=== PATIENT | male | born 1935 | race Caucasian/White ===

== ENCOUNTER 2017-08-28 01:20 | Emergency (ER) | payer MEDICARE, BC ==
[2016-11-27 11:46] VITALS: BMI 30.1
--- NOTE | 2017-08-28 01:23 | ER Report ---
History and Physical Time Seen By MD: 01:20 HPI/ROS CHIEF COMPLAINT: Altered mental status, left arm pain and weakness HISTORY OF PRESENT ILLNESS: 81-year-old male with a history of a pacemaker, cardiac disease, type II diabetes on insulin, chronic end-stage renal disease, not on dialysis was brought in by EMS after he fell asleep in his recliner. He was not wearing his O2. He was mildly hypoxic complaining of left arm pain when his attempted to arouse him. He had no prodromal symptoms. She's not been feeling ill today. He was in his usual state of health. EMS applied O2 brought into the ER. He is in his usual state of health. He voices no complaints. On arrival. She notes no diaphoresis or nausea. He denies shortness of breath. REVIEW OF SYSTEMS: Respiratory: No cough, no dyspnea. Cardiovascular: No chest pain, no palpitations. Gastrointestinal: No vomiting, no abdominal pain. Musculoskeletal: No back pain. Allergies: Coded Allergies: Sulfa (Sulfonamide Antibiotics) (Unverified Allergy, Mild, RASH, 11/27/16) Home Meds Active Scripts Aspirin (ASPIRIN) 81 Mg Tab.chew, 81 MG PO QDAY, #30 TAB.CHEW 10 Refills Prov:JENN PARKINSON MD FACP 08/30/15 Reported Medications Insulin Lispro (HUMALOG) 100 Unit/1 Ml Vial, 100 UNIT SQ, VIAL 11/27/16 Tramadol Hcl (TRAMADOL HCL) 50 Mg Tablet, 1 TAB PO Q4H Y for PAIN, TAB 08/13/16 Metoprolol Succinate (TOPROL XL) 100 Mg Tab.er.24h, 1 TAB PO QDAY, TAB 08/13/16 Hydralazine Hcl (HYDRALAZINE HCL) 50 Mg Tablet, 50 MG PO BID, TAB 08/13/16 [drisdol] No Conflict Check, 95147 PO Q30D ergocalciferol, vitamin D2 08/13/16 Benazepril Hcl (LOTENSIN) 40 Mg Tablet, 40 MG PO BID, TAB 08/13/16 Acetaminophen (TYLENOL) 325 Mg Tablet, 325 MG PO PRN, TAB 08/11/16 Famotidine (FAMOTIDINE) 20 Mg Tablet, 20 MG PO QDAY, TAB 06/08/16 Oxygen (OXYGEN) 2 L Inha, 1.5 L INH PRN, L 12/06/14 Insulin Glargine (Lantus) 100 U/Ml Soln, 27 UNITS SUBQ HS 08/08/12 Triamcinolone Acet (KENALOG 0.1% CREAM (OR EQUIV)) 15 Gm Cr, 1 SAMARA TOP BID Y for ITCHING 08/08/12 Doxazosin Mesylate (Cardura) 8 Mg Tablet, 8 MG PO HS 08/08/12 Simvastatin (Zocor) 40 Mg Tablet, 40 MG PO HS 08/08/12 Past Medical/Surgical History Past medical history: Cardiac pacemaker, type II diabetes, insulin required chronic kidney disease stage IV, with GFR 22 meals per minute, history of coronary artery disease, hypertension. Past surgical history pacemaker placement Reviewed Nurses Notes: Yes Old Medical Records Reviewed: Yes Hx Smoking: Yes Smoking Status: Former Smoker Exposure to Second Hand Smoke?: No Hx Substance Use Disorder: No Hx Alcohol Use: Yes Constitutional Vital Sign - Last 24 Hours 08/28/17 08/28/17 08/28/17 08/28/17 01:20 01:27 01:27 01:30 Temp 97.8 Pulse 71 77 Resp 16 B/P (MAP) 160/94 135/90 (105) Pulse Ox 90 96 O2 Delivery Room Air O2 Flow Rate 3.0 08/28/17 08/28/17 08/28/17 08/28/17 01:35 01:50 02:00 02:05 Pulse 79 70 72 Resp 20 20 21 B/P (MAP) 130/87 (101) Pulse Ox 96 97 97 08/28/17 02:20 Pulse 71 Resp 21 Pulse Ox 95 Physical Exam Vital signs stable, afebrile, pulse ox normal on supplemental O2 General Appearance: The patient is alert, has no immediate need for airway protection and no current signs of toxicity. No acute distress, alert and oriented 3 HEENT: Pupils equal and round no injection. TMs normal, oropharynx without redness or exudate, mucous members are moist Respiratory: Chest is non tender, lungs are clear to auscultation. No wheezing or rails. No chest wall tenderness Cardiac: regular rate and rhythm Gastrointestinal: Abdomen is soft and non tender, no masses, bowel sounds normal. Musculoskeletal: Neck: Neck is supple and non tender. No lymphadenopathy, no JVD Extremities have full range of motion and are non tender. Skin: No rashes or lesions. DIFFERENTIAL DIAGNOSIS: After history and physical exam differential diagnosis was considered for chest pain including but not limited to myocardial ischemia, pericarditis pulmonary embolus, chest wall pain, pleural inflammation and pulmonary infectious causes. Medical Decision Making Data Points Result Diagram: 08/28/17 0115 08/28/17 0115 Laboratory Hematology Test 08/28/17 01:15 Red Blood Count 5.35 M/uL (4.00-5.60) Mean Corpuscular Volume 86.4 fL (80.0-96.0) Mean Corpuscular Hemoglobin 29.1 pg (26.0-33.0) Mean Corpuscular Hemoglobin Concent 33.7 g/dL (32.0-36.0) Red Cell Distribution Width 13.4 % (11.5-14.5) Mean Platelet Volume 8.8 fL (7.2-11.1) Neutrophils (%) (Auto) 60.0 % (39.4-72.5) Lymphocytes (%) (Auto) 26.3 % (17.6-49.6) Monocytes (%) (Auto) 10.8 % (4.1-12.4) Eosinophils (%) (Auto) 2.2 % (0.4-6.7) Basophils (%) (Auto) 0.7 % (0.3-1.4) Nucleated RBC Relative Count (auto) 0.0 /100WBC Neutrophils # (Auto) 4.9 K/uL (2.0-7.4) Lymphocytes # (Auto) 2.1 K/uL (1.3-3.6) Monocytes # (Auto) 0.9 K/uL (0.3-1.0) Eosinophils # (Auto) 0.2 K/uL (0.0-0.5) Basophils # (Auto) 0.1 K/uL (0.0-0.1) Nucleated RBC Absolute Count (auto) 0.00 K/uL D-Dimer Quantitative (PE/DVT) 0.92 ug/ml (0-0.50) Sodium Level 135 mmol/L (137-145) Potassium Level 4.7 mmol/L (3.5-5.0) Chloride Level 98 mmol/L (98-107) Carbon Dioxide Level 23 mmol/L (22-30) Blood Urea Nitrogen 61 mg/dl (9-21) Creatinine 2.60 mg/dl (0.66-1.25) Glomerular Filtration Rate Calc 23.7 Random Glucose 217 mg/dl (75-110) Lactate 2.0 mmol/L (0.7-2.1) Calcium Level 10.7 mg/dl (8.4-10.2) Total Bilirubin 0.4 mg/dl (0.2-1.3) Aspartate Amino Transf (AST/SGOT) 17 U/L (0-35) Alanine Aminotransferase (ALT/SGPT) 25 U/L (0-56) Alkaline Phosphatase 77 U/L (0-126) Troponin I 0.058 ng/ml B-Type Natriuretic Peptide 161 pg/ml (0-100) Total Protein 6.9 gm/dl (6.3-8.2) Albumin 3.9 g/dl (3.5-5.0) Chemistry Test 08/28/17 01:15 White Blood Count 8.1 k/uL (4.5-11.0) Red Blood Count 5.35 M/uL (4.00-5.60) Hemoglobin 15.6 g/dL (14.0-18.0) Hematocrit 46.3 % (42.0-52.0) Mean Corpuscular Volume 86.4 fL (80.0-96.0) Mean Corpuscular Hemoglobin 29.1 pg (26.0-33.0) Mean Corpuscular Hemoglobin Concent 33.7 g/dL (32.0-36.0) Red Cell Distribution Width 13.4 % (11.5-14.5) Platelet Count 187 K/uL (150-450) Mean Platelet Volume 8.8 fL (7.2-11.1) Neutrophils (%) (Auto) 60.0 % (39.4-72.5) Lymphocytes (%) (Auto) 26.3 % (17.6-49.6) Monocytes (%) (Auto) 10.8 % (4.1-12.4) Eosinophils (%) (Auto) 2.2 % (0.4-6.7) Basophils (%) (Auto) 0.7 % (0.3-1.4) Nucleated RBC Relative Count (auto) 0.0 /100WBC Neutrophils # (Auto) 4.9 K/uL (2.0-7.4) Lymphocytes # (Auto) 2.1 K/uL (1.3-3.6) Monocytes # (Auto) 0.9 K/uL (0.3-1.0) Eosinophils # (Auto) 0.2 K/uL (0.0-0.5) Basophils # (Auto) 0.1 K/uL (0.0-0.1) Nucleated RBC Absolute Count (auto) 0.00 K/uL D-Dimer Quantitative (PE/DVT) 0.92 ug/ml (0-0.50) Glomerular Filtration Rate Calc 23.7 Lactate 2.0 mmol/L (0.7-2.1) Calcium Level 10.7 mg/dl (8.4-10.2) Total Bilirubin 0.4 mg/dl (0.2-1.3) Aspartate Amino Transf (AST/SGOT) 17 U/L (0-35) Alanine Aminotransferase (ALT/SGPT) 25 U/L (0-56) Alkaline Phosphatase 77 U/L (0-126) Troponin I 0.058 ng/ml B-Type Natriuretic Peptide 161 pg/ml (0-100) Total Protein 6.9 gm/dl (6.3-8.2) Albumin 3.9 g/dl (3.5-5.0) Coagulation Test 08/28/17 01:15 D-Dimer Quantitative (PE/DVT) 0.92 ug/ml EKG/Imaging EKG Interpretation 12 lead EK Rhythm: Sinus rhythm with premature atrial complexes, left bundle block pattern Todd: normal QRS: normal ST segments: normal, comparison to previous EKG dated 11/27/16 Imaging X-ray: Single view portable chest x-ray was obtained. I viewed the images myself on the PACS system. My interpretation of the images is: No infiltrate, no effusion, intact pacemaker, normal mediastinum., Comparison to previous chest x-ray dated 11/27/16, no significant change. The radiologist interpretation had no clinically significant variation from this interpretation. ED Course/Re-evaluation Clinical Indication for ER IV: IV Access ED Course Patient was admitted to an examination room. H&P was done. The differential diagnoses was considered. On clinical examination. Patient on arrival the ER is doing fine. EMS found him without his oxygen on. He was hypoxic. Complaining of some left arm pain. His at some difficulty arousing him. In the ER is exam is unremarkable. Diagnostic studies are performed. His EKG is unchanged. His troponin comes back mildly elevated at 0.058. His d-dimer was slightly elevated but I do not suspect he had a PE. Unfortunately, cannot have a CT pulmonary angiogram. I do not think it warrants it. Ventilation perfusion scan. Review of his records reveals that he had a troponin running in the 0.070 range through serial checks back in November. He has chronic renal failure. His young cranial nerve baseline. Chest x-ray is unremarkable. Patient advised to follow-up with Dr. Wright his primary doctor this week. Decision to Disposition Date: Aug 28, 2017 Decision to Disposition Time: 02:18 Depart Departure Latest Vital Signs Vital Signs Date Time Temp Pulse Resp B/P (MAP) Pulse Ox O2 Delivery O2 Flow Rate FiO2 08/28/17 02:20 71 21 95 08/28/17 02:00 130/87 (101) 08/28/17 01:27 3.0 08/28/17 01:27 97.8 Room Air Impression: Primary Impression: Hypoxia Additional Impressions: Left arm pain Chronic renal failure Pacemaker Type II diabetes mellitus Condition: Improved Disposition: HOME OR SELF-CARE Referrals: ERROL WRIGHT DO (PCP) Patient Instructions: Arm Pain (ED) Problem Qualifiers Additional Impressions: Chronic renal failure Chronic kidney disease stage: unspecified stage Qualified Codes: N18.9 - Chronic kidney disease, unspecified KOJO CRAWFORD DO Aug 28, 2017 01:23
[2017-08-28] MEDS ORDERED: NS(*) 0.9% 500 ML BAG 500 ML IV ONE (01:29)
[2017-08-28] MEDS ORDERED: ASPIRIN 81 MG CHEW PO ONE (01:30)
[2017-08-28 01:38] LABS: PLATELET COUNT, AUTOMATED 187 K/uL (150-450)
--- NOTE | 2017-08-28 01:58 | EKG ---
[facility] PATIENT NAME: KATHYA BRYAN : [id number] MR: [id number] V: [id number] EXAM DATE: ORDERING PHYSICIAN: KOJO CRAWFORD TECHNOLOGIST: David Murphy Reason : Blood Pressure : / mmHG Vent. Rate : 076 BPM Atrial Rate : 076 BPM P-R Int : 192 ms QRS Dur : 168 ms QT Int : 434 ms P-R-T Axes : 032 -07 138 degrees QTc Int : 488 ms Sinus rhythm with premature atrial complexes Left bundle branch block Abnormal ECG No previous ECGs available Confirmed by PHYLICIA JONES ([id number]) on 08/28/2017 6:38:02 AM Referred By: Confirmed By:PHYLICIA JONES
[2017-08-28 02:00] VITALS: BP 130/87
--- NOTE | 2017-08-28 02:09 | RADIOLOGY IMAGING REPORT ---
FACILITY: [facility] - [place] PATIENT NAME: Pawel Azul : 1935 MR: [id number] V: [id number] EXAM DATE: ORDERING PHYSICIAN: KOJO CRAWFORD TECHNOLOGIST: Location: [facility] [place] Patient: Pawel Azul : 1935 Visit/Account:[id number] Date of Sevice: 08/28/2017 CHEST SINGLE AP 08/28/2017 01:29 hours. HISTORY: Chest pain. COMPARISON: 11/27/2016 and studies dating to 08/08/2012. TECHNIQUE: Portable AP view of the chest. FINDINGS: Tubes/lines/hardware: Pacemaker generator overlies the left axilla, and leads terminate in the right atrium and right ventricle. Pulmonary: The left costophrenic angle is excluded. There is mild left basilar atelectasis or scarrin g, unchanged. The right lung is clear. There is no pneumothorax or pleural effusion. Cardiomediastinal: The cardiac silhouette is at the upper limits of normal, unchanged. The mediastina l silhouette is within normal limits. There is severe aortic calcification. Bones/soft tissues: No acute osseous abnormality. There is mild degenerative change of the spine. The visible abdomen is normal. IMPRESSION: 1. Stable chest without acute process. Report Dictated By: Lissette Swartz at 08/28/2017 2:03 AM Report E-Signed By: Lissette Swartz at 08/28/2017 2:05 AM WSN:[id number]
== END 2017-08-28 02:28 | disposition home or self-care (01) ==
LOC: ER 01:25
DX: E11.9 Type 2 diabetes mellitus without complications (principal); N18.9 Chronic kidney disease, unspecified; Z95.0 Presence of cardiac pacemaker; R09.02 Hypoxemia; M79.602 Pain in left arm; I44.7 Left bundle-branch block, unspecified
CPT/HCPCS: 71045; 83605; 83880; 84484; 85025; 85379; 93005; 96360; 99284; A9270; J7040; 82040; 82247; 82310; 82374; 82435; 82565; 82947; 84075; 84132; 84155; 84295; 84450; 84460; 84520

== ENCOUNTER → 2017-08-28 | Outpatient (CLI) | payer MEDICARE, BC ==
[2016-11-27 11:46] VITALS: BMI 30.1
[~2017-08-28] MED LIST: ACET-1966 PO; AMLO-98 PO; AMLO-99 PO; ASPI81TA94 PO; BENA40TA2 PO; BENA40TA52 PO; BETD15T TOP; CEPH-312; CHOL10005 PO; CLOB59LO4 TP; DOXA8TAB62 PO; ENOX100D5 SQ; FAMO-67 PO; FUR20 PO; HUMALOG SUBQ; HYDR25CA83 PO; HYDR25TA66 PO; HYDR50TA35 PO; INSU100C14 SQ; INSU100V24 SQ; LANI SUBQ; LEV500 PO; LOR5/325; Levofloxacin PO; METO-235 PO; METO-259; METO50TA19 PO; Metronidazole PO; NOR10 PO; NOVOLOG SUBQ; ONDA4TAB PO; OSE75 PO; OXYC-865 PO; OXYGENHOME INH; POLY119P24 PO; PRED20TA6 PO; Prednisone PO; SIMV-44 PO; SUVO20TA PO; TRA50 PO; TRAM-420 PO; TRAZ50 PO; TRIC15T TOP; WARF-1 PO; [UNRECOGNIZED DRUG - CODE] TOP; [UNRECOGNIZED DRUG - OTHER]; drisdol PO
== END ==
LOC: AMB 00:57
PROVIDERS: ATTEND Nurse Practitioner
DX: R53.1 Weakness (principal); M79.602 Pain in left arm; M79.662 Pain in left lower leg; I44.7 Left bundle-branch block, unspecified; I49.3 Ventricular premature depolarization; E11.9 Type 2 diabetes mellitus without complications; Z95.0 Presence of cardiac pacemaker
CPT/HCPCS: A0425; A0427

== ENCOUNTER → 2017-09-07 | Outpatient (CLI) | payer MEDICARE, BC ==
[2016-11-27 11:46] VITALS: BMI 30.1
--- NOTE | 2017-09-07 15:20 | RADIOLOGY IMAGING REPORT ---
[place] [facility] [place] NAME: Pawel Azul : 1935 MR: [id number] V: [id number] EXAM DATE: ORDERING PHYSICIAN: ERROL WRIGHT TECHNOLOGIST: Location: [facility] [place] Patient: Pawel Azul : 1935 Visit/Account:[id number] Date of Sevice: 09/07/[address] scan without contrast HISTORY: Altered mental status COMPARISONS: None TECHNIQUE: Non-contrast head CT was performed with sagittal and coronal reformations. One of the following dose optimization techniques was utilized in the performance of this exam: autom ated exposure control; adjustment of the mA and/or kV according to patient size; or use of iterative reconstruction technique. Specific details can be referenced in the facility's radiology CT exam ope rational policy. FINDINGS: There is no intracranial hemorrhage, hydrocephalus or midline shift. The basal cisterns, baxter-white differentiation, and convexity sulci are maintained. Cataract postsurgical change noted. Chronic lacu gerald infarct versus chronic cystic cavity in the left basal ganglia extends into the left frontal whit e matter. Chronic lacunar infarct in the left frontal deep white matter. Similar chronic lacunar infa rct in the right frontal deep white matter. Mild patchy white matter hypoattenuation. The mastoid air cells are clear. The paranasal sinuses are clear. The osseous structures are normal . IMPRESSION: 1. No acute intracranial abnormality. 2. Chronic lacunar infarct versus chronic cystic cavity from prior ischemia or hemorrhage in the left basal ganglia extends into the left frontal deep white matter. 3. Mild chronic small vessel ischemic change. 4. Chronic lacunar infarcts in the bilateral frontal deep white matter. Report Dictated By: Jacky Donnelly MD at 09/07/2017 3:11 PM Report E-Signed By: Jacky Donnelly MD at 09/07/2017 3:16 PM WSN:[email or web address]
== END ==
LOC: CT 07:52
PROVIDERS: ATTEND Family Medicine
DX: R90.82 White matter disease, unspecified (principal); I67.82 Cerebral ischemia
CPT/HCPCS: 70450

== ENCOUNTER 2017-10-04 08:56 | Emergency (ER) | payer MEDICARE, BC ==
[2016-11-27 11:46] VITALS: Wt 86.4 kg
--- NOTE | 2017-10-04 09:00 | ER Report ---
History and Physical Time Seen By MD: 08:59 HPI/ROS CHIEF COMPLAINT: Right knee injury HISTORY OF PRESENT ILLNESS: Patient is an 81-year-old male who states that he injured his right knee on Tuesday. He states he was at [facility] getting off of a motorized cart and slipped causing his right knee to twist. He is able to ambulate but he is complaining of pain mostly to the lateral aspect of the right knee. He denies any other injuries or complaints. He has a prior left knee replacement.] REVIEW OF SYSTEMS: Respiratory: No cough, no dyspnea. Cardiovascular: No chest pain, no palpitations. Gastrointestinal: No vomiting, no abdominal pain. Musculoskeletal: No back pain. Right knee pain Allergies: Coded Allergies: Sulfa (Sulfonamide Antibiotics) (Unverified Allergy, Mild, RASH, 11/27/16) Home Meds Active Scripts Aspirin (ASPIRIN) 81 Mg Tab.chew, 81 MG PO QDAY, #30 TAB.CHEW 10 Refills Prov:JENN PARKINSON MD FACP 08/30/15 Reported Medications Insulin Glargine,Hum.rec.anlog (Basaglar Kwikpen U-100) 100 Unit/Ml (3 Ml) Insuln.pen 10/04/17 Insulin Lispro 100 Un/Ml Vial (HUMALOG 100 U/ML VIAL) 100 Unit/1 Ml Vial, 100 UNIT SQ, VIAL 11/27/16 Tramadol Hcl (TRAMADOL HCL) 50 Mg Tablet, 1 TAB PO Q4H Y for PAIN, TAB 08/13/16 Metoprolol Succinate (TOPROL XL) 100 Mg Tab.er.24h, 1 TAB PO QDAY, TAB 08/13/16 Hydralazine Hcl (HYDRALAZINE HCL) 50 Mg Tablet, 50 MG PO BID, TAB 08/13/16 [drisdol] No Conflict Check, 21291 PO Q30D ergocalciferol, vitamin D2 08/13/16 Acetaminophen (TYLENOL) 325 Mg Tablet, 325 MG PO PRN, TAB 08/11/16 Famotidine (FAMOTIDINE) 20 Mg Tablet, 20 MG PO QDAY, TAB 06/08/16 Oxygen (OXYGEN) 2 L Inha, 1.5 L INH PRN, L 12/06/14 Triamcinolone Acet (KENALOG 0.1% CREAM (OR EQUIV)) 15 Gm Cr, 1 SAMARA TOP BID Y for ITCHING 08/08/12 Doxazosin Mesylate (Cardura) 8 Mg Tablet, 8 MG PO HS 08/08/12 Discontinued Reported Medications Benazepril Hcl (LOTENSIN) 40 Mg Tablet, 40 MG PO BID, TAB 08/13/16 Insulin Glargine (Lantus) 100 U/Ml Soln, 27 UNITS SUBQ HS 08/08/12 Simvastatin (Zocor) 40 Mg Tablet, 40 MG PO HS 08/08/12 Past Medical/Surgical History Left knee replacement Hx Smoking: Yes Smoking Status: Former Smoker Exposure to Second Hand Smoke?: No Hx Substance Use Disorder: No Hx Alcohol Use: Yes Constitutional Vital Sign - Last 24 Hours 10/04/17 10/04/17 09:07 09:25 Temp 98.0 Pulse 92 Resp 16 B/P (MAP) 158/96 Pulse Ox 92 O2 Delivery Room Air O2 Flow Rate 2.0 Physical Exam General appearance: [Alert no distress.] Right knee: There is no significant swelling. There is no effusion. There is no obvious deformity of the knee. There is moderate tenderness to the the lateral collateral ligament The joint is stable with no comparable ligamentous laxity to the knee. There is no tenderness proximal or distal to the knee. Neurologic exam: The patient has normal sensation distal to the injury. Vascular exam: Normal pulses and capillary refill in the foot [ ] DIFFERENTIAL DIAGNOSIS: After history and physical exam differential diagnosis was considered for knee injury including sprain, fracture, meniscus injury and soft tissue injury. Medical Decision Making EKG/Imaging Imaging FACILITY: [facility] - [place] PATIENT NAME: Pawel Azul : 1935 MR: [id number] V: [id number] EXAM DATE: ORDERING PHYSICIAN: DARYL HAMILTON TECHNOLOGIST: Location: [facility] Patient: Pawel Azul : 1935 Visit/Account:[id number] Date of Sevice: 10/04/2017 Exam type: KNEE 3 VIEW RIGHT History: Fall with pain Comparison: August 14, 2014. Findings: When compared to the prior study again noted are mild to moderate degenerative changes involving the medial compartment of the right knee and moderate joint changes involving the patellofemoral compartment. There is no evidence of acute fracture or dislocation. Chondrocalcinosis is noted in the medial compartment. Extensive vascular calcifications are seen throughout the visualized soft tissues IMPRESSION: 1. Degenerative changes of the right knee as described and chondrocalcinosis in the medial compartment although no evidence of acute fracture or dislocation Severe vascular calcifications throughout the visualized soft tissues Report Dictated By: Astrid Kitchen MD at 10/04/2017 9:45 AM Report E-Signed By: Astrid Kitchen MD at 10/04/2017 9:49 AM WSN:[email or web address] ED Course/Re-evaluation ED Course 10/04/2017 9:16:00 am patient was offered pain medication at this time but refused. We will obtain x-ray of the right knee. Decision to Disposition Date: Oct 04, 2017 Decision to Disposition Time: 09:59 Depart Departure Latest Vital Signs Vital Signs Date Time Temp Pulse Resp B/P (MAP) Pulse Ox O2 Delivery O2 Flow Rate FiO2 10/04/17 09:25 2.0 10/04/17 09:07 98.0 92 16 158/96 92 Room Air Impression: Primary Impression: Right knee sprain Condition: Improved Disposition: HOME OR SELF-CARE Referrals: ERROL WRIGHT DO (PCP) [facility] schedule follow up appointment for reevaluation of your knee sprain Patient Instructions: Knee Sprain (ED), Knee Sprain Exercises (GEN) Problem Qualifiers Primary Impression: Right knee sprain Encounter type: initial encounter Involved ligament of knee: lateral collateral ligament Qualified Codes: S83.421A - Sprain of lateral collateral ligament of right knee, initial encounter DARYL HAMILTON MD Oct 04, 2017 09:00
[2017-10-04] MEDS ORDERED: INSU100I10 (09:18)
--- NOTE | 2017-10-04 09:53 | RADIOLOGY IMAGING REPORT ---
FACILITY: [facility] - [place] PATIENT NAME: Pawel Azul : 1935 MR: [id number] V: [id number] EXAM DATE: ORDERING PHYSICIAN: DARYL HAMILTON TECHNOLOGIST: Location: [facility] Patient: Pawel Azul : 1935 Visit/Account:[id number] Date of Sevice: 10/04/2017 Exam type: KNEE 3 VIEW RIGHT History: Fall with pain Comparison: August 14, 2014. Findings: When compared to the prior study again noted are mild to moderate degenerative changes involving the medial compartment of the right knee and moderate joint changes involving the patellofemoral compartm ent. There is no evidence of acute fracture or dislocation. Chondrocalcinosis is noted in the media l compartment. Extensive vascular calcifications are seen throughout the visualized soft tissues IMPRESSION: 1. Degenerative changes of the right knee as described and chondrocalcinosis in the medial compartme nt although no evidence of acute fracture or dislocation Severe vascular calcifications throughout the visualized soft tissues Report Dictated By: Astrid Kitchen MD at 10/04/2017 9:45 AM Report E-Signed By: Astrid Kitchen MD at 10/04/2017 9:49 AM WSN:[email or web address]
[2017-10-04 10:02] VITALS: BP 156/99
== END 2017-10-04 10:30 | disposition home or self-care (01) ==
LOC: ER 09:07
DX: S83.421A Sprain of lateral collateral ligament of right knee, initial encounter (principal); W18.40XA Slipping, tripping and stumbling without falling, unspecified, initial encounter
CPT/HCPCS: 99282

== ENCOUNTER 2017-10-30 17:25 | Inpatient (IN) | payer MEDICARE, BC ==
[~2017-10-30] VITALS: Ht 182.9 cm; Wt 90.0 kg
[~2017-10-30 17:25] MED LIST changes: +INSU100I10
--- NOTE | 2017-10-30 17:46 | ER Report ---
History and Physical Time Seen By MD: 17:38 Hx. of Stated Complaint: Pt working in yard. Developed chest pain/ trouble breathing. 3 X nitro. (LUCI VANN DO) HPI/ROS CHIEF COMPLAINT: chest fluttering/funny HISTORY OF PRESENT ILLNESS: Pt states the was outside blowing the leaves off there patio and started to feel "funny". Came in and took his blood sugar and it was 59. PT states then started to feel a fluttering type pain in his chest. Pt has nitro at home but never used it. Used it today at 1644, 1651 and 1656. Pt states that it did not due much for his chest but did give him a headache. Pt states he feels a little sob. no nausea. no abd pain. Pt states he has hx of heart ds and a pacer. REVIEW OF SYSTEMS: Constitutional: No fever, no chills. Eyes: No discharge. ENT: No sore throat. Cardiovascular: + chest pain, + palpitations. Respiratory: No cough, + shortness of breath. Gastrointestinal: No abdominal pain, no vomiting. Genitourinary: No hematuria. Musculoskeletal: No back pain. Skin: No rashes. Neurological: No headache. (LUCI VANN DO) Allergies: Coded Allergies: Sulfa (Sulfonamide Antibiotics) (Unverified Allergy, Mild, RASH, 11/27/16) Home Meds Active Scripts Aspirin (ASPIRIN) 81 Mg Tab.chew, 81 MG PO QDAY, #30 TAB.CHEW 10 Refills Prov:JENN PARKINSON MD FACP 08/30/15 Reported Medications Insulin Aspart 100 Un/Ml Pen (NOVOLOG FLEXPEN) 100 Unit/1 Ml Insuln.pen, 100 UNIT SQ, ML 10/30/17 Insulin Glargine,Hum.rec.anlog (Basaglar Kwikpen U-100) 100 Unit/Ml (3 Ml) Insuln.pen, 35 QHS 10/30/17 Tramadol Hcl (TRAMADOL HCL) 50 Mg Tablet, 1 TAB PO Q4H Y for PAIN, TAB 08/13/16 Metoprolol Succinate (TOPROL XL) 100 Mg Tab.er.24h, 1 TAB PO QDAY, TAB 08/13/16 Hydralazine Hcl (HYDRALAZINE HCL) 50 Mg Tablet, 50 MG PO BID, TAB 08/13/16 [drisdol] No Conflict Check, 65873 PO Q30D ergocalciferol, vitamin D2 08/13/16 Acetaminophen (TYLENOL) 325 Mg Tablet, 325 MG PO PRN, TAB 08/11/16 Famotidine (FAMOTIDINE) 20 Mg Tablet, 20 MG PO QDAY, TAB 06/08/16 Oxygen (OXYGEN) 2 L Inha, 1.5 L INH PRN, L 12/06/14 Triamcinolone Acet (KENALOG 0.1% CREAM (OR EQUIV)) 15 Gm Cr, 1 SAMARA TOP BID Y for ITCHING 08/08/12 Doxazosin Mesylate (Cardura) 8 Mg Tablet, 8 MG PO HS 08/08/12 Discontinued Reported Medications Insulin Glargine,Hum.rec.anlog (Basaglar Kwikpen U-100) 100 Unit/Ml (3 Ml) Insuln.pen, 35 10/30/17 Insulin Glargine,Hum.rec.anlog (Basaglar Kwikpen U-100) 100 Unit/Ml (3 Ml) Insuln.pen 10/04/17 Insulin Lispro 100 Un/Ml Vial (HUMALOG 100 U/ML VIAL) 100 Unit/1 Ml Vial, 100 UNIT SQ, VIAL 11/27/16 Past Medical/Surgical History Pmhx: cad, htn, chronic kidney ds, chronic bump in troponin, pacer, 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, lbbb, dm Pshx: pacer, knee, tonsilectomy (LUCI VANN V ) Reviewed Nurses Notes: Yes Old Medical Records Reviewed: Yes (LUCI VANN DO) Hx Smoking: Yes Smoking Status: Former Smoker Exposure to Second Hand Smoke?: No Hx Substance Use Disorder: No Hx Alcohol Use: Yes (LUCI VANN DO) Constitutional Vital Sign - Last 24 Hours 10/30/17 10/30/17 10/30/17 10/30/17 17:32 17:32 17:32 17:40 Temp 98.4 Pulse 67 Resp 16 B/P (MAP) 160/80 160/80 (106) Pulse Ox 79 96 O2 Flow Rate 2.0 10/30/17 10/30/17 10/30/17 10/30/17 17:55 18:10 18:16 18:20 Pulse 66 68 Resp 39 16 B/P (MAP) 163/89 (113) 152/91 (111) Pulse Ox 97 98 10/30/17 10/30/17 10/30/17 10/30/17 18:25 18:40 18:55 19:00 Pulse 60 60 67 Resp 20 23 16 B/P (MAP) 136/79 (98) 157/86 (109) Pulse Ox 97 97 100 10/30/17 10/30/17 10/30/17 10/30/17 19:10 19:15 19:20 19:30 Pulse 60 60 60 Resp 17 21 17 B/P (MAP) 151/84 (106) Pulse Ox 91 92 95 (NAJM,COLBY Cervantes MD) Physical Exam General Appearance: The patient is alert, has no immediate need for airway protection and no signs of toxicity. Eyes: Pupils equal and round no pallor or injection, EOMI ENT: no pharyngeal erythema or exudates, Mucous membranes are moist Respiratory: There are no retractions, lungs are clear to auscultation. Cardiovascular: Regular rate and rhythm. pulses are equal and symmetrical Gastrointestinal: Abdomen is soft and non tender, no masses, bowel sounds normal, no guarding, no rigidity or rebound Neurological: Cranial nerves II-XII grossly intact, no sensory or motor loss Skin: Warm and dry, no rashes. Musculoskeletal: Neck is supple non tender, no vertebral tenderness Extremities are nontender, non swollen and have full range of motion. DIFFERENTIAL DIAGNOSIS: After history and physical exam differential diagnosis was considered for arrhythmia, acs, electrolyte abnl, pneumonia (LAURORA,LUCI V DO) Medical Decision Making Data Points Result Diagram: 10/30/17 1742 10/30/17 1742 Laboratory Hematology Test 10/30/17 17:42 Red Blood Count 5.09 M/uL (4.00-5.60) Mean Corpuscular Volume 87.5 fL (80.0-96.0) Mean Corpuscular Hemoglobin 29.3 pg (26.0-33.0) Mean Corpuscular Hemoglobin Concent 33.5 g/dL (32.0-36.0) Red Cell Distribution Width 14.4 % (11.5-14.5) Mean Platelet Volume 8.4 fL (7.2-11.1) Neutrophils (%) (Auto) 70.7 % (39.4-72.5) Lymphocytes (%) (Auto) 20.0 % (17.6-49.6) Monocytes (%) (Auto) 7.0 % (4.1-12.4) Eosinophils (%) (Auto) 1.8 % (0.4-6.7) Basophils (%) (Auto) 0.5 % (0.3-1.4) Nucleated RBC Relative Count (auto) 0.0 /100WBC Neutrophils # (Auto) 4.9 K/uL (2.0-7.4) Lymphocytes # (Auto) 1.4 K/uL (1.3-3.6) Monocytes # (Auto) 0.5 K/uL (0.3-1.0) Eosinophils # (Auto) 0.1 K/uL (0.0-0.5) Basophils # (Auto) 0.0 K/uL (0.0-0.1) Nucleated RBC Absolute Count (auto) 0.00 K/uL Prothrombin Time 13.1 seconds (12.0-14.4) Prothromb Time International Ratio 0.99 Activated Partial Thromboplast Time 29 seconds (23-35) Sodium Level 139 mmol/L (137-145) Potassium Level 4.3 mmol/L (3.5-5.0) Chloride Level 104 mmol/L (98-107) Carbon Dioxide Level 23 mmol/L (22-30) Blood Urea Nitrogen 43 mg/dl (9-21) Creatinine 2.30 mg/dl (0.66-1.25) Glomerular Filtration Rate Calc 27.4 Random Glucose 268 mg/dl (75-110) Calcium Level 10.0 mg/dl (8.4-10.2) Magnesium Level 2.1 mg/dl (1.7-2.2) Total Bilirubin 0.4 mg/dl (0.2-1.3) Aspartate Amino Transf (AST/SGOT) 25 U/L (0-35) Alanine Aminotransferase (ALT/SGPT) 16 U/L (0-56) Alkaline Phosphatase 66 U/L (0-126) Troponin I 0.039 ng/ml Total Protein 6.6 gm/dl (6.3-8.2) Albumin 3.7 g/dl (3.5-5.0) Chemistry Test 5/6/18 17:42 White Blood Count 7.0 k/uL (4.5-11.0) Red Blood Count 5.09 M/uL (4.00-5.60) Hemoglobin 14.9 g/dL (14.0-18.0) Hematocrit 44.5 % (42.0-52.0) Mean Corpuscular Volume 87.5 fL (80.0-96.0) Mean Corpuscular Hemoglobin 29.3 pg (26.0-33.0) Mean Corpuscular Hemoglobin Concent 33.5 g/dL (32.0-36.0) Red Cell Distribution Width 14.4 % (11.5-14.5) Platelet Count 164 K/uL (150-450) Mean Platelet Volume 8.4 fL (7.2-11.1) Neutrophils (%) (Auto) 70.7 % (39.4-72.5) Lymphocytes (%) (Auto) 20.0 % (17.6-49.6) Monocytes (%) (Auto) 7.0 % (4.1-12.4) Eosinophils (%) (Auto) 1.8 % (0.4-6.7) Basophils (%) (Auto) 0.5 % (0.3-1.4) Nucleated RBC Relative Count (auto) 0.0 /100WBC Neutrophils # (Auto) 4.9 K/uL (2.0-7.4) Lymphocytes # (Auto) 1.4 K/uL (1.3-3.6) Monocytes # (Auto) 0.5 K/uL (0.3-1.0) Eosinophils # (Auto) 0.1 K/uL (0.0-0.5) Basophils # (Auto) 0.0 K/uL (0.0-0.1) Nucleated RBC Absolute Count (auto) 0.00 K/uL Prothrombin Time 13.1 seconds (12.0-14.4) Prothromb Time International Ratio 0.99 Activated Partial Thromboplast Time 29 seconds (23-35) Glomerular Filtration Rate Calc 27.4 Calcium Level 10.0 mg/dl (8.4-10.2) Magnesium Level 2.1 mg/dl (1.7-2.2) Total Bilirubin 0.4 mg/dl (0.2-1.3) Aspartate Amino Transf (AST/SGOT) 25 U/L (0-35) Alanine Aminotransferase (ALT/SGPT) 16 U/L (0-56) Alkaline Phosphatase 66 U/L (0-126) Troponin I 0.039 ng/ml Total Protein 6.6 gm/dl (6.3-8.2) Albumin 3.7 g/dl (3.5-5.0) Coagulation Test 10/30/17 17:42 Prothrombin Time 13.1 seconds Prothromb Time International Ratio 0.99 Activated Partial Thromboplast Time 29 seconds (COLBY NOEL MD) EKG/Imaging EKG Interpretation aflutter @ 67 with lad reviewed old ekgs and pt has no listing of irregular heart beat. Pt does have baseline LBBB (LUCI VANN DO) EKG Interpretation 10/30/2017 7:05:03 pm 12 lead EKG: Rhythm: Atrial flutter 4-1, ventricular rate 60 Ewell: Left axis deviation QRS: Left bundle branch block ST segments: Nonspecific ST changes A flutter has replaced sinus rhythm seen on EKG in August 2017 Imaging X-ray: Chest was obtained. I viewed the images myself on the PACS system. My interpretation of the images is: Borderline cardiomegaly, no acute process. The radiologist interpretation had no clinically significant variation from this interpretation. (COLBY NOEL MD) ED Course/Re-evaluation Clinical Indication for ER IV: IV Access ED Course Will checl labs, ekg, chest xray. 10/30/2017 5:59:14 pm Signed out to Dr. Noel pending all labs and xray. Decision to Disposition Date: October 30, 2017 (LUCI VANN DO) ED Course Received signout from Dr. Brock at 1800. Chest x-ray and labs are unremarkable. Troponin is below patient's baseline level. Patient continued to have a flutter 4-1 on repeat EKG. I discussed the case with [facility] cardiology who believes patient's pacer VVI mode is pacing the ventricles at a rate of 60 even though pacer spikes aren't clearly visible on EKG. He recommends starting warfarin 5 mg daily and a heparin drip until discharge. He states the patient has a [employer] scientific L331 pacer and recommends interrogation device if possible. Spoke with the hospitalist who will accept patient in observation for rule out, with disposition recommendations from cardiology to continue warfarin 5 mg and have patient follow-up with his special equipment technician Dr. Ewing this week. Decision to Disposition Date: October 30, 2017 Decision to Disposition Time: 20:01 (COLBY NOEL MD) Depart Departure Latest Vital Signs Vital Signs Date Time Temp Pulse Resp B/P (MAP) Pulse Ox O2 Delivery O2 Flow Rate FiO2 10/30/17 19:30 60 17 95 10/30/17 19:20 151/84 (106) 10/30/17 17:32 98.4 10/30/17 17:32 2.0 (COLBY NOEL MD) Impression: Primary Impression: Chest pain Additional Impression: New onset atrial flutter Condition: Improved Disposition: Admitted from ER Referrals: ERROL WRIGHT DO (PCP) Problem Qualifiers Primary Impression: Chest pain Chest pain type: precordial pain Qualified Codes: R07.2 - Precordial pain LUCI VANN DO October 30, 2017 17:45 COLBY NOEL MD October 30, 2017 19:51
[2017-10-30] MEDS ORDERED: ASPIRIN 81 MG CHEW PO ONE (17:50)
[2017-10-30] MEDS ORDERED: INSU100I35 SQ (18:09)
[2017-10-30] MEDS ORDERED: INSU100I10 ×2 (18:09)
--- NOTE | 2017-10-30 18:09 | EKG ---
FACILITY: [facility] PATIENT NAME: KATHYA BRYAN : [id number] MR: [id number] V: [id number] EXAM DATE: ORDERING PHYSICIAN: LUCI VANN TECHNOLOGIST: SIDNEY Test Reason : SOB/CP Blood Pressure : / mmHG Vent. Rate : 067 BPM Atrial Rate : 326 BPM P-R Int : 000 ms QRS Dur : 120 ms QT Int : 514 ms P-R-T Axes : 071 -62 080 degrees QTc Int : 543 ms Atrial flutter with 5:1 AV conduction Left axis deviation Nonspecific intraventricular conduction delay Abnormal ECG When compared with ECG of 28-AUG-2017 01:17, Atrial flutter has replaced Sinus rhythm Nonspecific intraventricular conduction delay has replaced Left bundle branch block Confirmed by PHYLICIA JONES ([id number]) on 10/31/2017 7:10:18 AM Referred By: GAETANO Confirmed By:PHYLICIA JONES
[2017-10-30 18:10] LABS: INR 0.99
[2017-10-30 18:11] LABS: PLATELET COUNT, AUTOMATED 164 K/uL (150-450)
--- NOTE | 2017-10-30 18:27 | RADIOLOGY IMAGING REPORT ---
FACILITY: [facility] PATIENT NAME: Pawel Azul : 1935 MR: [id number] V: [id number] EXAM DATE: ORDERING PHYSICIAN: LUCI VANN TECHNOLOGIST: Location: [facility] [place] Patient: Pawel Azul : 1935 Visit/Account:[id number] Date of Sevice: 10/30/2017 Examination: CHEST PA AND LAT Comparison: 08/28/2017 and earlier. History: Chest pain. Findings: Cardiac silhouette is borderline enlarged but unchanged. Aortic atherosclerosis. Pacemaker as before. No new or enlarging consolidation, nodule, or evidence of peribronchial inflammation. No pneumothorax , edema, or effusion. Osseous structures are intact. IMPRESSION: Unchanged chest with no evidence of acute cardiopulmonary disease. Report Dictated By: Mahamed Morin MD at 10/30/2017 6:22 PM Report E-Signed By: Mahamed Morin MD at 10/30/2017 6:23 PM WSN:[id number]
--- NOTE | 2017-10-30 19:35 | EKG ---
FACILITY: [facility] PATIENT NAME: KATHYA BRYAN : [id number] MR: [id number] V: [id number] EXAM DATE: ORDERING PHYSICIAN: COLBY NOEL TECHNOLOGIST: MANPREET Test Reason : ARRYTHMIA Blood Pressure : / mmHG Vent. Rate : 060 BPM Atrial Rate : 264 BPM P-R Int : 000 ms QRS Dur : 146 ms QT Int : 466 ms P-R-T Axes : 000 -05 124 degrees QTc Int : 466 ms Atrial flutter Left bundle branch block Abnormal ECG When compared with ECG of 30-OCT-2017 17:33, Left bundle branch block has replaced Nonspecific intraventricular conduction delay Confirmed by PHYLICIA JONES ([id number]) on 10/31/2017 7:08:52 AM Referred By: Confirmed By:PHYLICIA JONES
[2017-10-30] MEDS ORDERED: WARFARIN SOD 5 MG TAB PO ONE (19:55)
[2017-10-30 20:24] VITALS: BP 190/103
[2017-10-30] MEDS ORDERED: NS(*) 0.9% 1000 ML BAG 1,000 ML IV PRN (21:31)
[2017-10-30] MEDS ORDERED: INFLUENZA VIRUS VAC 0.5 ML SYR IM ONLY ONE (21:35)
--- NOTE | 2017-10-30 22:28 | History & Physical ---
History of Present Illness Chief Complaint Weakness, chest pain. History of Present Illness The patient is an 81 year old male with PMH of CAD and type II DM who presents with fatigue/weakness and chest pain for 24-48 hours. The patient denies nausea , vomiting or diaphoresis associated with the chest pain. He has a pacemaker in place. He denies any other associated symptoms. He has otherwise been doing fairly well. He sees cardiology in [facility] but has not followed up with them since last summer. His PCP is Dr. Molina. His last follow up was 4-5 months ago. History Problems: (1) Wenckebach second degree AV block Status: Acute (2) Type II diabetes mellitus Status: Acute (3) Benign hypertension Status: Chronic (4) Chronic kidney disease (CKD) stage G4/A1, severely decreased glomerular filtration rate (GFR) between 15-29 mL/min/1.73 square meter and albuminuria creatinine ratio less than 30 mg/g Status: Chronic (5) CAD (coronary artery disease) Status: Chronic (6) BPH (benign prostatic hyperplasia) Status: Chronic (7) Hyperlipidemia Status: Chronic (8) Gout Status: Chronic (9) DVT (deep venous thrombosis) Status: Resolved (10) History of lumbar laminectomy Status: Chronic (11) Dermatitis Status: Chronic (12) Renal mass Status: Chronic (13) Hearing loss Status: Chronic (14) Constipation Status: Acute Home Meds Active Scripts Aspirin (ASPIRIN) 81 Mg Tab.chew, 81 MG PO QDAY, #30 TAB.CHEW 10 Refills Prov:JENN PARKINSON MD [facility] 08/30/15 Reported Medications Insulin Aspart 100 Un/Ml Pen (NOVOLOG FLEXPEN) 100 Unit/1 Ml Insuln.pen, 100 UNIT SQ, ML 10/30/17 Insulin Glargine,Hum.rec.anlog (Basaglar Kwikpen U-100) 100 Unit/Ml (3 Ml) Insuln.pen, 35 QHS 10/30/17 Tramadol Hcl (TRAMADOL HCL) 50 Mg Tablet, 1 TAB PO Q4H Y for PAIN, TAB 08/13/16 Metoprolol Succinate (TOPROL XL) 100 Mg Tab.er.24h, 1 TAB PO QDAY, TAB 08/13/16 Hydralazine Hcl (HYDRALAZINE HCL) 50 Mg Tablet, 50 MG PO BID, TAB 08/13/16 Acetaminophen (TYLENOL) 325 Mg Tablet, 325 MG PO PRN, TAB 08/11/16 Famotidine (FAMOTIDINE) 20 Mg Tablet, 20 MG PO QDAY, TAB 06/08/16 Oxygen (OXYGEN) 2 L Inha, 2 L INH HS Y for SEE COMMENT, L 12/06/14 Triamcinolone Acet (KENALOG 0.1% CREAM (OR EQUIV)) 15 Gm Cr, 1 SAMARA TOP BID Y for ITCHING 08/08/12 Doxazosin Mesylate (Cardura) 8 Mg Tablet, 8 MG PO HS 08/08/12 Discontinued Reported Medications Insulin Glargine,Hum.rec.anlog (Basaglar Kwikpen U-100) 100 Unit/Ml (3 Ml) Insuln.pen, 35 10/30/17 Insulin Glargine,Hum.rec.anlog (Basaglar Kwikpen U-100) 100 Unit/Ml (3 Ml) Insuln.pen 10/04/17 Insulin Lispro 100 Un/Ml Vial (HUMALOG 100 U/ML VIAL) 100 Unit/1 Ml Vial, 100 UNIT SQ, VIAL 11/27/16 [drisdol] No Conflict Check, 96356 PO Q30D ergocalciferol, vitamin D2 08/13/16 Allergies: Coded Allergies: Sulfa (Sulfonamide Antibiotics) (Unverified Allergy, Mild, RASH, 11/27/16) Patient History: FH: cancer MOTHER BROTHER OR SISTER FH: diabetes mellitus CHILD FH: emphysema BROTHER OR SISTER Other Social/Family Hx The patient lives at home with his . Hx Smoking: Yes (QUIT 40 YEARS AGO) Smoking Status: Former Smoker Exposure to Second Hand Smoke?: Yes Caffeine Intake: Coffee, Soda Caffeine/Cups Per Day: 5 Hx Alcohol Use: Yes Alcohol Used: Liquor Hx Substance Use Disorder: No Social Drug Use: Never History of IV Drug Use: No Review of Systems All Systems Reviewed/Normal: Yes, Except as Noted Constitutional: No Fever Neurological: Weakness Eyes: No Vision Change ENT: Hearing Loss Cardiovascular: Chest Pain Gastrointestinal: No Nausea, No Vomiting Other Patient has had ulcerated lesion tip of nose for some time. Won't heal. Has history of basal cell CA on his arm in past. Exam Vital Signs Vital Signs Date Time Temp Pulse Resp B/P (MAP) Pulse Ox O2 Delivery O2 Flow Rate FiO2 5/6/18 20:24 98.1 65 16 190/103 (132) 93 Room Air 10/30/17 17:32 2.0 General Appearance: Alert, Awake, No Acute Distress, Afebrile Neuro: No Gross deficits Eyes: PERRLA Cardiovascular: Regular Rate and Rhythm Respiratory: Clear to Auscultation GI: Abd Soft and Non-Tender Extremities: Warm, Perfused, Other (No significant edema.) Integumentary: Generalized Fragile Skin, Other (Ulcerated lesion tip of nose with heaped up borders.) Psych: Appropriate Mood & Affect Medical Decision Making Data Points Result Diagram: 10/30/17 1742 10/30/17 174 Item Value Date Time Calcium Level 10.0 mg/dl 10/30/17 1742 Total Bilirubin 0.4 mg/dl 10/30/17 1742 Aspartate Amino Transf (AST/SGOT) 25 U/L 10/30/17 1742 Alanine Aminotransferase (ALT/SGPT) 16 U/L 10/30/17 1742 Alkaline Phosphatase 66 U/L 10/30/17 1742 Total Protein 6.6 gm/dl 10/30/17 1742 Albumin 3.7 g/dl 10/30/17 1742 Troponin I 0.039 ng/ml 10/30/17 1742 Magnesium Level 2.1 mg/dl 10/30/17 1742 Prothromb Time International Ratio 0.99 10/30/17 1742 EKG / Imaging EKG Interpretation [place] [facility] [place] PATIENT NAME: PAWEL AZUL : [id number] MR: [id number] V: [id number] EXAM DATE: ORDERING PHYSICIAN: LUCI VANN TECHNOLOGIST: SIDNEY Test Reason : SOB/CP Blood Pressure : / mmHG Vent. Rate : 067 BPM Atrial Rate : 326 BPM P-R Int : 000 ms QRS Dur : 120 ms QT Int : 514 ms P-R-T Axes : 071 -62 080 degrees QTc Int : 543 ms Atrial flutter with 5:1 AV conduction Left axis deviation Nonspecific intraventricular conduction delay Abnormal ECG When compared with ECG of 28-AUG-2017 01:17, Atrial flutter has replaced Sinus rhythm Nonspecific intraventricular conduction delay has replaced Left bundle branch block Referred By: GAETANO Confirmed By: [id number] T: / Imaging [place]ACILITY: [facility] [place] PATIENT NAME: Pawel Azul : 1935 MR: [id number] V: [id number] EXAM DATE: ORDERING PHYSICIAN: LUCI VANN TECHNOLOGIST: Location: [facility] Patient: Pawel Azul : 1935 Visit/Account:[id number] Date of Sevice: 10/30/2017 Examination: CHEST PA AND LAT Comparison: 08/28/2017 and earlier. History: Chest pain. Findings: Cardiac silhouette is borderline enlarged but unchanged. Aortic atherosclerosis. Pacemaker as before. No new or enlarging consolidation, nodule, or evidence of peribronchial inflammation. No pneumothorax, edema, or effusion. Osseous structures are intact. IMPRESSION: Unchanged chest with no evidence of acute cardiopulmonary disease. Report Dictated By: Mahamed Morin MD at 10/30/2017 6:22 PM Report E-Signed By: Mahamed Morin MD at 10/30/2017 6:23 PM WSN:[id number] Pre-Admit Course ED Medications ASA 325mg, Coumadin 5mg Medical Record Review: Yes Assessment and Plan Problems: (1) Chest pain Status: Acute Assessment & Plan: Initial troponin in equivocal range. He does have renal failure. Will repeat at 2345. EKG does not show acute ischemic changes. Will place on telemetry and monitor closely. (2) New onset atrial flutter Status: Acute Assessment & Plan: With 5:[address] Mitchell spoke with [facility] cardiology and the grocery store bagger log pond worker recommended admitting the patient for rule out PR and initiating anticoagulation. Will admit, place on telemetry and get serial troponins. (3) Generalized weakness Status: Acute Assessment & Plan: Likely due to loss of atrial kick due to atrial flutter. (4) CAD (coronary artery disease) Status: Chronic Assessment & Plan: The patient appears to be on aspirin 81mg and metoprolol at home per the med rec. His med list was taken home by his before it could be reviewed on the medical floor. Will need to contact his PCP, Dr. Molina, or [facility] in the am to confirm. (5) Type II diabetes mellitus Status: Acute Assessment & Plan: The patient was started on Basaglar and per the med rec takes 36u at HS. Will place on diabetic diet and give glargine insulin 25u tonight with additional SSI prn. (6) Chronic kidney disease (CKD) stage G4/A1, severely decreased glomerular filtration rate (GFR) between 15-29 mL/min/1.73 square meter and albuminuria creatinine ratio less than 30 mg/g Status: Chronic Assessment & Plan: His current creatinine is 2.3 which appears to be his baseline. (7) Benign hypertension Status: Chronic Assessment & Plan: His blood pressure is currently elevated. Per the med reconciliation he takes hydralazine 50mg bid in addition to metoprolol 100mg daily. (8) Pacemaker Status: Acute Assessment & Plan: His heart rate is 60bpm but can not see pacer spikes on EKG. He will need to have his pacemaker interrogated to see if it is functioning properly. Time Spent on Plan of Care: < 30 min Exam Sepsis Risk: No Definite Risk Problem Qualifiers (1) Chest pain: Chest pain type: precordial pain Qualified Codes: R07.2 - Precordial pain PHYLICIA LOWRY MD October 30, 2017 22:27
[2017-10-30] MEDS: hydrALAZINE HCL 25 MG TAB PO SCH (22:33)
[2017-10-30] MEDS: INSULIN GLARGINE 100 U/ML 3 ML PEN SUBQ SCH (22:34)
[2017-10-30] MEDS: INSULIN HUM LISPRO 100 UN/ML 3 ML VIAL SUBQ PRN (22:34)
[2017-10-30 22:35] VITALS: BP 159/93
[2017-10-30 23:16] VITALS: BP 149/76
[2017-10-31 03:25] VITALS: BP 119/62
[2017-10-31] MEDS: ACETAMINOPHEN 325 MG TAB PO PRN ×2 (03:56→22:09)
[2017-10-31 05:49] LABS: INR 1.01; PLATELET COUNT, AUTOMATED 155 K/uL (150-450)
--- NOTE | 2017-10-31 10:12 | Hospitalist Progress Note ---
Subjective Progress Notes Subjective He reports feeling improved. No CP/tightness. No dyspnea at rest. Physical Exam Vital Signs Date Time Temp Pulse Resp B/P (MAP) Pulse Ox O2 Delivery O2 Flow Rate FiO2 10/31/17 03:59 60 10/31/17 03:25 98.7 18 119/62 (81) 91 Nasal Cannula 1.0 Intake and Output 11/01/17 06:59 Intake Total 240 ml Balance 240 ml Intake Oral 240 ml General Appearance: Alert, Awake Cardiovascular: Other (Fairly regular slightly bradycardic with soft systolic murmur) Respiratory: Other (essentially clear) Chest: No Tenderness, Other (pacer left upper chest) GI: Soft and Non-Tender Extremities: Warm, Perfused Psych: Alert & Oriented X3 Result Diagram: 10/31/1752510/31/17525 Assessment and Plan Problems: (1) Chest pain Status: Acute Assessment & Plan: Troponin is essentially unchanged in equivocal range. He does have chronic renal failure. His rhythm has been ventricular paced at 60bpm with background a-flutter/fib. Will continue on telemetry and monitor closely. (2) New onset atrial flutter Status: Acute Assessment & Plan: Dr. Mitchell spoke with [facility] cardiology and the summer law clerk data reduction technician recommended admitting the patient for rule out OK and initiating anticoagulation. He has been essentially pacemaker dependent with rate at 60bpm. Question if his dyspnea/chest symptoms/activity intolerance is due to needing an increase in heart rate with activities. Will see if cardiology can evaluate/modify his pacer when they are here tomorrow. (3) Generalized weakness Status: Acute Assessment & Plan: May be due to loss of atrial kick due to atrial fib/flutter or possibly rate is set at 60bpm without variability. Will try mobilizing him to see how he does. Will see if cardiology can see/modify pacer if needed. (4) CAD (coronary artery disease) Status: Chronic Assessment & Plan: The patient appears to be on aspirin 81mg and metoprolol at home per the med rec. His med list was taken home by his before it could be reviewed on the medical floor. Will check on his medications. (5) Type II diabetes mellitus Status: Acute Assessment & Plan: The patient was started on Basaglar and per the med rec takes 36u at HS. Will place on diabetic diet and give glargine insulin 25u tonight with additional SSI prn. (6) Chronic kidney disease (CKD) stage G4/A1, severely decreased glomerular filtration rate (GFR) between 15-29 mL/min/1.73 square meter and albuminuria creatinine ratio less than 30 mg/g Status: Chronic Assessment & Plan: His current creatinine is 2.2 today (2.3 at admit which appears to be his baseline). (7) Benign hypertension Status: Chronic Assessment & Plan: His blood pressure is better controlled this AM. Per the med reconciliation he takes hydralazine 50mg BID in addition to metoprolol 100mg daily. (8) Pacemaker Status: Acute Assessment & Plan: His heart rate is 60bpm. Will see how he does with low level of activities. He may need to have his pacemaker interrogated. Will discuss with cardiology. Exam Sepsis Risk: No Definite Risk Problem Qualifiers (1) Chest pain: Chest pain type: precordial pain Qualified Codes: R07.2 - Precordial pain TORRI LOWRY MD October 31, 2017 10:12
[2017-10-31 10:44] VITALS: BP 157/77
[2017-10-31] MEDS: hydrALAZINE HCL 25 MG TAB PO SCH ×2 (10:47→21:06)
[2017-10-31] MEDS: FAMOTIDINE 20 MG TAB PO SCH (10:47)
[2017-10-31] MEDS: ASPIRIN 81 MG CHEW PO SCH (10:47)
[2017-10-31 11:01] VITALS: Ht 182.9 cm; Wt 90.0 kg
[2017-10-31] MEDS ORDERED: WARFARIN SOD 5 MG TAB PO SCH (13:00)
[2017-10-31 14:20] VITALS: BP 169/77
[2017-10-31] MEDS ORDERED: ENOXAPARIN 100 MG/ML SYR SC SCH (15:00)
[2017-10-31] MEDS: INSULIN HUM LISPRO 100 UN/ML 3 ML VIAL SUBQ PRN ×2 (17:24→21:04)
[2017-10-31] MEDS: PSYLLIUM 28% 1 PACKET PO SCH (18:18)
[2017-10-31 18:59] VITALS: BP 189/90
[2017-10-31 20:57] VITALS: BP 142/89
[2017-10-31] MEDS: METOPROLOL TART 50 MG TAB PO SCH (21:03)
[2017-10-31] MEDS: INSULIN GLARGINE 100 U/ML 3 ML PEN SUBQ SCH (21:04)
[2017-10-31 22:10] VITALS: BP 158/91
[2017-11-01 03:55] VITALS: BP 146/83
[2017-11-01 05:57] LABS: PLATELET COUNT, AUTOMATED 143 K/uL (150-450)
[2017-11-01 06:05] LABS: INR 1.18
[2017-11-01 07:40] VITALS: BP 165/82
[2017-11-01] MEDS ORDERED: FURO-45 PO (08:18)
[2017-11-01] MEDS ORDERED: HYDR50TA35 PO (08:18)
[2017-11-01] MEDS ORDERED: CLOB15CR22 TP (08:18)
[2017-11-01] MEDS ORDERED: INSU100I35 SQ (08:18)
[2017-11-01] MEDS ORDERED: NIT4 SL (08:18)
[2017-11-01] MEDS ORDERED: SIMV-54 PO (08:18)
[2017-11-01] MEDS ORDERED: CAL25 FT (08:18)
[2017-11-01] MEDS ORDERED: INSU100I30 SQ (08:18)
[2017-11-01] MEDS ORDERED: BENA40TA52 PO (08:18)
[2017-11-01] MEDS: ASPIRIN 81 MG CHEW PO SCH (09:42)
[2017-11-01] MEDS: FAMOTIDINE 20 MG TAB PO SCH (09:42)
[2017-11-01] MEDS: hydrALAZINE HCL 25 MG TAB PO SCH (09:43)
[2017-11-01] MEDS: PSYLLIUM 28% 1 PACKET PO SCH ×2 (09:43→09:46)
[2017-11-01] MEDS: METOPROLOL TART 50 MG TAB PO SCH (09:43)
--- NOTE | 2017-11-01 09:55 | Hospitalist Progress Note ---
Subjective Progress Notes Subjective This patient was admitted for chest pain. He had no acute issues overnight. Patient Complains of: Cardiovascular: No: Chest Pain Respiratory: No: Shortness of Breath Physical Exam Vital Signs Date Time Temp Pulse Resp B/P (MAP) Pulse Ox O2 Delivery O2 Flow Rate FiO2 11/01/17 07:55 60 11/01/17 07:55 90 Room Air 11/01/17 07:40 98.4 18 165/82 (109) 10/31/17 22:10 1.0 Intake and Output 11/02/17 06:59 Intake Total 1204 ml Balance 1204 ml Intake Oral 360 ml IV Total 844 ml # Bowel Movements 1 Cardiovascular: Regular Rate and Rhythm Respiratory: Clear to Auscultation Extremities: No Edema Integumentary: No Cyanosis Result Diagram: 11/01/17 0535 11/01/17 0535 Assessment and Plan Problems: (1) Chest pain Status: Acute Assessment & Plan: His troponin and EKG have not shown any significant change. (2) New onset atrial flutter Status: Acute Assessment & Plan: Dr. Mitchell spoke with [facility] cardiology and the public health nutritionist director executive communications recommended admitting the patient for rule out NM and initiating anticoagulation. He has been essentially pacemaker dependent with rate at 60bpm. He has been started on Lovenox and warfarin. (3) Generalized weakness Status: Acute Assessment & Plan: Physical therapy has been consulted. (4) CAD (coronary artery disease) Status: Chronic Assessment & Plan: He is on chronic treatment with aspirin and warfarin. (5) Type II diabetes mellitus Status: Acute Assessment & Plan: The patient was started on Basaglar and per the med rec takes 36u at HS. Will place on diabetic diet and give glargine insulin 25u tonight with additional SSI prn. (6) Chronic kidney disease (CKD) stage G4/A1, severely decreased glomerular filtration rate (GFR) between 15-29 mL/min/1.73 square meter and albuminuria creatinine ratio less than 30 mg/g Status: Chronic Assessment & Plan: His current creatinine is 2.2 today (2.3 at admit which appears to be his baseline). (7) Benign hypertension Status: Chronic Assessment & Plan: His blood pressure is better controlled this AM. Per the med reconciliation he takes hydralazine 50mg BID in addition to metoprolol 100mg daily. (8) Pacemaker Status: Acute Assessment & Plan: His heart rate is 60bpm. Will see how he does with low level of activities. He may need to have his pacemaker interrogated. Will discuss with cardiology. Exam Sepsis Risk: No Definite Risk Problem Qualifiers (1) Chest pain: Chest pain type: precordial pain Qualified Codes: R07.2 - Precordial pain TAURUS ODOM DO November 01, 2017 09:55
[2017-11-01] MEDS ORDERED: WARF-1 PO (10:49)
[2017-11-01] MEDS ORDERED: METO25TA93 PO (10:49)
[2017-11-01] MEDS ORDERED: ENOX40DI9 SQ (10:49)
[2017-11-01] MEDS ORDERED: HYDR25TA66 PO (10:49)
--- NOTE | 2017-11-01 10:54 | Hospitalist Depart ---
Discharge Summary Reason for Hosp/Final Diag: (1) Chest pain Status: Acute Hospital Course & Plan: His troponin and EKG have not shown any significant change. (2) New onset atrial flutter Status: Acute Hospital Course & Plan: We did discuss this with his state game warden Dr. Ewing. It was recommended that he be started on anticoagulation. He has been started on warfarin, but will require a few days of coverage with Lovenox until his INR is therapeutic. He will follow up at Dr. Chappell's office for INR testing on 11/03/2017. His pacemaker was interrogated remotely and reported to be functioning appropriately. (3) CAD (coronary artery disease) Status: Chronic Hospital Course & Plan: He is on chronic treatment with aspirin. (4) Type II diabetes mellitus Status: Acute Hospital Course & Plan: He will resume his home insulin schedule. (5) Chronic kidney disease (CKD) stage G4/A1, severely decreased glomerular filtration rate (GFR) between 15-29 mL/min/1.73 square meter and albuminuria creatinine ratio less than 30 mg/g Status: Chronic (6) Benign hypertension Status: Chronic Hospital Course & Plan: He is on chronic treatment with hydralazine and metoprolol. (7) Pacemaker Status: Acute Departure Latest Vital Signs Vital Signs 10/31/17 11/01/17 11/01/17 22:10 07:40 07:55 Temp 98.4 Pulse 60 Resp 18 B/P (MAP) 165/82 (109) Pulse Ox 90 O2 Delivery Room Air O2 Flow Rate 1.0 Weight (Pounds): 198 Weight (Ounces): 8.0 Result Diagram: 11/01/17 0535 11/01/17 0535 Condition: Improved Discharge: Home, Self Care Discharge Instructions Home Meds Active Scripts Enoxaparin Sodium (ENOXAPARIN SODIUM) 40 Mg/0.4 Ml Disp.syrin, 40 MG SQ DAILY, # 2 SYR Prov:TAURUS ODOM DO 11/01/17 Hydralazine Hcl (HYDRALAZINE HCL) 25 Mg Tablet, 25 MG PO BID, #60 TAB Prov:TAURUS ODOM DO 11/01/17 Warfarin Sodium (COUMADIN) 5 Mg Tablet, 5 MG PO QDAY@13, #30 TAB Prov:TAURUS ODOM DO 5/8/18 Metoprolol Tartrate (METOPROLOL TARTRATE) 25 Mg Tablet, 1 TAB PO BID, #60 TAB Prov:TAURUS ODOM DO 11/01/17 Aspirin (ASPIRIN) 81 Mg Tab.chew, 81 MG PO QDAY, #30 TAB.CHEW 10 Refills Prov:JENN PARKINSON MD FACP 08/30/15 Reported Medications Insulin Aspart 100 Un/Ml Pen (NOVOLOG FLEXPEN) 100 Unit/1 Ml Insuln.pen, 4 UNIT SQ TID, ML 11/01/17 Nitroglycerin (NITROSTAT) 0.4 Mg Subl, 0.4 MG SL Q5MIN 11/01/17 Hydralazine Hcl (HYDRALAZINE HCL) 50 Mg Tablet, 50 MG PO TID, TAB 11/01/17 Clobetasol Propionate/Emoll (CLOBETASOL EMOLLIENT 0.05% CRM) 15 Gm Cream..g., 0 TP BID 11/01/17 Calcitriol (CALCITRIOL) 0.25 Mcg Cap, 0.25 MCG FT 5 times a week, CAP 11/01/17 Benazepril Hcl (BENAZEPRIL HCL) 40 Mg Tablet, 40 MG PO BID, TAB 11/01/17 Insulin Glargine,Hum.rec.anlog (Basaglar Kwikpen U-100) 100 Unit/Ml (3 Ml) Insuln.pen, 35 QHS 10/30/17 Metoprolol Succinate (TOPROL XL) 100 Mg Tab.er.24h, 1 TAB PO QDAY, TAB 08/13/16 Hydralazine Hcl (HYDRALAZINE HCL) 50 Mg Tablet, 50 MG PO BID, TAB 08/13/16 Acetaminophen (TYLENOL) 325 Mg Tablet, 325 MG PO PRN, TAB 08/11/16 Famotidine (FAMOTIDINE) 20 Mg Tablet, 20 MG PO QDAY, TAB 06/08/16 Oxygen (OXYGEN) 2 L Inha, 2 L INH HS Y for SEE COMMENT, L 12/06/14 Discontinued Reported Medications Simvastatin (SIMVASTATIN) 40 Mg Tablet, 40 MG PO HS, TAB 11/01/17 Insulin Glargine 100 Un/Ml Pen (LANTUS SOLOSTAR PEN) 100 Unit/1 Ml Insuln.pen, 27 UNIT SQ DAILY, ML 11/01/17 Furosemide (FUROSEMIDE) 20 Mg Tablet, 1 TAB PO DAILY, TAB 11/01/17 Insulin Aspart 100 Un/Ml Pen (NOVOLOG FLEXPEN) 100 Unit/1 Ml Insuln.pen, 100 UNIT SQ, ML 10/30/17 Tramadol Hcl (TRAMADOL HCL) 50 Mg Tablet, 1 TAB PO Q4H Y for PAIN, TAB 08/13/16 Triamcinolone Acet (KENALOG 0.1% CREAM (OR EQUIV)) 15 Gm Cr, 1 SAMARA TOP BID Y for ITCHING 08/08/12 Doxazosin Mesylate (Cardura) 8 Mg Tablet, 8 MG PO HS 08/08/12 Insulin Glargine,Hum.rec.anlog (Basaglar Kwikpen U-100) 100 Unit/Ml (3 Ml) Insuln.pen, 35 10/30/17 Insulin Glargine,Hum.rec.anlog (Basaglar Kwikpen U-100) 100 Unit/Ml (3 Ml) Insuln.pen 10/04/17 Insulin Lispro 100 Un/Ml Vial (HUMALOG 100 U/ML VIAL) 100 Unit/1 Ml Vial, 100 UNIT SQ, VIAL 11/27/16 [drisdol] No Conflict Check, 93408 PO Q30D ergocalciferol, vitamin D2 08/13/16 Activity: As Tolerated Copies to: ERROL WRIGHT DO Venous Thromboembolism Antithrombotics Is Pt On Any Antithrombotics?: Yes Problem Qualifiers (1) Chest pain: Chest pain type: precordial pain Qualified Codes: R07.2 - Precordial pain TAURUS ODOM DO November 01, 2017 10:54
--- NOTE | 2017-11-01 17:51 | RADIOLOGY IMAGING REPORT ---
FACILITY: [facility] PATIENT NAME: KATHYA BRYAN : [id number] MR: [id number] V: [id number] EXAM DATE: ORDERING PHYSICIAN: TORRI LOWRY TECHNOLOGIST: Jenny Stewart EXAMINATION:TWO-DIMENSIONAL ECHOCARDIOGRAPH REASON:CHEST PAIN 2D Measurements (normal values in centimeters) LV endLV endRV endVent.LV PostAorticLeftPercent DiastolicSystolicDiastolicSeptumWallRootAtriumShortening (3.5-5.7)(0.9-2.6)(0.6-1.1)(0.6-1.1)(2.0-3.7)(1.9-4.0)(25-35%) [id number]% STROKE VOLUME: 50.7ml ESTIMATED EJECTION FRACTION:40% PARASTERNAL LONG AXIS: Overall left ventricular appears to be mildly enlarged. Right ventricle is also enlarged. Patient is in atrial flutter. No thrombi are noted in this view but the left atrial appendage was not seen. Color examination of the aortic valve revealed some aortic insufficiency. There is also some mitral insufficiency present. View is somewhat technically difficult. The harmon were not seen well. PARASTERNAL SHORT AXIS: Aortic valve is probably trileaflet in configuration although all the leaflets were not seen well. There is pulmonic insufficiency as well as aortic & tricuspid insufficiency noted. Left ventricular systolic function appears to be decreased. There is especially hypokinesis along the septal wall. Right ventricle is enlarged. APICAL FOUR AND TWO CHAMBER: Decreased left ventricular systolic function. There appears to be some akinesis along the septal wall. No thrombi are noted in any of the chambers but again the left atrial appendage is not seen. Mild mitral annular calcification with a mild amount of mitral insufficiency noted. Aortic valve area was measured within normal ranges at 3.2cm2.Ttricuspid regurgitation Vmax measured 3.16m/sec. Estimated right atrial pressure was 3mm Hg giving a total right ventricular systolic pressure of 43mm Hg indicating mild to borderline moderate pulmonary hypertension & increased right ventricular systolic pressures. Left atrial & right atrial volumes measure within normal ranges at 22ml/m2 respectively. Borderline concentric left ventricular thickening more along the posterior wall. No evidence for any outflow tract obstruction. SUBCOSTAL VIEW: Not seen well, but no pericardial effusion was noted. Definity contrast was used with hypokinesis if not a small area of akinesis along the interventricular septum. Pacemaker wire was present in the right sided heart chambers. OVERALL IMPRESSION: 1. Decreased left ventricular ejection fraction of approximately 40% with some generalized hypokinesis but also possibly an area of akinesis along a portion of the interventricular septum. Definity contrast was used but the view was still very technically difficult. 2. Patient is in atrial flutter. No thrombi are noted but the left atrial appendage is not seen. 3. Mild left ventricular enlargement & mild asymmetric left ventricular thickening more along the posterior wall but no evidence for any outflow tract obstruction. 4. Moderate right ventricular enlargement. 5. A probable trileaflet aortic valve with a mild amount of aortic insufficiency with no aortic stenosis but some sclerosis. 6. Mild amount of mitral insufficiency & mild amount of pulmonic insufficiency & a mild amount of tricuspid insufficiency. The estimated right ventricular systolic pressures measured approximately 43mm Hg indicating mild to borderline moderate pulmonary hypertension & increased right ventricular systolic pressures. 7. Pacemaker is present in the right sided heart chambers. Dictated by: Sandra Ca M.D. on 10/31/2017 at 19:51 Transcribed by: BILL on 11/01/2017 at 13:52 Approved by: Sandra Ca M.D. on 11/01/2017 at 17:49 [facility]
== END 2017-11-01 11:40 | disposition home or self-care (01) | DRG 309 ==
LOC: ER 17:35 → MED 19:57
PROVIDERS: ADMIT Internal Medicine; ATTEND Internal Medicine
DX: I48.92 Unspecified atrial flutter (principal); N18.4 Chronic kidney disease, stage 4 (severe); I25.10 Atherosclerotic heart disease of native coronary artery without angina pectoris; E11.22 Type 2 diabetes mellitus with diabetic chronic kidney disease; I12.9 Hypertensive chronic kidney disease with stage 1 through stage 4 chronic kidney disease, or unspecified chronic kidney disease; I44.7 Left bundle-branch block, unspecified; I44.1 Atrioventricular block, second degree; M1A.9XX0 Chronic gout, unspecified, without tophus (tophi); E78.5 Hyperlipidemia, unspecified; K59.00 Constipation, unspecified; R53.1 Weakness; Z95.0 Presence of cardiac pacemaker; Z88.2 Allergy status to sulfonamides; Z87.891 Personal history of nicotine dependence; Z86.718 Personal history of other venous thrombosis and embolism; Z85.828 Personal history of other malignant neoplasm of skin; Z79.4 Long term (current) use of insulin
CPT/HCPCS: 36415; 36416; 71046; 82040; 82247; 82310; 82374; 82435; 82565; 82947; 82948; 83735; 84075; 84132; 84155; 84295; 84450; 84460; 84484; 84520; 85025; 85610; 85730; 93005; 99284; C8929; J1650; J1815; J7030; Q9957

== ENCOUNTER 2017-10-31 16:00 | Outpatient (RCR) | payer MEDICARE, BC ==
[2017-10-31 11:01] VITALS: BMI 26.9
[~2017-10-31 16:00] MED LIST changes: +INSU100I35 SQ
[2017-11-01] MEDS ORDERED: NIT4 SL (08:18)
[2017-11-01] MEDS ORDERED: INSU100I30 SQ (08:18)
[2017-11-01] MEDS ORDERED: SIMV-54 PO (08:18)
[2017-11-01] MEDS ORDERED: HYDR50TA35 PO (08:18)
[2017-11-01] MEDS ORDERED: FURO-45 PO (08:18)
[2017-11-01] MEDS ORDERED: CLOB15CR22 TP (08:18)
[2017-11-01] MEDS ORDERED: INSU100I35 SQ (08:18)
[2017-11-01] MEDS ORDERED: BENA40TA52 PO (08:18)
[2017-11-01] MEDS ORDERED: CAL25 FT (08:18)
[2017-11-01] MEDS ORDERED: METO25TA93 PO (10:49)
[2017-11-01] MEDS ORDERED: HYDR25TA66 PO (10:49)
[2017-11-01] MEDS ORDERED: WARF-1 PO (10:49)
[2017-11-01] MEDS ORDERED: ENOX40DI9 SQ (10:49)
--- NOTE | 2017-11-02 15:29 | Transitional Care Management ---
Assessment Visit Type: Telephone Visit Spoke with: Anthony and Veronica. Refused home visit despite questions about care Cardiac: WNL Cardiac Comment: 11/02 denies cp, sob, dizzyness. Has no way to check BP at home. Veronica states she can tell if hes not breathing. Respiratory: WNL Except Respiratory Comment: 11/02 reported he only wear O2 prn at hs. Enc to wear it at rest or for any sob, cp, dizzyness or confusion GI: Nutrition: WNL GI Comment: 11/02 eating well. Veronica states she does his BS qid and if he is acting "funny". Enc her to also place O2. Last bs 209 and 161. On [place] med list, insulin was stopped but Veronica states she is still giving them because he needs them. In [place] note MD indicates "he will resume his home insulin schedule" and confirm this with her. Constipation?: No Musculoskeletal, Exercise: WNL Except Musculoskeletal, Excercise Com: 11/02 less weakness and able to get around more Pain/Management: WNL Scheduled Follow-Up with [facility]: Yes (11/02 sees Jesse 11/14. Didn't know he needed INR on 11/03) Community Resources/HHC: 11/[address] Ewing to see him in [place] when he can. Personal Health Record Updated: No (11/02 enc to keep updated list for all providers) Questions for Future PCP Visit: 11/02 please review [facility] for discrepancies/duplications. INR due 11/03 and has only 2 lovenox inj prescribed at [place]. Has only 30 coumadin 5 mg tablets; will need refill. Need for O2 more than just "prn" Take ASA and Coumadin Needed or Pending Tests: Yes (INR due next 11/03) TCM Discharge Criteria Medication Knowledge: 11/[address] Ewing was consulted and his pharmacy for current med list and that he should be on chronic hydralazine and metoprolol. Asked why he had 30 coumadin and only 2 lovenox. Instructed about having INR on 11/03 to see if he is therapeutic or needs more inj.States he had shot today and is diabetic so is able to give shots. Disease Management/Concern/Wha: 11/02 s/s recurrent arrhythmia Transitional Care Comment: 10/31 He was admitted for chest pain with new onset A-flutter. He agrees to the program. We discussed chest pain, A-flutter (with handouts for both), and reviewed his home and hospital medications, with the rationales for the changes. 11/02 DC yesterday and states he had a hard time hearing instructions he was given. States he knows the heart rhythm can cause a clot but not about how the lovenox is bridging for the coumadin and the testing. Veronica states they have salads on Tue nights; enc to be consistent with vit K intake. Offered home visit due to his "need to get things straight" but he declined. Copies to: ERROL WRIGHT GENEVA E November 02, 2017 15:29
--- NOTE | 2017-11-03 14:28 | Transitional Care Management ---
Assessment Visit Type: Home Visit Spoke with: Pawel velásquez Veronica Cardiac: WNL Cardiac Comment: 11/02 denies cp, sob, dizzyness. Has no way to check BP at home. Veronica states she can tell if hes not breathing. 11/03 Veronica states there are meds that the training specialist/salesperson meats have ordered that she won't stop. Among them are lasix and nortriptyline that aren't on the hospitals list at all as ever having been taken. Enc to verify with Dr Molina at next visit today at 3:30. Respiratory: WNL Except Respiratory Comment: 11/02 reported he only wear O2 prn at hs. Enc to wear it at rest or for any sob, cp, dizzyness or confusion GI: Nutrition: WNL GI Comment: 11/02 eating well. Veronica states she does his BS qid and if he is acting "funny". Enc her to also place O2. Last bs 209 and 161. On [place] med list, insulin was stopped but Veronica states she is still giving them because he needs them. In [place] note MD indicates "he will resume his home insulin schedule" and confirm this with her. 11/03 His insulin is listed under continued medications and not to be stopped as they noted under the listing of "stop". Veronica states she has to enc him to let her do BG qid and she has to remind him to do insulin. He stated he takes 27 and 29 and 39 units on different occasions. Instruct that dc MD ordered 35 units at hs. They keep record of BS and the amount of insulin they are giving Constipation?: No : WNL Except Comment: 11/03 reports he takes lasix q hs and that he gets up multiple times to urinate. Instruct on lasix is water pill and enc him to take in am and he agrees. Musculoskeletal, Exercise: WNL Except Musculoskeletal, Excercise Com: 11/02 less weakness and able to get around more 11/03 states he fell the other night because he wasn't using his walker. States he will use it consistently at his wifes insistence Integumentary: WNL Except Integumentary Comment: 11/03 seeing Mona today to remove a skin lesion on his nose Pain/Management: WNL Scheduled Follow-Up with [facility]: Yes (11/02 sees Jesse 11/14. Didn't know he needed INR on 11/03) Community Resources/[facility]: 11/[address] Ewing to see him in [place] when he can. 11/03 has appt with Jesse to have INR today at 3:30 Personal Health Record Updated: No (11/02 enc to keep updated list for all providers) Questions for Future PCP Visit: 11/02 please review [facility] for discrepancies/duplications. INR due 11/03 and has only 2 lovenox inj prescribed at pr. Has only 30 coumadin 5 mg tablets; will need refill. Need for O2 more than just "prn" Take ASA and Coumadin Pt does not recall what any of his medications are for and his is not sure because there are so many. Up to date medication list not provided at [facility] and discharge list is not complete. Please review Needed or Pending Tests: Yes (INR due next 11/03) TCM Discharge Criteria Medication Knowledge: 11/[address] Ewing was consulted and his pharmacy for current med list and that he should be on chronic hydralazine and metoprolol. Asked why he had 30 coumadin and only 2 lovenox. Instructed about having INR on 11/03 to see if he is therapeutic or needs more inj.States he had shot today and is diabetic so is able to give shots. 11/03 he has hydralazine on his dc list 3 times. RN visit home to confirm he is not taking 2 old doses plus new RX given at pr. Continued medications at discharge have not been filled for 5 mos or more and RN confirmed he has current RX at home. Enc them to keep current list with them at all times to show all providers to avoid confusion and error Disease Management/Concern/Wha: 11/02 s/s recurrent arrhythmia Transitional Care Comment: 10/31 He was admitted for chest pain with new onset A-flutter. He agrees to the program. We discussed chest pain, A-flutter (with handouts for both), and reviewed his home and hospital medications, with the rationales for the changes. 11/02 DC yesterday and states he had a hard time hearing instructions he was given. States he knows the heart rhythm can cause a clot but not about how the lovenox is bridging for the coumadin and the testing. Veronica states they have salads on Tue nights; enc to be consistent with vit K intake. Offered home visit due to his "need to get things straight" but he declined. 11/03 Agreed to home visit because he didn't know about his medications. Spent over an hour reviewing his hospital dc med list, home med list and actual medications. Suggest he take his lasix in am to avoid diuresis nocturnally and add to increased fall risk and he agreed. States they will confirm medications on their most current list at home with MD at next visit. Getting INR today DAWIT COLLINS November 03, 2017 14:28
--- NOTE | 2017-11-11 13:16 | Transitional Care Management ---
Assessment Visit Type: Telephone Visit Cardiac: WNL Cardiac Comment: 11/02 denies cp, sob, dizzyness. Has no way to check BP at home. Veronica states she can tell if hes not breathing. 11/03 Veronica states there are meds that the body service team member/tin stacker have ordered that she won't stop. Among them are lasix and nortriptyline that aren't on the hospitals list at all as ever having been taken. Enc to verify with Dr Molina at next visit today at 3:30. 11/11 deneis CP or SOB or dizzyness. Reminded if he has to take ntg again to also put O2 on. Respiratory: WNL Except Respiratory Comment: 11/02 reported he only wear O2 prn at hs. Enc to wear it at rest or for any sob, cp, dizzyness or confusion GI: Nutrition: WNL GI Comment: 11/02 eating well. Veronica states she does his BS qid and if he is acting "funny". Enc her to also place O2. Last bs 209 and 161. On DC med list, insulin was stopped but Veronica states she is still giving them because he needs them. In DC note MD indicates "he will resume his home insulin schedule" and confirm this with her. 11/03 His insulin is listed under continued medications and not to be stopped as they noted under the listing of "stop". Veronica states she has to enc him to let her do BG qid and she has to remind him to do insulin. He stated he takes 27 and 29 and 39 units on different occasions. Instruct that dc MD ordered 35 units at hs. They keep record of BS and the amount of insulin they are giving 11/11 Enc to take BS log to next MD visit Constipation?: No : WNL Except Comment: 11/03 reports he takes lasix q hs and that he gets up multiple times to urinate. Instruct on lasix is water pill and enc him to take in am and he agrees. Musculoskeletal, Exercise: WNL Except Musculoskeletal, Excercise Com: 11/02 less weakness and able to get around more 11/03 states he fell the other night because he wasn't using his walker. States he will use it consistently at his wifes insistence Integumentary: WNL Except Integumentary Comment: 11/03 seeing Nachtigal today to remove a skin lesion on his nose Pain/Management: WNL Scheduled Follow-Up with [facility]: Yes (11/02 sees Jesse 11/14. Didn't know he needed INR on 11/03) Community Resources/C: 11/[address] Ewing to see him in [place] when he can. 11/03 has appt with Jesse to have INR today at 3:30 11/11 Pt then told me they saw Jesse last , then Tue then Tuesday and unable to remember. When one cant remember they aask the other. State he has appt 11/15 with Jesse. Enc to take med list to all medical visits. Cant remember if they called or have appt to see Gildardo; enc to call his office to make or confirm an appt Personal Health Record Updated: No (11/02 enc to keep updated list for all providers) Questions for Future PCP Visit: 11/02 please review [facility] for discrepancies/duplications. INR due 11/03 and has only 2 lovenox inj prescribed at [facility]. Has only 30 coumadin 5 mg tablets; will need refill. Need for O2 more than just "prn" Take ASA and Coumadin Pt does not recall what any of his medications are for and his is not sure because there are so many. Up to date medication list not provided at [facility] and discharge list is not complete. Please review Needed or Pending Tests: Yes (INR due next 11/03) TCM Discharge Criteria Medication Knowledge: 11/[address] Ewing was consulted and his pharmacy for current med list and that he should be on chronic hydralazine and metoprolol. Asked why he had 30 coumadin and only 2 lovenox. Instructed about having INR on 11/03 to see if he is therapeutic or needs more inj.States he had shot today and is diabetic so is able to give shots. 11/03 he has hydralazine on his dc list 3 times. RN visit home to confirm he is not taking 2 old doses plus new RX given at [facility]. Continued medications at discharge have not been filled for 5 mos or more and RN confirmed he has current RX at home. Enc them to keep current list with them at all times to show all providers to avoid confusion and error 11/11 Cant remember if he took insulin last pm after went to bed. Asked if he was taking coumadin and he stated "No'; found the bottle and he is taking warfarin 5mg. He cant remember when next visit with Jesse evelin and handed the phone to his who states the . Disease Management/Concern/Wha: 11/02 s/s recurrent arrhythmia Transitional Care Comment: 10/31 He was admitted for chest pain with new onset A-flutter. He agrees to the program. We discussed chest pain, A-flutter (with handouts for both), and reviewed his home and hospital medications, with the rationales for the changes. 11/02 DC yesterday and states he had a hard time hearing instructions he was given. States he knows the heart rhythm can cause a clot but not about how the lovenox is bridging for the coumadin and the testing. Veronica states they have salads on Tue nights; enc to be consistent with vit K intake. Offered home visit due to his "need to get things straight" but he declined. 11/03 Agreed to home visit because he didn't know about his medications. Spent over an hour reviewing his hospital dc med list, home med list and actual medications. Suggest he take his lasix in am to avoid diuresis nocturnally and add to increased fall risk and he agreed. States they will confirm medications on their most current list at home with MD at next visit. Getting INR today 11/11 Both he and his have a poor memory. Enc to keep everything in the log book and to keep med list updated and with them to avoid any confusioin DAWIT COLLINS November 11, 2017 13:16
--- NOTE | 2017-11-17 13:03 | Transitional Care Management ---
Assessment Visit Type: Telephone Visit (11/17 Mr Azul) Cardiac: WNL Cardiac Comment: 11/02 denies cp, sob, dizzyness. Has no way to check BP at home. Veronica states she can tell if hes not breathing. 11/03 Veronica states there are meds that the video game programmer/manager implementation have ordered that she won't stop. Among them are lasix and nortriptyline that aren't on the hospitals list at all as ever having been taken. Enc to verify with Dr Wright at next visit today at 3:30. 11/11 deneis CP or SOB or dizzyness. Reminded if he has to take ntg again to also put O2 on. 11/17 Denies any CP. Denies any use of Nitro. "I use the O2 at night as I see it helps me. If I feel SOB in the daytime I put it on but have only done that a couple of times." Respiratory: WNL Except Respiratory Comment: 11/02 reported he only wear O2 prn at hs. Enc to wear it at rest or for any sob, cp, dizzyness or confusion GI: Nutrition: WNL GI Comment: 11/02 eating well. Veronica states she does his BS qid and if he is acting "funny". Enc her to also place O2. Last bs 209 and 161. On DC med list, insulin was stopped but Veronica states she is still giving them because he needs them. In DC note MD indicates "he will resume his home insulin schedule" and confirm this with her. 11/03 His insulin is listed under continued medications and not to be stopped as they noted under the listing of "stop". Veronica states she has to enc him to let her do BG qid and she has to remind him to do insulin. He stated he takes 27 and 29 and 39 units on different occasions. Instruct that dc MD ordered 35 units at hs. They keep record of BS and the amount of insulin they are giving 11/11 Enc to take BS log to next MD visit 11/17 doing BS three times a day. "Took log with me on Tuesday and Jesse was pleased with the sugars" Constipation?: No : WNL Except Comment: 11/03 reports he takes lasix q hs and that he gets up multiple times to urinate. Instruct on lasix is water pill and enc him to take in am and he agrees. 11/17 taking Lasix in AM and "Unbebelievable homw how much that helped my sleeping!" Musculoskeletal, Exercise: WNL Except Musculoskeletal, Excercise Com: 11/02 less weakness and able to get around more 11/03 states he fell the other night because he wasn't using his walker. States he will use it consistently at his wifes insistence 11/17 uses walker all the time which helps him get around better and denies any more falls Integumentary: WNL Except Integumentary Comment: 11/03 seeing Mona today to remove a skin lesion on his nose Pain/Management: WNL Scheduled Follow-Up with [facility]: Yes (11/02 sees Jesse 11/14. Didn't know he needed INR on 11/03. 11/17 to see Jesse on11/22) Community Resources/HHC: 11/[address] Ewing to see him in [place] when he can. 11/03 has appt with Jesse to have INR today at 3:30 11/11 Pt then told me they saw Jesse last , then Tue then Tuesday and unable to remember. When one cant remember they aask the other. State he has appt 11/15 with Jesse. Enc to take med list to all medical visits. Cant remember if they called or have appt to see Gildardo; enc to call his office to make or confirm an appt Personal Health Record Updated: No (11/02 enc to keep updated list for all providers) Questions for Future PCP Visit: 11/02 please review med [facility] for discrepancies/duplications. INR due 11/03 and has only 2 lovenox inj prescribed at [place]. Has only 30 coumadin 5 mg tablets; will need refill. Need for O2 more than just "prn" Take ASA and Coumadin Pt does not recall what any of his medications are for and his is not sure because there are so many. Up to date medication list not provided at [facility] and discharge list is not complete. Please review Needed or Pending Tests: Yes (INR due next 11/03) TCM Discharge Criteria Medication Knowledge: 11/[address] Ewing was consulted and his pharmacy for current med list and that he should be on chronic hydralazine and metoprolol. Asked why he had 30 coumadin and only 2 lovenox. Instructed about having INR on 11/03 to see if he is therapeutic or needs more inj.States he had shot today and is diabetic so is able to give shots. 11/03 he has hydralazine on his dc list 3 times. RN visit home to confirm he is not taking 2 old doses plus new RX given at dc. Continued medications at discharge have not been filled for 5 mos or more and RN confirmed he has current RX at home. Enc them to keep current list with them at all times to show all providers to avoid confusion and error 11/11 Cant remember if he took insulin last pm after went to bed. Asked if he was taking coumadin and he stated "No'; found the bottle and he is taking warfarin 5mg. He cant remember when next visit with Jesse is and handed the phone to his who states the . 11/17 "My isn't home and she gives my meds. I'm trying to gey better with names and what they are for!" We went through the list I have and he could pretty much tell me what they were for. Disease Management/Concern/Wha: 11/02 s/s recurrent arrhythmia Red/Yellow Flags: 11/17 went over the red and yellow flags Of A flutter and his diabetes-Hypo/Hyperglycemic. Transitional Care Comment: 10/31 He was admitted for chest pain with new onset A-flutter. He agrees to the program. We discussed chest pain, A-flutter (with handouts for both), and reviewed his home and hospital medications, with the rationales for the changes. 11/02 DC yesterday and states he had a hard time hearing instructions he was given. States he knows the heart rhythm can cause a clot but not about how the lovenox is bridging for the coumadin and the testing. Veronica states they have salads on Tue nights; enc to be consistent with vit K intake. Offered home visit due to his "need to get things straight" but he declined. 11/03 Agreed to home visit because he didn't know about his medications. Spent over an hour reviewing his hospital dc med list, home med list and actual medications. Suggest he take his lasix in am to avoid diuresis nocturnally and add to increased fall risk and he agreed. States they will confirm medications on their most current list at home with MD at next visit. Getting INR today 11/11 Both he and his have a poor memory. Enc to keep everything in the log book and to keep med list updated and with them to avoid any confusioin 11/17 Mr Azul seemed to do pretty today with his recall of seeing Dr Wright and when his next appt is -11/22 plus we went over the meds. Copies to: ERROL WRIGHT JOAN November 17, 2017 13:03
--- NOTE | 2017-11-24 15:16 | Transitional Care Management ---
Assessment Visit Type: Telephone Visit Spoke with: Pawel Cardiac: WNL Cardiac Comment: 11/02 denies cp, sob, dizzyness. Has no way to check BP at home. Veronica states she can tell if hes not breathing. 11/03 Veronica states there are meds that the log stacker operator/supervisory forester have ordered that she won't stop. Among them are lasix and nortriptyline that aren't on the hospitals list at all as ever having been taken. Enc to verify with Dr Wright at next visit today at 3:30. 11/11 deneis CP or SOB or dizzyness. Reminded if he has to take ntg again to also put O2 on. 11/17 Denies any CP. Denies any use of Nitro. "I use the O2 at night as I see it helps me. If I feel SOB in the daytime I put it on but have only done that a couple of times." 11/24 Denies CP. Lasix continues. Respiratory: WNL Except Respiratory Comment: 11/02 reported he only wear O2 prn at hs. Enc to wear it at rest or for any sob, cp, dizzyness or confusion 11/24 Has O2 if needed, but is not wearing it at all anymore. GI: Nutrition: WNL GI Comment: 11/02 eating well. Veronica states she does his BS qid and if he is acting "funny". Enc her to also place O2. Last bs 209 and 161. On DC med list, insulin was stopped but Veronica states she is still giving them because he needs them. In DC note MD indicates "he will resume his home insulin schedule" and confirm this with her. 11/03 His insulin is listed under continued medications and not to be stopped as they noted under the listing of "stop". Veronica states she has to enc him to let her do BG qid and she has to remind him to do insulin. He stated he takes 27 and 29 and 39 units on different occasions. Instruct that dc MD ordered 35 units at hs. They keep record of BS and the amount of insulin they are giving 11/11 Enc to take BS log to next MD visit 11/17 doing BS three times a day. "Took log with me on Tuesday and Jesse was pleased with the sugars" Constipation?: No : WNL Except Comment: 11/03 reports he takes lasix q hs and that he gets up multiple times to urinate. Instruct on lasix is water pill and enc him to take in am and he agrees. 11/17 taking Lasix in AM and "Unbebelievable homw how much that helped my sleeping!" Musculoskeletal, Exercise: WNL Except Musculoskeletal, Excercise Com: 11/02 less weakness and able to get around more 11/03 states he fell the other night because he wasn't using his walker. States he will use it consistently at his wifes insistence 11/17 uses walker all the time which helps him get around better and denies any more falls 11/24 No falls, feeling stronger. Mobility Comment: 11/24 Using a walker. Goes for walks outside, around the block. Integumentary: WNL Except Integumentary Comment: 11/03 seeing Jerrytigal today to remove a skin lesion on his nose Feeling of Well Being: WNL Feeling of Well Being Comment: 11/24 "not full throttle yet, but getting better." Socialization: WNL Socialization Comment: 11/24 Lives at home with his . Pain/Management: WNL Community Resources/[facility]: 11/[address] Ewing to see him in [place] when he can. 11/03 has appt with Jesse to have INR today at 3:30 11/11 Pt then told me they saw Jesse last , then Tue then Tuesday and unable to remember. When one cant remember they aask the other. State he has appt 11/15 with Jesse. Enc to take med list to all medical visits. Cant remember if they called or have appt to see Gildardo; enc to call his office to make or confirm an appt Personal Health Record Updated: No (11/02 enc to keep updated list for all providers) Questions for Future PCP Visit: 11/02 please review med [facility] for discrepancies/duplications. INR due 11/03 and [place] only 2 lovenox inj [place]. Has only 30 coumadin 5 mg tablets; will need refill. Need for O2 more than just "prn" Take ASA and Coumadin Pt does not recall what any of his medications are for and his is not sure because there are so many. Up to date medication list not provided at [facility] and discharge list is not complete. Please review Following Discharge Instructio: Yes TCM Discharge Criteria Medication Knowledge: 11/[address] Ewing was consulted and his pharmacy for current med list and that he should be on chronic hydralazine and metoprolol. Asked why he had 30 coumadin and only 2 lovenox. Instructed about having INR on 11/03 to see if he is therapeutic or needs more inj.States he had shot today and is diabetic so is able to give shots. 11/03 he has hydralazine on his dc list 3 times. RN visit home to confirm he is not taking 2 old doses plus new RX given at dc. Continued medications at discharge have not been filled for 5 mos or more and RN confirmed he has current RX at home. Enc them to keep current list with them at all times to show all providers to avoid confusion and error 11/11 Cant remember if he took insulin last pm after went to bed. Asked if he was taking coumadin and he stated "No'; found the bottle and he is taking warfarin 5mg. He cant remember when next visit with Jesse is and handed the phone to his who states the . 11/17 "My isn't home and she gives my meds. I'm trying to gey better with names and what they are for!" We went through the list I have and he could pretty much tell me what they were for. Disease Management/Concern/Wha: 11/02 s/s recurrent arrhythmia Red/Yellow Flags: 11/17 went over the red and yellow flags Of A flutter and his diabetes-Hypo/Hyperglycemic. Transitional Care Comment: 10/31 He was admitted for chest pain with new onset A-flutter. He agrees to the program. We discussed chest pain, A-flutter (with handouts for both), and reviewed his home and hospital medications, with the rationales for the changes. 11/02 DC yesterday and states he had a hard time hearing instructions he was given. States he knows the heart rhythm can cause a clot but not about how the lovenox is bridging for the coumadin and the testing. Veronica states they have salads on Tue nights; enc to be consistent with vit K intake. Offered home visit due to his "need to get things straight" but he declined. 11/03 Agreed to home visit because he didn't know about his medications. Spent over an hour reviewing his hospital dc med list, home med list and actual medications. Suggest he take his lasix in am to avoid diuresis nocturnally and add to increased fall risk and he agreed. States they will confirm medications on their most current list at home with MD at next visit. Getting INR today 11/11 Both he and his have a poor memory. Enc to keep everything in the log book and to keep med list updated and with them to avoid any confusioin 11/17 Mr Azul seemed to do pretty today with his recall of seeing Dr Wright and when his next appt is -11/22 plus we went over the meds. 11/24 Jesse decreased his O2 to PRN, no adjustments to his warfarin, INR stable. Pawel is feeling good, getting outside. S/S of hypoxia reviewed. Copies to: ERROL WRIGHT MICHAEL K November 24, 2017 15:15
--- NOTE | 2017-12-06 13:14 | Transitional Care Management ---
Assessment Cardiac: WNL Cardiac Comment: 11/02 denies cp, sob, dizzyness. Has no way to check BP at home. Veronica states she can tell if hes not breathing. 11/03 Veronica states there are meds that the documentation consultant/script artist have ordered that she won't stop. Among them are lasix and nortriptyline that aren't on the hospitals list at all as ever having been taken. Enc to verify with Dr Molina at next visit today at 3:30. 11/11 deneis CP or SOB or dizzyness. Reminded if he has to take ntg again to also put O2 on. 11/17 Denies any CP. Denies any use of Nitro. "I use the O2 at night as I see it helps me. If I feel SOB in the daytime I put it on but have only done that a couple of times." 11/24 Denies CP. Lasix continues. Respiratory: WNL Except Respiratory Comment: 11/02 reported he only wear O2 prn at hs. Enc to wear it at rest or for any sob, cp, dizzyness or confusion 11/24 Has O2 if needed, but is not wearing it at all anymore. GI: Nutrition: WNL GI Comment: 11/02 eating well. Veronica states she does his BS qid and if he is acting "funny". Enc her to also place O2. Last bs 209 and 161. On DC med list, insulin was stopped but Veronica states she is still giving them because he needs them. In DC note MD indicates "he will resume his home insulin schedule" and confirm this with her. 11/03 His insulin is listed under continued medications and not to be stopped as they noted under the listing of "stop". Veronica states she has to enc him to let her do BG qid and she has to remind him to do insulin. He stated he takes 27 and 29 and 39 units on different occasions. Instruct that dc MD ordered 35 units at hs. They keep record of BS and the amount of insulin they are giving 11/11 Enc to take BS log to next MD visit 11/17 doing BS three times a day. "Took log with me on Tuesday and Jesse was pleased with the sugars" Constipation?: No : WNL Except Comment: 11/03 reports he takes lasix q hs and that he gets up multiple times to urinate. Instruct on lasix is water pill and enc him to take in am and he agrees. 11/17 taking Lasix in AM and "Unbebelievable homw how much that helped my sleeping!" Musculoskeletal, Exercise: WNL Except Musculoskeletal, Excercise Com: 11/02 less weakness and able to get around more 11/03 states he fell the other night because he wasn't using his walker. States he will use it consistently at his wifes insistence 11/17 uses walker all the time which helps him get around better and denies any more falls 11/24 No falls, feeling stronger. Mobility Comment: 11/24 Using a walker. Goes for walks outside, around the block. Integumentary: WNL Except Integumentary Comment: 11/03 seeing Lenoraal today to remove a skin lesion on his nose Feeling of Well Being: WNL Feeling of Well Being Comment: 11/24 "not full throttle yet, but getting better." Socialization: WN Socialization Comment: 11/24 Lives at home with his . Pain/Management: WNL Community Resources/HHC: 11/[address] Ewing to see him in [place] when he can. 11/03 has appt with Jesse to have INR today at 3:30 11/11 Pt then told me they saw Jesse last , then Tue then Tuesday and unable to remember. When one cant remember they aask the other. State he has appt 11/15 with Jesse. Enc to take med list to all medical visits. Cant remember if they called or have appt to see Gildardo; enc to call his office to make or confirm an appt Personal Health Record Updated: No (11/02 enc to keep updated list for all providers) Questions for Future PCP Visit: 11/02 please review med [facility] for discrepancies/duplications. INR due 11/03 and has only 2 lovenox inj prescribed at [place]. Has only 30 coumadin 5 mg tablets; will need refill. Need for O2 more than just "prn" Take ASA and Coumadin Pt does not recall what any of his medications are for and his is not sure because there are so many. Up to date [facility] and discharge list is not complete. Please review Following Discharge Instructio: Yes TCM Discharge Criteria Medication Knowledge: 11/[address] Ewing was consulted and his pharmacy for current med list and that he should be on chronic hydralazine and metoprolol. Asked why he had 30 coumadin and only 2 lovenox. Instructed about having INR on 11/03 to see if he is therapeutic or needs more inj.States he had shot today and is diabetic so is able to give shots. 11/03 he has hydralazine on his dc list 3 times. RN visit home to confirm he is not taking 2 old doses plus new RX given at dc. Continued medications at discharge have not been filled for 5 mos or more and RN confirmed he has current RX at home. Enc them to keep current list with them at all times to show all providers to avoid confusion and error 11/11 Cant remember if he took insulin last pm after went to bed. Asked if he was taking coumadin and he stated "No'; found the bottle and he is taking warfarin 5mg. He cant remember when next visit with Jesse is and handed the phone to his who states the . 11/17 "My isn't home and she gives my meds. I'm trying to gey better with names and what they are for!" We went through the list I have and he could pretty much tell me what they were for. Disease Management/Concern/Wha: 11/02 s/s recurrent arrhythmia Red/Yellow Flags: 11/17 went over the red and yellow flags Of A flutter and his diabetes-Hypo/Hyperglycemic. Transitional Care Comment: 10/31 He was admitted for chest pain with new onset A-flutter. He agrees to the program. We discussed chest pain, A-flutter (with handouts for both), and reviewed his home and hospital medications, with the rationales for the changes. 11/02 DC yesterday and states he had a hard time hearing instructions he was given. States he knows the heart rhythm can cause a clot but not about how the lovenox is bridging for the coumadin and the testing. Veronica states they have salads on Tue nights; enc to be consistent with vit K intake. Offered home visit due to his "need to get things straight" but he declined. 11/03 Agreed to home visit because he didn't know about his medications. Spent over an hour reviewing his hospital dc med list, home med list and actual medications. Suggest he take his lasix in am to avoid diuresis nocturnally and add to increased fall risk and he agreed. States they will confirm medications on their most current list at home with MD at next visit. Getting INR today 11/11 Both he and his have a poor memory. Enc to keep everything in the log book and to keep med list updated and with them to avoid any confusioin 11/17 Mr Azul seemed to do pretty today with his recall of seeing Dr Molina and when his next appt is -11/22 plus we went over the meds. 11/24 Jesse decreased his O2 to PRN, no adjustments to his warfarin, INR stable. Pawel is feeling good, getting outside. S/S of hypoxia reviewed. 11/30 Unable to visit at this time-requested call back tomorrow. 12/01 Left message. 12/06 left message. NADEGE DIOP Dec 06, 2017 13:14
--- NOTE | 2017-12-07 11:55 | Transitional Care Management ---
Assessment Cardiac: WNL Cardiac Comment: 11/02 denies cp, sob, dizzyness. Has no way to check BP at home. Veronica states she can tell if hes not breathing. 11/03 Veronica states there are meds that the buffing wheel raker/paper plate machine tender have ordered that she won't stop. Among them are lasix and nortriptyline that aren't on the hospitals list at all as ever having been taken. Enc to verify with Dr Wright at next visit today at 3:30. 11/11 deneis CP or SOB or dizzyness. Reminded if he has to take ntg again to also put O2 on. 11/17 Denies any CP. Denies any use of Nitro. "I use the O2 at night as I see it helps me. If I feel SOB in the daytime I put it on but have only done that a couple of times." 11/24 Denies CP. Lasix continues. Respiratory: WNL Except Respiratory Comment: 11/02 reported he only wear O2 prn at hs. Enc to wear it at rest or for any sob, cp, dizzyness or confusion 11/24 Has O2 if needed, but is not wearing it at all anymore. GI: Nutrition: WNL GI Comment: 11/02 eating well. Veronica states she does his BS qid and if he is acting "funny". Enc her to also place O2. Last bs 209 and 161. On DC med list, insulin was stopped but Veronica states she is still giving them because he needs them. In DC note MD indicates "he will resume his home insulin schedule" and confirm this with her. 11/03 His insulin is listed under continued medications and not to be stopped as they noted under the listing of "stop". Veronica states she has to enc him to let her do BG qid and she has to remind him to do insulin. He stated he takes 27 and 29 and 39 units on different occasions. Instruct that dc MD ordered 35 units at hs. They keep record of BS and the amount of insulin they are giving 11/11 Enc to take BS log to next MD visit 11/17 doing BS three times a day. "Took log with me on Tuesday and Jesse was pleased with the sugars" Constipation?: No : WNL Except Comment: 11/03 reports he takes lasix q hs and that he gets up multiple times to urinate. Instruct on lasix is water pill and enc him to take in am and he agrees. 11/17 taking Lasix in AM and "Unbebelievable homw how much that helped my sleeping!" Musculoskeletal, Exercise: WNL Except Musculoskeletal, Excercise Com: 11/02 less weakness and able to get around more 11/03 states he fell the other night because he wasn't using his walker. States he will use it consistently at his wifes insistence 11/17 uses walker all the time which helps him get around better and denies any more falls 11/24 No falls, feeling stronger. Mobility Comment: 11/24 Using a walker. Goes for walks outside, around the block. Integumentary: WNL Except Integumentary Comment: 11/03 seeing Lenoraal today to remove a skin lesion on his nose Feeling of Well Being: WNL Feeling of Well Being Comment: 11/24 "not full throttle yet, but getting better." Socialization: WN Socialization Comment: 11/24 Lives at home with his . Pain/Management: WNL Community Resources/HHC: 11/[address] Ewing to see him in [place] when he can. 11/03 has appt with Jesse to have INR today at 3:30 11/11 Pt then told me they saw Jesse last , then Tue then Tuesday and unable to remember. When one cant remember they aask the other. State he has appt 11/15 with Jesse. Enc to take med list to all medical visits. Cant remember if they called or have appt to see Gildardo; enc to call his office to make or confirm an appt Personal Health Record Updated: No (11/02 enc to keep updated list for all providers) Questions for Future PCP Visit: 11/02 please review med [facility] for discrepancies/duplications. INR due 11/03 and has only 2 lovenox inj prescribed at [facility]. Has only 30 coumadin 5 mg tablets; will need refill. Need for O2 more than just "prn" Take ASA and Coumadin Pt does not recall what any of his medications are for and his is not sure because there are so many. Up to date medication list not provided at [facility] and discharge list is not complete. Please review Following Discharge Instructio: Yes TCM Discharge Criteria Medication Knowledge: 11/[address] Ewing was consulted and his pharmacy for current med list and that he should be on chronic hydralazine and metoprolol. Asked why he had 30 coumadin and only 2 lovenox. Instructed about having INR on 11/03 to see if he is therapeutic or needs more inj.States he had shot today and is diabetic so is able to give shots. 11/03 he has hydralazine on his dc list 3 times. RN visit home to confirm he is not taking 2 old doses plus new RX given at dc. Continued medications at discharge have not been filled for 5 mos or more and RN confirmed he has current RX at home. Enc them to keep current list with them at all times to show all providers to avoid confusion and error 11/11 Cant remember if he took insulin last pm after went to bed. Asked if he was taking coumadin and he stated "No'; found the bottle and he is taking warfarin 5mg. He cant remember when next visit with Jesse is and handed the phone to his who states the . 11/17 "My isn't home and she gives my meds. I'm trying to gey better with names and what they are for!" We went through the list I have and he could pretty much tell me what they were for. Disease Management/Concern/Wha: 11/02 s/s recurrent arrhythmia Red/Yellow Flags: 11/17 went over the red and yellow flags Of A flutter and his diabetes-Hypo/Hyperglycemic. Transitional Care Comment: 10/31 He was admitted for chest pain with new onset A-flutter. He agrees to the program. We discussed chest pain, A-flutter (with handouts for both), and reviewed his home and hospital medications, with the rationales for the changes. 11/02 DC yesterday and states he had a hard time hearing instructions he was given. States he knows the heart rhythm can cause a clot but not about how the lovenox is bridging for the coumadin and the testing. Veronica states they have salads on Tue nights; enc to be consistent with vit K intake. Offered home visit due to his "need to get things straight" but he declined. 11/03 Agreed to home visit because he didn't know about his medications. Spent over an hour reviewing his hospital dc med list, home med list and actual medications. Suggest he take his lasix in am to avoid diuresis nocturnally and add to increased fall risk and he agreed. States they will confirm medications on their most current list at home with MD at next visit. Getting INR today 11/11 Both he and his have a poor memory. Enc to keep everything in the log book and to keep med list updated and with them to avoid any confusioin 11/17 Mr Azul seemed to do pretty today with his recall of seeing Dr Wright and when his next appt is -11/22 plus we went over the meds. 11/24 Jesse decreased his O2 to PRN, no adjustments to his warfarin, INR stable. Pawel is feeling good, getting outside. S/S of hypoxia reviewed. 11/30 Unable to visit at this time-requested call back tomorrow. 12/01 Left message. 12/06 left message. 12/07 unable to contact. Left message but will DC from program D/T unable to contact. Copies to: ERROL WRIGHT JOAN Dec 07, 2017 11:55
== END 2017-12-07 12:45 | disposition home or self-care (01) ==
LOC: TCM 16:00
PROVIDERS: ATTEND Nurse Practitioner
DX: Z02.9 Encounter for administrative examinations, unspecified (principal)

== ENCOUNTER 2017-11-07 02:06 | Emergency (ER) | payer MEDICARE, BC ==
[2017-10-31 11:01] VITALS: Wt 90.0 kg
--- NOTE | 2017-11-07 02:08 | ER Report ---
History and Physical Time Seen By MD: 02:08 HPI/ROS CHIEF COMPLAINT: Chest pain 1 hour HISTORY OF PRESENT ILLNESS: 81-year-old male who was just admitted here for new onset atrial fibrillation approximately one week ago. He woke up with chest pain this morning. Patient received one sublingual nitroglycerin with improvement of his pain. Patient was complaining of a headache behind his right ear which woke him from sleep. Patient notes no nausea, no shortness of breath, no fever or chills. REVIEW OF SYSTEMS: Respiratory: No cough, no dyspnea. Cardiovascular: As above Gastrointestinal: No vomiting, no abdominal pain. Musculoskeletal: No back pain. Allergies: Coded Allergies: Sulfa (Sulfonamide Antibiotics) (Unverified Allergy, Mild, RASH, 11/07/17) Home Meds Active Scripts Enoxaparin Sodium (ENOXAPARIN SODIUM) 40 Mg/0.4 Ml Disp.syrin, 40 MG SQ DAILY, # 2 SYR Prov:TAURUS ODOM DO 11/01/17 Warfarin Sodium (COUMADIN) 5 Mg Tablet, 5 MG PO QDAY@13, #30 TAB Prov:TAURUS ODOM DO 11/01/17 Aspirin (ASPIRIN) 81 Mg Tab.chew, 81 MG PO QDAY, #30 TAB.CHEW 10 Refills Prov:JENN PARKINSON MD FACP 08/30/15 Reported Medications Insulin Aspart 100 Un/Ml Pen (NOVOLOG FLEXPEN) 100 Unit/1 Ml Insuln.pen, 4 UNIT SQ TID, ML 11/01/17 Nitroglycerin (NITROSTAT) 0.4 Mg Subl, 0.4 MG SL Q5MIN 11/01/17 Clobetasol Propionate/Emoll (CLOBETASOL EMOLLIENT 0.05% CRM) 15 Gm Cream..g., 0 TP BID 11/01/17 Calcitriol (CALCITRIOL) 0.25 Mcg Cap, 0.25 MCG FT 5 times a week, CAP 11/01/17 Benazepril Hcl (BENAZEPRIL HCL) 40 Mg Tablet, 40 MG PO BID, TAB 11/01/17 Insulin Glargine,Hum.rec.anlog (Basaglar Kwikpen U-100) 100 Unit/Ml (3 Ml) Insuln.pen, 35 QHS 10/30/17 Metoprolol Succinate (TOPROL XL) 100 Mg Tab.er.24h, 1 TAB PO QDAY, TAB 08/13/16 Hydralazine Hcl (HYDRALAZINE HCL) 50 Mg Tablet, 50 MG PO BID, TAB 08/13/16 Acetaminophen (TYLENOL) 325 Mg Tablet, 325 MG PO PRN, TAB 08/11/16 Famotidine (FAMOTIDINE) 20 Mg Tablet, 20 MG PO QDAY, TAB 06/08/16 Oxygen (OXYGEN) 2 L Inha, 2 L INH HS Y for SEE COMMENT, L 12/06/14 Discontinued Reported Medications Hydralazine Hcl (HYDRALAZINE HCL) 50 Mg Tablet, 50 MG PO TID, TAB 11/01/17 Simvastatin (SIMVASTATIN) 40 Mg Tablet, 40 MG PO HS, TAB 11/01/17 Insulin Glargine 100 Un/Ml Pen (LANTUS SOLOSTAR PEN) 100 Unit/1 Ml Insuln.pen, 27 UNIT SQ DAILY, ML 11/01/17 Furosemide (FUROSEMIDE) 20 Mg Tablet, 1 TAB PO DAILY, TAB 11/01/17 Insulin Aspart 100 Un/Ml Pen (NOVOLOG FLEXPEN) 100 Unit/1 Ml Insuln.pen, 100 UNIT SQ, ML 10/30/17 Tramadol Hcl (TRAMADOL HCL) 50 Mg Tablet, 1 TAB PO Q4H Y for PAIN, TAB 08/13/16 Triamcinolone Acet (KENALOG 0.1% CREAM (OR EQUIV)) 15 Gm Cr, 1 SAMARA TOP BID Y for ITCHING 08/08/12 Doxazosin Mesylate (Cardura) 8 Mg Tablet, 8 MG PO HS 08/08/12 Discontinued Scripts Hydralazine Hcl (HYDRALAZINE HCL) 25 Mg Tablet, 25 MG PO BID, #60 TAB Prov:TAURUS ODOM DO 11/01/17 Metoprolol Tartrate (METOPROLOL TARTRATE) 25 Mg Tablet, 1 TAB PO BID, #60 TAB Prov:TAURUS ODOM DO 11/01/17 Past Medical/Surgical History Hypertension, chronic renal failure not on dialysis, diabetes type II insulin required, new onset A. fib, recently started on had warfarin coagulation Reviewed Nurses Notes: Yes Old Medical Records Reviewed: Yes Hx Smoking: Yes (QUIT 40 YEARS AGO) Smoking Status: Former Smoker Exposure to Second Hand Smoke?: Yes Hx Substance Use Disorder: No Hx Alcohol Use: Yes Constitutional Vital Sign - Last 24 Hours 11/07/17 11/07/17 11/07/17 11/07/17 02:07 02:17 02:21 02:30 Temp 98.4 Pulse 66 60 Resp 24 22 B/P (MAP) 175/94 156/78 (104) Pulse Ox 93 87 O2 Delivery Nasal Cannula Nasal Cannula O2 Flow Rate 3.0 2 11/07/17 11/07/17 11/07/17 11/07/17 02:36 02:41 03:00 03:01 Pulse 60 61 60 Resp 10 13 14 B/P (MAP) 153/74 (100) Pulse Ox 88 92 93 O2 Delivery Nasal Cannula Nasal Cannula Nasal Cannula O2 Flow Rate 3 3 3 11/07/17 11/07/17 11/07/17 11/07/17 03:16 03:30 03:31 03:36 Pulse 60 60 61 Resp 11 18 21 B/P (MAP) 160/86 (110) Pulse Ox 95 95 94 O2 Delivery Nasal Cannula Nasal Cannula Nasal Cannula O2 Flow Rate 3 3 3 11/07/17 11/07/17 11/07/17 11/07/17 03:51 04:00 04:06 04:21 Pulse 60 61 60 Resp 23 23 29 B/P (MAP) 147/75 (99) Pulse Ox 92 95 93 O2 Delivery Nasal Cannula Nasal Cannula Nasal Cannula O2 Flow Rate 3 3 3 11/07/17 11/07/17 11/07/17 11/07/17 04:30 04:36 04:51 05:00 Pulse 59 61 Resp 17 26 B/P (MAP) 148/76 (100) 150/83 (105) Pulse Ox 97 95 O2 Delivery Nasal Cannula Nasal Cannula O2 Flow Rate 3 3 11/07/17 11/07/17 11/07/17 11/07/17 05:06 05:11 05:16 05:30 Pulse 60 60 60 Resp 0 38 15 B/P (MAP) 147/84 (105) Pulse Ox 96 93 93 O2 Delivery Nasal Cannula Nasal Cannula Nasal Cannula O2 Flow Rate 3 3 3 11/07/17 11/07/17 11/07/17 11/07/17 05:31 05:46 05:51 06:00 Pulse 60 60 60 Resp 33 0 20 B/P (MAP) 146/85 (105) Pulse Ox 95 93 92 O2 Delivery Nasal Cannula Nasal Cannula Nasal Cannula O2 Flow Rate 3 3 3 11/07/17 06:06 Pulse 61 Resp 25 B/P (MAP) 153/84 (107) Pulse Ox 91 O2 Delivery Nasal Cannula O2 Flow Rate 3 Physical Exam General Appearance: The patient is alert, has no immediate need for airway protection and no current signs of toxicity. Vital signs stable, afebrile, pulse ox 93% on 3 L HEENT: Pupils equal and round no injection. Oropharynx without redness or exudate, mucous. Membranes are moist Respiratory: Chest is non tender, lungs are clear to auscultation. No chest wall tenderness Cardiac: regular rate and rhythm Gastrointestinal: Abdomen is soft and non tender, no masses, bowel sounds normal. Musculoskeletal: Neck: Neck is supple and non tender. Extremities have full range of motion and are non tender. 1+ edema bilaterally appears chronic Skin: No rashes or lesions. DIFFERENTIAL DIAGNOSIS: After history and physical exam differential diagnosis was considered for chest pain including but not limited to myocardial ischemia, pericarditis pulmonary embolus, chest wall pain, pleural inflammation and pulmonary infectious causes. Medical Decision Making Data Points Result Diagram: 11/07/17 0220 11/07/17 022 Laboratory Hematology Test 11/07/17 02:20 11/07/17 05:25 Red Blood Count 4.92 M/uL (4.00-5.60) Mean Corpuscular Volume 87.2 fL (80.0-96.0) Mean Corpuscular Hemoglobin 29.5 pg (26.0-33.0) Mean Corpuscular Hemoglobin Concent 33.8 g/dL (32.0-36.0) Red Cell Distribution Width 14.4 % (11.5-14.5) Mean Platelet Volume 8.5 fL (7.2-11.1) Neutrophils (%) (Auto) 67.8 % (39.4-72.5) Lymphocytes (%) (Auto) 18.9 % (17.6-49.6) Monocytes (%) (Auto) 10.4 % (4.1-12.4) Eosinophils (%) (Auto) 2.3 % (0.4-6.7) Basophils (%) (Auto) 0.6 % (0.3-1.4) Nucleated RBC Relative Count (auto) 0.0 /100WBC Neutrophils # (Auto) 6.4 K/uL (2.0-7.4) Lymphocytes # (Auto) 1.8 K/uL (1.3-3.6) Monocytes # (Auto) 1.0 K/uL (0.3-1.0) Eosinophils # (Auto) 0.2 K/uL (0.0-0.5) Basophils # (Auto) 0.1 K/uL (0.0-0.1) Nucleated RBC Absolute Count (auto) 0.00 K/uL Prothrombin Time 23.7 seconds (12.0-14.4) Prothromb Time International Ratio 2.06 Sodium Level 138 mmol/L (137-145) Potassium Level 4.3 mmol/L (3.5-5.0) Chloride Level 103 mmol/L (98-107) Carbon Dioxide Level 25 mmol/L (22-30) Blood Urea Nitrogen 40 mg/dl (9-21) Creatinine 2.30 mg/dl (0.66-1.25) Glomerular Filtration Rate Calc 27.4 Random Glucose 62 mg/dl (75-110) Calcium Level 9.8 mg/dl (8.4-10.2) Total Bilirubin 0.3 mg/dl (0.2-1.3) Aspartate Amino Transf (AST/SGOT) 24 U/L (0-35) Alanine Aminotransferase (ALT/SGPT) 20 U/L (0-56) Alkaline Phosphatase 63 U/L (0-126) B-Type Natriuretic Peptide 133 pg/ml (0-100) Total Protein 6.7 gm/dl (6.3-8.2) Albumin 3.7 g/dl (3.5-5.0) Troponin I 0.050 ng/ml Chemistry Test 11/07/17 02:20 11/07/17 05:25 White Blood Count 9.4 k/uL (4.5-11.0) Red Blood Count 4.92 M/uL (4.00-5.60) Hemoglobin 14.5 g/dL (14.0-18.0) Hematocrit 42.9 % (42.0-52.0) Mean Corpuscular Volume 87.2 fL (80.0-96.0) Mean Corpuscular Hemoglobin 29.5 pg (26.0-33.0) Mean Corpuscular Hemoglobin Concent 33.8 g/dL (32.0-36.0) Red Cell Distribution Width 14.4 % (11.5-14.5) Platelet Count 211 K/uL (150-450) Mean Platelet Volume 8.5 fL (7.2-11.1) Neutrophils (%) (Auto) 67.8 % (39.4-72.5) Lymphocytes (%) (Auto) 18.9 % (17.6-49.6) Monocytes (%) (Auto) 10.4 % (4.1-12.4) Eosinophils (%) (Auto) 2.3 % (0.4-6.7) Basophils (%) (Auto) 0.6 % (0.3-1.4) Nucleated RBC Relative Count (auto) 0.0 /100WBC Neutrophils # (Auto) 6.4 K/uL (2.0-7.4) Lymphocytes # (Auto) 1.8 K/uL (1.3-3.6) Monocytes # (Auto) 1.0 K/uL (0.3-1.0) Eosinophils # (Auto) 0.2 K/uL (0.0-0.5) Basophils # (Auto) 0.1 K/uL (0.0-0.1) Nucleated RBC Absolute Count (auto) 0.00 K/uL Prothrombin Time 23.7 seconds (12.0-14.4) Prothromb Time International Ratio 2.06 Glomerular Filtration Rate Calc 27.4 Calcium Level 9.8 mg/dl (8.4-10.2) Total Bilirubin 0.3 mg/dl (0.2-1.3) Aspartate Amino Transf (AST/SGOT) 24 U/L (0-35) Alanine Aminotransferase (ALT/SGPT) 20 U/L (0-56) Alkaline Phosphatase 63 U/L (0-126) B-Type Natriuretic Peptide 133 pg/ml (0-100) Total Protein 6.7 gm/dl (6.3-8.2) Albumin 3.7 g/dl (3.5-5.0) Troponin I 0.050 ng/ml Coagulation Test 11/07/17 02:20 Prothrombin Time 23.7 seconds Prothromb Time International Ratio 2.06 EKG/Imaging EKG Interpretation 12 lead EK Rhythm: Atrial flutter with a variable block [place]: Left axis deviation QRS: Wide QRS with nonspecific interventricular conduction delay, prolonged QT ST segments: Nonspecific ST and T-wave changes, comparison to previous EKG dated 10/30 and 11/01 no significant morphologic change Imaging X-ray: Single view portable chest x-ray was obtained. I viewed the images myself on the PACS system. My interpretation of the images is: No infiltrate, no effusion, normal mediastinum. [The radiologist interpretation had no clinically significant variation from this interpretation]. ED Course/Re-evaluation Clinical Indication for ER IV: IV Access ED Course Patient was admitted to an examination room. H&P was done. The differential diagnoses was considered. On clinical examination. Patient is complaining of chest pain. On arrival. His EKG is unremarkable and unchanged from previous. His initial troponin is mildly elevated, but it appears to be his baseline in the indeterminate range. Patient's noted be hypoglycemic with a blood glucose of 62. He is given by mouth apple juice and feels much better. A repeat troponin at 3 hours is unchanged. Patient will likely go home. I see no reason he cannot. He is advised to follow-up with his primary care sports fitness and wellness director as planned. Decision to Disposition Date: November 07, 2017 Decision to Disposition Time: 05:56 Depart Departure Latest Vital Signs Vital Signs Date Time Temp Pulse Resp B/P (MAP) Pulse Ox O2 Delivery O2 Flow Rate FiO2 11/07/17 06:06 61 25 153/84 (107) 91 Nasal Cannula 3 11/07/17 02:07 98.4 Impression: Primary Impression: Chest pain Additional Impressions: Hypoglycemia Type II diabetes mellitus Condition: Improved Disposition: HOME OR SELF-CARE Referrals: ERROL WRIGHT DO (PCP) Patient Instructions: Chest Pain (ED), Hypoglycemia in a Person with Diabetes ( ED) Additional Instructions: Follow-up with your primary care doctor this next week if not feeling improved Problem Qualifiers Primary Impression: Chest pain Chest pain type: unspecified Qualified Codes: R07.9 - Chest pain, unspecified Additional Impressions: Type II diabetes mellitus Diabetes mellitus [employer] insulin use: with [facility] use Diabetes mellitus complication status: with unspecified complications Qualified Codes: E11.8 - Type 2 diabetes mellitus with unspecified complications; Z79.4 - shelter (current) use of insulin KOJO CRAWFORD DO November 07, 2017 02:08
[2017-11-07] MEDS ORDERED: ASPIRIN 81 MG CHEW PO ONE (02:15)
[2017-11-07 02:33] LABS: PLATELET COUNT, AUTOMATED 211 K/uL (150-450)
--- NOTE | 2017-11-07 02:43 | RADIOLOGY IMAGING REPORT ---
FACILITY[place] [facility] [place]IENT NAME: Pawel Azul : 1935 MR: [id number] V: [id number] EXAM DATE: ORDERING PHYSICIAN: KOJO CRAWFORD TECHNOLOGIST: Location: [facility] - [place] Patient: Pawel Azul : 1935 Visit/Account:[id number] Date of Sevice: 11/07/2017 PORTABLE CHEST: Indication: Chest pain. Technique: A single frontal film was obtained. Comparison: 10/30/2017 Skeletal and soft tissue structures: Intact and unchanged. Heart and mediastinum: The heart is mildly enlarged. The cardiac pacemaker leads appear unchanged. Lung torres: Well-expanded. No focal or diffuse opacities are identified. There is no definite vascul ar congestion. Pleural spaces: Unremarkable. Impression: No acute interval change. Report Dictated By: Torsten Mary MD at 11/07/2017 2:36 AM Report E-Signed By: Torsten Mary MD at 11/07/2017 2:38 AM WSN:[id number]
[2017-11-07 02:58] LABS: INR 2.06
[2017-11-07 06:06] VITALS: BP 153/84
--- NOTE | 2017-11-07 08:36 | EKG ---
FACILITY: [facility] PATIENT NAME: KATHYA BRYAN : [id number] MR: [id number] V: [id number] EXAM DATE: ORDERING PHYSICIAN: KOJO CRAWFORD TECHNOLOGIST: MANPREET Test Reason : CHEST PAIN Blood Pressure : / mmHG Vent. Rate : 068 BPM Atrial Rate : 300 BPM P-R Int : 000 ms QRS Dur : 098 ms QT Int : 442 ms P-R-T Axes : 000 -67 091 degrees QTc Int : 469 ms Atrial flutter with variable AV block with premature ventricular or aberrantly conducted complexes Left axis deviation Nonspecific ST and T wave abnormality Prolonged QT Abnormal ECG Confirmed by TORRI LOWRY ([id number]) on 11/07/2017 11:28:48 AM Referred By: Confirmed By:TORRI LOWRY
== END 2017-11-07 06:33 | disposition home or self-care (01) ==
LOC: ER 02:12
DX: E11.649 Type 2 diabetes mellitus with hypoglycemia without coma (principal); Z79.4 Long term (current) use of insulin; I48.92 Unspecified atrial flutter; R94.31 Abnormal electrocardiogram [ECG] [EKG]
CPT/HCPCS: 71045; 83880; 84484; 85025; 85610; 99284; A9270; 82040; 82247; 82310; 82374; 82435; 82565; 82947; 84075; 84132; 84155; 84295; 84450; 84460; 84520; 93005

== ENCOUNTER → 2017-11-07 | Outpatient (CLI) | payer MEDICARE, BC ==
[2017-10-31 11:01] VITALS: BMI 26.9
[~2017-11-07] MED LIST changes: +CAL25 FT; +CLOB15CR22 TP; +ENOX40DI9 SQ; +FURO-45 PO; +INSU100I30 SQ; +METO25TA93 PO; +NIT4 SL; +SIMV-54 PO
== END ==
LOC: AMB 01:43
PROVIDERS: ATTEND Nurse Practitioner
DX: R07.9 Chest pain, unspecified (principal); R06.02 Shortness of breath; I48.92 Unspecified atrial flutter; I49.3 Ventricular premature depolarization
CPT/HCPCS: A0425; A0427

== ENCOUNTER → 2017-11-14 | Outpatient (REF) | payer MEDICARE, BC ==
[2017-10-31 11:01] VITALS: BMI 26.9
== END ==
LOC: ZZSENDIN 12:00
PROVIDERS: ATTEND Surgery
DX: C44.311 Basal cell carcinoma of skin of nose (principal); C44.621 Squamous cell carcinoma of skin of unspecified upper limb, including shoulder
CPT/HCPCS: 88305

== ENCOUNTER → 2017-11-23 | Outpatient (REF) | payer MEDICARE, BC ==
[2017-10-31 11:01] VITALS: BMI 26.9
== END ==
LOC: ZZSENDIN 12:00
PROVIDERS: ATTEND Surgery
DX: C44.311 Basal cell carcinoma of skin of nose (principal)
CPT/HCPCS: 88305

== ENCOUNTER → 2018-02-01 | Outpatient (CLI) | payer MEDICARE, BC ==
[~2018-02-01] MED LIST changes: -BENA40TA52 PO; +BENA40TA53 PO
--- NOTE | 2018-02-01 16:44 | RADIOLOGY IMAGING REPORT ---
FACILITY: [facility] [place] PATIENT NAME: Pawel Azul : 1935 MR: [id number] V: [id number] EXAM DATE: ORDERING PHYSICIAN: ERROL WRIGHT TECHNOLOGIST: Location: [facility] [place] Patient: Pawel Azul : 1935 Visit/Account:[id number] Date of Sevice: 02/01/2018 Examination: KNEE 3 VIEW RIGHT Comparison: 10/04/2017 History: Right knee pain. No known injury. Findings: No acute fracture or malalignment. Tricompartmental mild degenerative joint space loss with mild femorotibial compartment chondrocalcinosis. Small nonspecific joint effusion. Severe atheroscle rosis throughout the visualized lower extremity. IMPRESSION: 1. No right knee fracture or malalignment. 2. Unchanged mild tricompartmental degenerative change. 3. Small nonspecific joint effusion. 4. Severe atherosclerosis. Report Dictated By: Mahamed Morin MD at 02/01/2018 4:37 PM Report E-Signed By: Mahamed Morin MD at 02/01/2018 4:39 PM WSN:[id number]
== END ==
LOC: RAD 15:58
PROVIDERS: ATTEND Family Medicine
DX: M17.11 Unilateral primary osteoarthritis, right knee (principal); M25.461 Effusion, right knee; I70.208 Unspecified atherosclerosis of native arteries of extremities, other extremity

== ENCOUNTER 2018-02-10 21:34 | Observation (INO) | payer MEDICARE, BC ==
[~2018-02-10] VITALS: Ht 182.9 cm; Wt 90.5 kg
[~2018-02-10 21:34] MED LIST changes: +CAL25 FT; -CAL25 PO; -DOXA8TAB11 PO; -FURO20TA19 PO; -LIDO700A19 TP; -TRIA15CR40 TP
--- NOTE | 2018-02-10 21:48 | ER Report ---
History and Physical Time Seen By MD: 21:47 HPI/ROS CHIEF COMPLAINT: right knee pain HISTORY OF PRESENT ILLNESS: This is an 82 year old male. He has been having problems with right knee pain chronically for years now. Worsening recently, and to the point where he has severe pain with movement (flexion and extension) and with weight bearing. He has been using a walker and transfer chair at home with his helping, but has almost fallen a few times and his is unable to help him get up from seated. She is very worried about caring for him at home. He says the pain has gotten to the point where he can not stand it. He was given a prescription for Tramadol and said that it does not help the pain, but it does knock him out and make him feel out of it and is able to sleep, but wakes with the same severe pain. He has not had any fevers or chills. No injuries recently. He has some low back pain that is chronic as well and that seems a little worse the last few days as well. No numbness or tingling in the leg. He does not feel weak, but cannot move well because of pain. He says the pain is mainly in the knee. No pain in the calf or thigh. REVIEW OF SYSTEMS: Respiratory: No cough, no dyspnea. Cardiovascular: No chest pain, no palpitations. Gastrointestinal: No vomiting, no abdominal pain. Denies problems with bowels. Genitourinary: Denies dysuria. Allergies: Coded Allergies: Sulfa (Sulfonamide Antibiotics) (Unverified Allergy, Mild, RASH, 02/10/18) Home Meds Active Scripts Warfarin Sodium (COUMADIN) 5 Mg Tablet, 5 MG PO QDAY@13, #30 TAB Prov:TAURUS ODOM DO 11/01/17 Aspirin (ASPIRIN) 81 Mg Tab.chew, 81 MG PO QDAY, #30 TAB.CHEW 10 Refills Prov:JENN PRAKINSON MD FACP 08/30/15 Reported Medications Triamcinolone Acetonide 0.1% Cr 15 Gm Tube (TRIAMCINOLONE ACETONIDE 0.1% CREAM) 15 Gm Cream..g., TP BID, TUBE 02/10/18 Simvastatin (SIMVASTATIN) 40 Mg Tablet, 40 MG PO HS, TAB 02/10/18 Nortriptyline Hcl (NORTRIPTYLINE HCL) 10 Mg Cap, 10 MG PO QDAY, CAP 02/10/18 Insulin Glargine 100 Un/Ml Pen (LANTUS SOLOSTAR PEN) 100 Unit/1 Ml Insuln.pen, 27 UNIT SQ QDAY, ML 02/10/18 Furosemide (LASIX) 20 Mg Tablet, 1 TAB PO QDAY, TAB 02/10/18 Doxazosin Mesylate (DOXAZOSIN MESYLATE) 8 Mg Tablet, 8 MG PO HS 02/10/18 Amlodipine Besylate (AMLODIPINE BESYLATE) 10 Mg Tablet, 1 TAB PO QDAY, TAB 02/10/18 Insulin Aspart 100 Un/Ml Pen (NOVOLOG FLEXPEN) 100 Unit/1 Ml Insuln.pen, 4 UNIT SQ TID, ML 11/01/17 Nitroglycerin (NITROSTAT) 0.4 Mg Subl, 0.4 MG SL Q5MIN 11/01/17 Clobetasol Propionate/Emoll (CLOBETASOL EMOLLIENT 0.05% CRM) 15 Gm Cream..g., 0 TP BID 11/01/17 Calcitriol (CALCITRIOL) 0.25 Mcg Cap, 0.25 MCG FT 5 times a week, CAP 11/01/17 Benazepril Hcl (BENAZEPRIL HCL) 40 Mg Tablet, 40 MG PO BID, TAB 11/01/17 Metoprolol Succinate (TOPROL XL) 100 Mg Tab.er.24h, 1 TAB PO QDAY, TAB 08/13/16 Hydralazine Hcl (HYDRALAZINE HCL) 50 Mg Tablet, 50 MG PO BID, TAB 08/13/16 Acetaminophen (TYLENOL) 325 Mg Tablet, 325 MG PO PRN, TAB 08/11/16 Famotidine (FAMOTIDINE) 20 Mg Tablet, 20 MG PO QDAY, TAB 06/08/16 Oxygen (OXYGEN) 2 L Inha, 2 L INH HS Y for SEE COMMENT, L 12/06/14 Discontinued Reported Medications Insulin Glargine,Hum.rec.anlog (Basaglar Kwikpen U-100) 100 Unit/Ml (3 Ml) Insuln.pen, 35 QHS 10/30/17 Discontinued Scripts Enoxaparin Sodium (ENOXAPARIN SODIUM) 40 Mg/0.4 Ml Disp.syrin, 40 MG SQ DAILY, # 2 SYR Prov:TAURUS ODOM DO 5/8/18 Reviewed Nurses Notes: Yes Hx Smoking: Yes (QUIT 40 YEARS AGO) Smoking Status: Former Smoker Exposure to Second Hand Smoke?: Yes Hx Substance Use Disorder: No Hx Alcohol Use: Yes Constitutional Vital Sign - Last 24 Hours 02/10/18 02/10/18 02/10/18 02/10/18 21:36 21:37 21:45 21:49 Temp 98.3 Pulse 60 60 Resp 16 B/P (MAP) 146/76 (99) 146/76 147/73 (97) Pulse Ox 89 96 O2 Delivery Room Air 02/10/18 02/10/18 02/10/18 02/10/18 22:00 22:04 22:15 22:19 Pulse 60 60 B/P (MAP) 140/104 (116) 151/78 (102) Pulse Ox 96 94 02/10/18 02/10/18 02/10/18 02/10/18 22:30 22:34 22:39 22:54 Pulse 60 60 60 B/P (MAP) 148/78 (101) Pulse Ox 93 95 02/10/18 02/10/18 02/10/18 02/10/18 23:00 23:09 23:24 23:30 Pulse 60 60 B/P (MAP) 155/83 (107) 160/90 (113) Pulse Ox 95 93 02/10/18 02/10/18 02/10/18 02/11/18 23:39 23:44 23:59 00:00 Pulse 60 60 60 B/P (MAP) 168/91 (116) Pulse Ox 95 94 96 02/11/18 02/11/18 02/11/18 00:14 00:29 00:30 Pulse 60 59 B/P (MAP) 165/88 (113) Pulse Ox 96 94 Physical Exam General Appearance: The patient is alert. Some distress due to pain, but doing okay at rest without movement. Distress with the pain when trying to move the knee. Non-toxic in appearance. Eyes: Pupils are equal, round. No pallor, injection or icterus. ENT: Mucous membranes are moist. Respiratory: Lungs are clear to auscultation. Cardiovascular: Regular rate and rhythm. No murmurs, gallops or rubs. No edema. Gastrointestinal: Abdomen is soft and non tender. Nondistended. Neurological: Alert and oriented x3. Has normal sensation in the leg, no numbness or tingling. Can move the hip, but causes pain in the knee. Movement of the knee very painful. Can move foot and ankle without problems Skin: Warm and dry. No rashes. The knee is not warmer than the surrounding tissues and no redness present. Musculoskeletal: Any movement of the knee causes severe pain. No pain with palpation of the knee while at rest. No pain in palpating the rest of the right leg. Has mild paraspinous lumbar pain bilaterally, but no sciatic area pain and no pain over the spinous processes. DIFFERENTIAL DIAGNOSIS: After history and physical exam, differential diagnosis was considered for pain in the right knee, which seems isolated to the knee, worsened with movement. Has some chronic back pain which is a little worse than normal, likely from recent immobility. Medical Decision Making Data Points Result Diagram: 02/10/18222802/10/182228 Laboratory Hematology Test 02/10/18 22:29 02/11/18 00:00 Red Blood Count 5.05 M/uL (4.00-5.60) Mean Corpuscular Volume 86.5 fL (80.0-96.0) Mean Corpuscular Hemoglobin 29.0 pg (26.0-33.0) Mean Corpuscular Hemoglobin Concent 33.5 g/dL (32.0-36.0) Red Cell Distribution Width 15.2 % (11.5-14.5) Mean Platelet Volume 8.3 fL (7.2-11.1) Neutrophils (%) (Auto) 69.3 % (39.4-72.5) Lymphocytes (%) (Auto) 16.4 % (17.6-49.6) Monocytes (%) (Auto) 12.7 % (4.1-12.4) Eosinophils (%) (Auto) 0.7 % (0.4-6.7) Basophils (%) (Auto) 0.9 % (0.3-1.4) Nucleated RBC Relative Count (auto) 0.1 /100WBC Neutrophils # (Auto) 4.5 K/uL (2.0-7.4) Lymphocytes # (Auto) 1.1 K/uL (1.3-3.6) Monocytes # (Auto) 0.8 K/uL (0.3-1.0) Eosinophils # (Auto) 0.0 K/uL (0.0-0.5) Basophils # (Auto) 0.1 K/uL (0.0-0.1) Nucleated RBC Absolute Count (auto) 0.01 K/uL Erythrocyte Sedimentation Rate 26 mm/HOUR (0-20) Sodium Level 140 mmol/L (137-145) Potassium Level 4.2 mmol/L (3.5-5.0) Chloride Level 107 mmol/L (98-107) Carbon Dioxide Level 23 mmol/L (22-30) Blood Urea Nitrogen 42 mg/dl (9-21) Creatinine 2.40 mg/dl (0.66-1.25) Glomerular Filtration Rate Calc 26.0 Random Glucose 72 mg/dl (75-110) Uric Acid 7.6 mg/dl (3.5-8.5) Calcium Level 9.7 mg/dl (8.4-10.2) Total Bilirubin 0.4 mg/dl (0.2-1.3) Aspartate Amino Transf (AST/SGOT) 23 U/L (0-35) Alanine Aminotransferase (ALT/SGPT) 18 U/L (0-56) Alkaline Phosphatase 50 U/L (0-126) C-Reactive Protein 0.7 mg/dl (<1.0) Total Protein 6.8 g/dl (6.3-8.2) Albumin 4.0 g/dl (3.5-5.0) Prothrombin Time 22.3 seconds (12.0-14.4) Prothromb Time International Ratio 1.92 Chemistry Test 02/10/18 22:29 02/11/18 00:00 White Blood Count 6.6 k/uL (4.5-11.0) Red Blood Count 5.05 M/uL (4.00-5.60) Hemoglobin 14.6 g/dL (14.0-18.0) Hematocrit 43.7 % (42.0-52.0) Mean Corpuscular Volume 86.5 fL (80.0-96.0) Mean Corpuscular Hemoglobin 29.0 pg (26.0-33.0) Mean Corpuscular Hemoglobin Concent 33.5 g/dL (32.0-36.0) Red Cell Distribution Width 15.2 % (11.5-14.5) Platelet Count 215 K/uL (150-450) Mean Platelet Volume 8.3 fL (7.2-11.1) Neutrophils (%) (Auto) 69.3 % (39.4-72.5) Lymphocytes (%) (Auto) 16.4 % (17.6-49.6) Monocytes (%) (Auto) 12.7 % (4.1-12.4) Eosinophils (%) (Auto) 0.7 % (0.4-6.7) Basophils (%) (Auto) 0.9 % (0.3-1.4) Nucleated RBC Relative Count (auto) 0.1 /100WBC Neutrophils # (Auto) 4.5 K/uL (2.0-7.4) Lymphocytes # (Auto) 1.1 K/uL (1.3-3.6) Monocytes # (Auto) 0.8 K/uL (0.3-1.0) Eosinophils # (Auto) 0.0 K/uL (0.0-0.5) Basophils # (Auto) 0.1 K/uL (0.0-0.1) Nucleated RBC Absolute Count (auto) 0.01 K/uL Erythrocyte Sedimentation Rate 26 mm/HOUR (0-20) Glomerular Filtration Rate Calc 26.0 Uric Acid 7.6 mg/dl (3.5-8.5) Calcium Level 9.7 mg/dl (8.4-10.2) Total Bilirubin 0.4 mg/dl (0.2-1.3) Aspartate Amino Transf (AST/SGOT) 23 U/L (0-35) Alanine Aminotransferase (ALT/SGPT) 18 U/L (0-56) Alkaline Phosphatase 50 U/L (0-126) C-Reactive Protein 0.7 mg/dl (<1.0) Total Protein 6.8 g/dl (6.3-8.2) Albumin 4.0 g/dl (3.5-5.0) Prothrombin Time 22.3 seconds (12.0-14.4) Prothromb Time International Ratio 1.92 Coagulation Test 02/11/18 00:00 Prothrombin Time 22.3 seconds Prothromb Time International Ratio 1.92 ED Course/Re-evaluation ED Course Deferred on x-rays as he had some about a week ago which showed severe arthritis. Dr. Ewing had ordered a bilateral duplex arterial ultrasound, but unsure what the reason for this study was. He sees Dr. Ewing for cardiology, and Dr. Palma for kidney problems with chronic kidney disease. He has diabetes , and had an elevated blood sugar this evening, 388, and covered with 8 units of his Novolog insulin. We decided to see if Lortab 5/325 would help the pain any more than the Ultram and hopefully not make him any more confused. Considered a steroid, but with his blood sugars and diabetes, we were going to hold off on this for now. Labs obtained and he does have an elevated ESR, but CBC did not show an elevated white blood cell count. Metabolic panel showed the chronic renal insufficiency. Blood sugar was a little low at 72. Re-evaluatio showed that the patient is more confused, probably due to the hydrocodone. We did provide something for him to eat/drink. Discussed the case with Dr. Ramos who did come to the ER to evaluate the patient and will be accepting him for admission. Decision to Disposition Date: Feb 11, 2018 Decision to Disposition Time: 00:29 Depart Departure Latest Vital Signs Vital Signs Date Time Temp Pulse Resp B/P (MAP) Pulse Ox O2 Delivery O2 Flow Rate FiO2 02/11/18 00:30 165/88 (113) 02/11/18 00:29 59 94 02/10/18 21:37 98.3 16 Room Air Impression: Primary Impression: Knee pain, right Condition: Condition Unchanged Disposition: Admitted from ER Referrals: REROL WRIGHT DO (PCP) Problem Qualifiers Primary Impression: Knee pain, right Chronicity: chronic Qualified Codes: M25.561 - Pain in right knee; G89.29 - Other chronic pain NATY SELBY MD Feb 10, 2018 21:47
[2018-02-10] MEDS ORDERED: APAP/HYDROCODONE 325/5 TAB PO ONE (22:10)
[2018-02-10] MEDS ORDERED: AMLO-99 PO (22:11)
[2018-02-10] MEDS ORDERED: DOXA8TAB11 PO (22:13)
[2018-02-10] MEDS ORDERED: FURO20TA19 PO (22:15)
[2018-02-10] MEDS ORDERED: INSU100I30 SQ (22:16)
[2018-02-10] MEDS ORDERED: SIMV-54 PO (22:18)
[2018-02-10] MEDS ORDERED: NOR10 PO (22:18)
[2018-02-10] MEDS ORDERED: TRIA15CR40 TP (22:20)
[2018-02-10 22:37] LABS: PLATELET COUNT, AUTOMATED 215 K/uL (150-450)
[2018-02-11] MEDS ORDERED: ACETAMINOPHEN 500 MG TAB PO PRN (00:15)
[2018-02-11 00:18] LABS: INR 1.92
[2018-02-11 00:45] VITALS: BP 174/82
--- NOTE | 2018-02-11 00:52 | History & Physical ---
History of Present Illness History of Present Illness 82yo male with a h/o CKD, CAD, arthritis, and T2DM who was brought to the ER for confusion and difficulty ambulating secondary to right knee pain. Over 2 weeks ago, he slipped out of a motorized shopping cart and hurt his right knee. He wasn't too limited by the pain and then it seemed to resolve. However, about 10 days ago it hurt again and he saw his PCP. An Xray of the knee was done, but there were no gross abnormalities. The pain persisted, so Tramadol was tried for the last couple of days. It hasn't helped the pain, but he is more confused. He has continued to get a few doses a day. Tonight, he couldn' t get off the toilet, so his helped him to his rolling walker. She got him to a chair and he basically fell into it. She was nervous that with the increased confusion and more difficulty ambulating that he is at high risk for falling. The history is from the by phone. She reports that he has not had any f/c/n/v/cp/sob. History Problems: (1) HTN (hypertension) Status: Chronic (2) Diabetes type 2, controlled Status: Chronic (3) Hyperlipidemia Status: Chronic (4) BPH (benign prostatic hyperplasia) Status: Chronic (5) CAD (coronary artery disease) Status: Chronic (6) DVT (deep venous thrombosis) Status: Resolved (7) Chronic kidney disease (CKD) stage G4/A1, severely decreased glomerular filtration rate (GFR) between 15-29 mL/min/1.73 square meter and albuminuria creatinine ratio less than 30 mg/g Status: Chronic (8) New onset atrial flutter Status: Chronic Home Meds Active Scripts Warfarin Sodium (COUMADIN) 5 Mg Tablet, 5 MG PO QDAY@13, #30 TAB Prov:TAURUS ODOM DO 11/01/17 Aspirin (ASPIRIN) 81 Mg Tab.chew, 81 MG PO QDAY, #30 TAB.CHEW 10 Refills Prov:JENN PARKINSON MD FACP 08/30/15 Reported Medications Triamcinolone Acetonide 0.1% Cr 15 Gm Tube (TRIAMCINOLONE ACETONIDE 0.1% CREAM) 15 Gm Cream..g., TP BID, TUBE 02/10/18 Simvastatin (SIMVASTATIN) 40 Mg Tablet, 40 MG PO HS, TAB 02/10/18 Nortriptyline Hcl (NORTRIPTYLINE HCL) 10 Mg Cap, 10 MG PO QDAY, CAP 02/10/18 Insulin Glargine 100 Un/Ml Pen (LANTUS SOLOSTAR PEN) 100 Unit/1 Ml Insuln.pen, 27 UNIT SQ QDAY, ML 02/10/18 Furosemide (LASIX) 20 Mg Tablet, 1 TAB PO QDAY, TAB 02/10/18 Doxazosin Mesylate (DOXAZOSIN MESYLATE) 8 Mg Tablet, 8 MG PO HS 02/10/18 Amlodipine Besylate (AMLODIPINE BESYLATE) 10 Mg Tablet, 1 TAB PO QDAY, TAB 02/10/18 Insulin Aspart 100 Un/Ml Pen (NOVOLOG FLEXPEN) 100 Unit/1 Ml Insuln.pen, 4 UNIT SQ TID, ML 11/01/17 Nitroglycerin (NITROSTAT) 0.4 Mg Subl, 0.4 MG SL Q5MIN 11/01/17 Clobetasol Propionate/Emoll (CLOBETASOL EMOLLIENT 0.05% CRM) 15 Gm Cream..g., 0 TP BID 11/01/17 Calcitriol (CALCITRIOL) 0.25 Mcg Cap, 0.25 MCG FT 5 times a week, CAP 11/01/17 Benazepril Hcl (BENAZEPRIL HCL) 40 Mg Tablet, 40 MG PO BID, TAB 11/01/17 Metoprolol Succinate (TOPROL XL) 100 Mg Tab.er.24h, 1 TAB PO QDAY, TAB 08/13/16 Hydralazine Hcl (HYDRALAZINE HCL) 50 Mg Tablet, 50 MG PO BID, TAB 08/13/16 Acetaminophen (TYLENOL) 325 Mg Tablet, 325 MG PO PRN, TAB 08/11/16 Famotidine (FAMOTIDINE) 20 Mg Tablet, 20 MG PO QDAY, TAB 06/08/16 Oxygen (OXYGEN) 2 L Inha, 2 L INH HS Y for SEE COMMENT, L 12/06/14 Discontinued Reported Medications Insulin Glargine,Hum.rec.anlog (Basaglar Kwikpen U-100) 100 Unit/Ml (3 Ml) Insuln.pen, 35 QHS 10/30/17 Discontinued Scripts Enoxaparin Sodium (ENOXAPARIN SODIUM) 40 Mg/0.4 Ml Disp.syrin, 40 MG SQ DAILY, # 2 SYR Prov:TAURUS ODOM DO 11/01/17 Allergies: Coded Allergies: Sulfa (Sulfonamide Antibiotics) (Unverified Allergy, Mild, RASH, 02/10/18) Patient History: FH: cancer MOTHER, , Age:60 years and older BROTHER OR SISTER BROTHER OR SISTER FH: diabetes mellitus CHILD FH: emphysema BROTHER OR SISTER Hx Smoking: Yes (QUIT 40 YEARS AGO) Smoking Status: Former Smoker Exposure to Second Hand Smoke?: Yes Caffeine Intake: Coffee, Soda Caffeine/Cups Per Day: 5 Hx Alcohol Use: Yes Hx Substance Use Disorder: No Social Drug Use: Never Review of Systems All Systems Reviewed/Normal: Yes, Except as Noted Exam Vital Signs Vital Signs Date Time Temp Pulse Resp B/P (MAP) Pulse Ox O2 Delivery O2 Flow Rate FiO2 02/10/18 23:39 60 95 02/10/18 23:30 160/90 (113) 02/10/18 21:37 98.3 16 Room Air General Appearance: Alert, Awake, No Acute Distress Neuro: No Gross deficits, Other (He knows where he is and why he is here. He knows the month and year. He is tangential with thoughts and has difficulty clearly stating what he is thinking) Cardiovascular: Regular Rate and Rhythm Respiratory: Clear to Auscultation Musculoskeletal: Other (Scar over left knee. Right knee mildly more swollen infrapatellarly. No erythema or joint line tenderness. Able to passively move the right knee. ) Extremities: No Edema Medical Decision Making Data Points Result Diagram: 02/10/18222802/10/182228 Item Value Date Time Erythrocyte Sedimentation Rate 26 mm/HOUR H 02/10/182228 Neutrophils (%) (Auto) 69.3 % 02/10/182228 Troponin I 0.052 ng/ml 11/07/17219 Troponin I 0.050 ng/ml 11/07/17 0525 Creatinine 2.30 mg/dl H 11/07/17219 Creatinine 2.40 mg/dl H 02/10/182228 EKG / Imaging Imaging 02/01/18 Knee Xray - 1. No right knee fracture or malalignment. 2. Unchanged mild tricompartmental degenerative change. 3. Small nonspecific joint effusion. 4. Severe atherosclerosis. Assessment and Plan Problems: (1) Knee pain, right Status: Acute Assessment & Plan: The pain started over 2 week prior to admission after he slipped out of a motorized grocery cart. He wasn't too limited by it, and then it resolved. The pain returned about 10 days prior to admission and hasn't improved. Tramadol was tried over the last couple of days and that has made him confused. The night of admission, he couldn't get out of the bathroom and his was concerned that he was too high risk of falling to be safe at home with the worsening confusion. His labs are at baseline. Knee XRay from 02/01 had no acute abnormalities. He was given Lortab in the ER, which made him more confused. Will admit and try APAP and Lidoderm patch for pain. He might benefit from a steroid injection in the knee. PT to eval and treat. (2) Confusion Status: Acute Assessment & Plan: Secondary to Tramadol and Lortab. Will stop narcotics and follow symptoms. Will hold his chronic nortriptyline. (3) HTN (hypertension) Status: Chronic Assessment & Plan: Continue chronic Toprol, hydralazine, amlodipine, benazepril. Will hold furosemide for now. (4) Diabetes type 2, controlled Status: Chronic Assessment & Plan: Continue Lantus, but only at 20 units rather that 27 units a day because his glucose is <100. AC and HS glucose with SSI to cover. (5) BPH (benign prostatic hyperplasia) Status: Chronic Assessment & Plan: Continue doxazosin. (6) CAD (coronary artery disease) Status: Chronic Assessment & Plan: Continue ASA and simvastatin. (7) Atrial fibrillation Status: Chronic Assessment & Plan: He is paced. He is also therapeutic on warfarin, which will be continued. Daily INR (8) Pacemaker Status: Chronic (9) Chronic kidney disease (CKD) stage G4/A1, severely decreased glomerular filtration rate (GFR) between 15-29 mL/min/1.73 square meter and albuminuria creatinine ratio less than 30 mg/g Status: Chronic Copies to: ERROL WRIGHT DO Venous Thromboembolism Antithrombotics Is Pt On Any Antithrombotics?: Yes Exam Sepsis Risk: No Definite Risk Problem Qualifiers (1) Knee pain, right: Chronicity: acute Qualified Codes: M25.561 - Pain in right knee ALBINO VALDEZ MD Feb 11, 2018 00:52
[2018-02-11] MEDS: MELATONIN 3 MG TAB PO SCH ×2 (01:56→21:48)
[2018-02-11 02:20] VITALS: BP 153/62
[2018-02-11] MEDS ORDERED: HYDR50TA35 PO (03:06)
[2018-02-11 07:59] VITALS: BP 172/87
[2018-02-11] MEDS: INSULIN GLARGINE 100 U/ML 3 ML PEN SUBQ SCH (10:21)
[2018-02-11] MEDS: amLODIPine BESYL(*) 5 MG TAB PO SCH (10:23)
[2018-02-11] MEDS: hydrALAZINE HCL 25 MG TAB PO SCH ×2 (10:23→21:49)
[2018-02-11] MEDS: METOPROLOL SUCC XL 50 MG TABCR 50 MG TAB.ER.24H PO SCH (10:23)
[2018-02-11] MEDS: ASPIRIN 81 MG CHEW PO SCH (10:23)
[2018-02-11] MEDS: FAMOTIDINE 20 MG TAB PO SCH (10:23)
[2018-02-11] MEDS: BENAZEPRIL HCL 20 MG TAB PO SCH ×2 (10:23→21:49)
[2018-02-11] MEDS: INSULIN HUM LISPRO 100 UN/ML 3 ML VIAL SUBQ PRN ×3 (12:00→21:50)
[2018-02-11] MEDS: LIDOCAINE 5% PATCH TP SCH (12:05)
[2018-02-11 12:35] VITALS: Ht 182.9 cm; Wt 90.5 kg
--- NOTE | 2018-02-11 12:41 | Hospitalist Progress Note ---
Subjective Progress Notes Subjective The patient states his knee feels better this am, but has been bothering for a couple of days at least. Physical Exam Vital Signs Date Time Temp Pulse Resp B/P (MAP) Pulse Ox O2 Delivery O2 Flow Rate FiO2 02/11/18 07:59 98.4 60 24 172/87 (115) 90 Nasal Cannula 1.0 Intake and Output 02/12/18 07:00 # Voids 2 General Appearance: Alert, Awake, No Acute Distress Neuro: Other (A bit confused at times about timing of events but otherwise improved.) Eyes: PERRLA Cardiovascular: Regular Rate and Rhythm Respiratory: Clear to Auscultation GI: Soft and Non-Tender Extremities: Warm, Perfused Psych: Appropriate Mood & Affect Result Diagram: 02/10/18222802/10/182228 Assessment and Plan Problems: (1) Knee pain, right Status: Acute Assessment & Plan: The pain started over 2 week prior to admission after he slipped out of a motorized grocery cart. He wasn't too limited by it, and then it resolved. The pain returned about 10 days prior to admission and hasn't improved. Tramadol was tried over the last couple of days and that has made him confused. The night of admission, he couldn't get out of the bathroom and his was concerned that he was too high risk of falling to be safe at home with the worsening confusion. His labs are at baseline. Knee XRay from 02/01 had no acute abnormalities but did show tricompartmental arthritis. He was given Lortab in the ER, which made him more confused. Will admit and try APAP and Lidoderm patch for pain. He might benefit from a steroid injection in the knee. PT to eval and treat. Dr. Cardona has agreed to see him today and inject his knee if appropriate. (2) Confusion Status: Acute Assessment & Plan: Secondary to Tramadol and Lortab. Will stop narcotics and follow symptoms. Will hold his chronic nortriptyline. (3) HTN (hypertension) Status: Chronic Assessment & Plan: Continue chronic Toprol, hydralazine, amlodipine, benazepril. Will hold furosemide for now. (4) Diabetes type 2, controlled Status: Chronic Assessment & Plan: Continue Lantus, but only at 20 units rather that 27 units a day because his glucose is <100. AC and HS glucose with SSI to cover. (5) BPH (benign prostatic hyperplasia) Status: Chronic Assessment & Plan: Continue doxazosin. (6) CAD (coronary artery disease) Status: Chronic Assessment & Plan: Continue ASA and simvastatin. (7) Atrial fibrillation Status: Chronic Assessment & Plan: He is paced. He is also therapeutic on warfarin, which will be continued. Daily INR (8) Pacemaker Status: Chronic (9) Chronic kidney disease (CKD) stage G4/A1, severely decreased glomerular filtration rate (GFR) between 15-29 mL/min/1.73 square meter and albuminuria creatinine ratio less than 30 mg/g Status: Chronic Time Spent on Plan of Care: < 30 min Exam Sepsis Risk: No Definite Risk Problem Qualifiers (1) Knee pain, right: Chronicity: chronic Qualified Codes: M25.561 - Pain in right knee; G89.29 - Other chronic pain PHYLICIA LOWRY MD Feb 11, 2018 12:41
--- NOTE | 2018-02-11 12:46 | Medical Nutrition Therapy ---
Nutrition Anthropometrics Height (Inches): 72.00 Height (Calculated Centimeters: 182.082273 Weight (Pounds): 199 Weight (Calculated Kilograms): 90.492 Mark Nutrition Score: Adequate Mark Nutrition Risk Score: 16 Dietary Referral Nutrition Risk Factors: Special Diet Nutrition Risk Comment: Pt indicates he has lost 190 lbs Physical Findings Physical Appearance: Overweight BMI 25-29 Skin Appearance Skin Appearance: Edema Edema Location Modifier: Both Edema Location: Ankle Type of Edema: Degree of Edema: 1+ Gastrointestinal Symptoms GI Symtoms: Tube Present: Bowel Sounds: Recent Bowel Pattern: Constipated Stool Characteristics: Nutritional Diagnosis Nutritional Risk Acuity 2: Chronic Renal Failure Past Medical History: CKD, T2DM, HTN, Hyperlipidemia, Hypokalemia, gout, NSTEMI, CAD, pacemaker, acute renal failure Nutritional Acuity: 2-Moderate Nutrition Diagnosis: Decreased Nutrient Needs Nutrition Etiology: Physiological Causes Nutrition Problem/Etiology/Sym: decreased protein need r/t dx CFK-4 AEB creatininte 2.4. Energy Requirement: 1980 (HB- adj for overwt) Protein Requirement: 54 (.6 gm/kg) Fluid Requirement: 2250 (25 ml/kg) Diet Type: Diabetic Nutrition Intervention: Cont diet as ordered, Encourage intake Drug: Warfarin Do Not Serve Any of the Follow: Broccoli, Brussel Sprouts, Spinach, [place] Lettuce, Cranberry Juice Nutrition Monitoring & Eval Nutrition Goals: Eat 75-100% Meal RD Patient Assessment Time: [address] Assessment Type: RD Assessment Patient Nutrition Acuity: 2-Moderate Follow Up Date: Feb 16, 2018 Nutritional Comment: 02/11 Pt Admitted for knee pain and confusion. Pt reported 190# wt loss to nursing, believe he was confused as his usual wt range on admission for the past 6 months is 195-204#. Pt has dx CK 4, BUN is 42, creatinine 2.4. Alb WNR at 4. Pt on diabetic diet. B raning 72-200. No current intake reported. Goal is to provide adequate but not excessive protein. Will cont to monitor and encourage intake. ADRIENNE SCHOFIELD Feb 11, 2018 12:46
[2018-02-11] MEDS ORDERED: WARFARIN SOD 5 MG TAB PO SCH (13:00)
[2018-02-11] MEDS ORDERED: TRIAMCINOLONE ACE 40 MG/ML VL INJ ONE (13:30)
[2018-02-11] MEDS ORDERED: LIDOCAINE MPF 1% 5 ML VIAL INFIL ONE (13:30)
[2018-02-11 14:35] VITALS: BP 129/66
--- NOTE | 2018-02-11 14:49 | CONSULTATION ---
DATE OF CONSULTATION: February 11, 2018 CHIEF COMPLAINT Right knee pain. HISTORY OF PRESENT ILLNESS This patient is an 82-year-old male who presented to the hospital for inability to ambulate and pain in his right knee. He had an effusion associated with this , and so he was admitted to the medical service by the hospitalist, and the hospitalist contacted me for further evaluation and potential consultation on the right knee for potential drainage and injection into the knee as he has had them in the past, and they have worked fairly well. He said he wanted to go ahead with that today. PAST MEDICAL HISTORY 1. Coronary artery disease. 2. Some kidney failure. 3. Hypertension. 4. Type 2 diabetes. 5. Hyperlipidemia. MEDICATIONS Please see the medicine reconciliation sheet and the current list of medications. ALLERGIES SULFA. SOCIAL HISTORY The patient is usually a community ambulator, but does have a history of problems associated with the knee arthritis. He lives with his . He denies any alcohol or tobacco use. PHYSICAL EXAMINATION GENERAL: The patient is seen in the hospital room in no acute distress, cooperative, and answers all questions appropriately. HEENT: Normocephalic. Extraocular movements intact. NECK: Supple. Trachea midline. CHEST: Rises and falls symmetrically. He has no labored breathing or audible wheezing. NEUROLOGIC: He is able to follow and understand verbal commands. EXTREMITIES: As for the right knee, he does have an effusion associated with the knee with palpable effusion. He has crepitus associated with flexion and extension of the knee. He cannot get it to full extension secondarily due to the tightness in the knee, and he can only flex to about 80 or 90 degrees without a significant amount of pain. He has no signs of varus or valgus instability in his foot. He is able to wiggle the toes, and he has light touch sensation on the valles. His contralateral extremity does have some arthritic changes also, but not as bad as the right side. His skin is otherwise intact on the lower extremities. 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 He is having trouble ambulating and having a significant amount of pain and irritation associated with it, so therefore we talked to him about the treatment options. He would like to do a drainage and then aspiration of the knee with an intraarticular drainage and also an intraarticular steroid injection associated with this. We obtained verbal consent after discussing the risks and benefits associated with the patient, and verbal consent was obtained. PROCEDURE We then cleaned the skin off with alcohol and then inserted an 18-gauge needle on a 60 mL syringe, pulled out about 45 mL of straw colored fluid. There was no obvious infection or turbidity to it. The syringe was then removed off the needle, and then the second syringe was then attached that contained 2 mL of Kenalog 40 mg/mL and some lidocaine, and then injected this back in the knee. It gave him some immediate pain relief, and he said it did feel better. We will allow him to be weightbearing as tolerated associated with this. He is obviously not a great surgical candidate given his medical history for any type of total knee, and so we will hopefully give him some palliative care associated with this. He will contact us if he has any other issues or problems in the future. SASKIA
[2018-02-11] MEDS ORDERED: PATCH REMOVAL 1 EA TOP SCH (21:00)
[2018-02-11] MEDS ORDERED: DOXAZOSIN MESYLATE 2 MG TAB PO SCH (21:00)
[2018-02-11] MEDS ORDERED: SIMVASTATIN 40 MG TAB PO SCH (21:00)
[2018-02-11 21:08] VITALS: BP 175/82
[2018-02-12 00:17] VITALS: BP 109/56
[2018-02-12 03:52] VITALS: BP 128/63
[2018-02-12 06:27] LABS: INR 1.56
[2018-02-12 06:40] LABS: PLATELET COUNT, AUTOMATED 199 K/uL (150-450)
[2018-02-12 07:43] VITALS: BP 154/68
[2018-02-12] MEDS: BENAZEPRIL HCL 20 MG TAB PO SCH (08:04)
[2018-02-12] MEDS: METOPROLOL SUCC XL 50 MG TABCR 50 MG TAB.ER.24H PO SCH (08:05)
[2018-02-12] MEDS: hydrALAZINE HCL 25 MG TAB PO SCH (08:05)
[2018-02-12] MEDS: INSULIN GLARGINE 100 U/ML 3 ML PEN SUBQ SCH (08:06)
[2018-02-12] MEDS: amLODIPine BESYL(*) 5 MG TAB PO SCH (08:06)
[2018-02-12] MEDS: ASPIRIN 81 MG CHEW PO SCH (08:06)
[2018-02-12] MEDS: FAMOTIDINE 20 MG TAB PO SCH (08:06)
[2018-02-12] MEDS: INSULIN HUM LISPRO 100 UN/ML 3 ML VIAL SUBQ PRN (08:07)
[2018-02-12] MEDS: LIDOCAINE 5% PATCH TP SCH (08:08)
[2018-02-12] MEDS ORDERED: ACET-1966 PO (09:03)
[2018-02-12] MEDS ORDERED: LIDO700A19 TP (09:03)
[2018-02-12] MEDS ORDERED: FURO20TA19 PO (09:03)
[2018-02-12] MEDS ORDERED: HYDR50TA35 PO (09:03)
--- NOTE | 2018-02-12 09:23 | Hospitalist Depart ---
Discharge Summary Reason for Hosp/Final Diag: (1) Knee pain, right Status: Acute Hospital Course & Plan: The pain started over 2 week prior to admission after he slipped out of a motorized grocery cart. He wasn't too limited by it, and then it resolved. The pain returned about 10 days prior to admission and hadn' t improved. Tramadol was tried over the last couple of days and that made him confused. The night of admission, he couldn't get out of the bathroom and his was concerned that he was too high risk of falling to be safe at home with the worsening confusion. His labs are at baseline. Knee X-ray from 02/01 had no acute abnormalities, but did show tricompartmental arthritis. He was given Lortab in the ER, which made him more confused. We used APAP and Lidoderm patch for pain. Dr. Cardona did see him and did arthrocentesis with injection of steroids. His joint fluid analysis was consistent with osteoarthritis. His symptoms improved significantly and he was ambulating very well. (2) Confusion Status: Acute Hospital Course & Plan: Secondary to Tramadol and Lortab. We stopped narcotics and his chronic nortriptyline. His mental status returned to his baseline during the day, which is consistent with his chronic dementia. He did have some "sundowning" at nights, especially when his family was not present. His reports that he does function better in his usual surroundings at home. Their son also lives at home with them and helps care for him. She felt comfortable taking him home. I encouraged her to meet with Dr. Wright very soon to discuss their options. (3) HTN (hypertension) Status: Chronic Hospital Course & Plan: Continue chronic Toprol, hydralazine, amlodipine, benazepril. Will hold furosemide for now, until they can meet with Dr. Fernandes. (4) Diabetes type 2, controlled Status: Chronic Hospital Course & Plan: Continue Lantus 27 units a day and mealtime Novolog. Follow up with Dr. Wright. (5) BPH (benign prostatic hyperplasia) Status: Chronic Hospital Course & Plan: Continue doxazosin. (6) CAD (coronary artery disease) Status: Chronic Hospital Course & Plan: Continue ASA and simvastatin. (7) Atrial fibrillation Status: Chronic Hospital Course & Plan: He is paced. He is also on warfarin, which will be continued. Follow up INR with Dr. Wright. (8) Pacemaker Status: Chronic (9) Chronic kidney disease (CKD) stage G4/A1, severely decreased glomerular filtration rate (GFR) between 15-29 mL/min/1.73 square meter and albuminuria creatinine ratio less than 30 mg/g Status: Chronic Hospital Course & Plan: His baseline creatinine has been in the 2.4-2.5 range ( 2.6 at time of discharge). We did hold his Lasix as noted above. He will need close follow up on his lab as an outpatient. Departure Weight (Pounds): 199 Weight (Ounces): 8.0 Result Diagram: 02/12/18 0502/12/18 05 Item Value Date Time Sodium Level 140 mmol/L 02/10/18 2229 Potassium Level 4.2 mmol/L 02/10/18 2229 Chloride Level 107 mmol/L 02/10/18 2229 Carbon Dioxide Level 23 mmol/L 02/10/18 2229 Blood Urea Nitrogen 42 mg/dl H 02/10/18 2229 Creatinine 2.40 mg/dl H 02/10/18 2229 Glomerular Filtration Rate Calc 26.0 02/10/18 2229 Random Glucose 72 mg/dl L 02/10/18 2229 Uric Acid 7.6 mg/dl 02/10/18 2229 Calcium Level 9.7 mg/dl 02/10/18 2229 Total Bilirubin 0.4 mg/dl 02/10/18 2229 Aspartate Amino Transf (AST/SGOT) 23 U/L 02/10/18 2229 Alanine Aminotransferase (ALT/SGPT) 18 U/L 02/10/18 2229 Alkaline Phosphatase 50 U/L 02/10/18 2229 C-Reactive Protein 0.7 mg/dl 02/10/18 2229 Total Protein 6.8 g/dl 02/10/18 2229 Albumin 4.0 g/dl 02/10/18 2229 Prothrombin Time 22.3 seconds H 02/11/18 0000 Prothromb Time International Ratio 1.92 02/11/18 0000 Prothrombin Time 18.9 seconds H 02/12/18 0547 Prothromb Time International Ratio 1.56 02/12/18 0547 White Blood Count 6.6 k/uL 8/17/18 2229 Hemoglobin 14.6 g/dL 02/10/182228 Hematocrit 43.7 % 02/10/182228 Platelet Count 215 K/uL 02/10/182228 Erythrocyte Sedimentation Rate 26 mm/HOUR H 02/10/182228 Body Fluid WBC 755 02/11/18 0000 Body Fluid RBC 2721 02/11/18 0000 Body Fluid Neutrophils 93 % 02/11/18 0000 Body Fluid Lymphocytes 7 % 02/11/18 0000 [facility] *LIVE* [address] [facility] [address] SERJIO ALONZO M.D., DIRECTOR OF LABORATORY SERVICES ANNABELLE SAMS M.D., PATHOLOGIST RUN DATE: 02/11/18 Specimen Inquiry Report PAGE 1 RUN TIME: 1436 PATIENT: KATHYA BRYAN ACCT: [id number] LOC: MED U : [id number] AGE/SX: 82/M ROOM: [facility] REG : 02/11/[address]: ALBINO VALDEZ MD : 1935 BED: 273 DIS : STATUS: ADM IN TLOC: SPEC #: [id number] NICOLETTE: 02/11/18-UNK STATUS: RES REQ #: [id number] RECD: 02/11/18-[address]: PHYLICIA LOWRY MD SOURCE: KNEE FLUID ENTR: 02/11/18-[address] [facility] [address]: MIGUEL ANGEL WRIGHT DO SPDESC: RIGHT ALBINO VALDEZ MD ORDERED: GIAN ERNANDEZ A/A/AIDEN COMMENTS: Has specimen been collected/obtained? Y Procedure Result Verified GRAM STAIN Preliminary 02/11/18-1436 RARE WHITE BLOOD CELLS NO ORGANISMS SEEN CULTURE BODY FLUID PENDING ANAEROBE CULTURE PENDING Condition: Improved Discharge: Home, Self Care Follow-Up Labs: INR, Other (BMP with Dr. Wright in next 3-5 days) Time Spent: > 30 min Discharge Instructions Home Meds Active Scripts Lidocaine (Lidocaine) 5 % Adh..patch, 1 EACH TP QDAY for 10 Days, #10 PATCH 1 Refill Prov:TORRI LOWRY MD 02/12/18 Hydralazine Hcl (HYDRALAZINE HCL) 50 Mg Tablet, 50 MG PO BID, #60 TAB Prov:TORRI LOWRY MD 02/12/18 Furosemide (LASIX) 20 Mg Tablet, 1 TAB PO QDAY for 30 Days, TAB DO NOT take until discuss with Dr. Wright Prov:TORRI LOWRY MD 02/12/18 Acetaminophen (TYLENOL) 325 Mg Tablet, 325 MG PO Q6H Y for PAIN MDD 4000mg for 30 Days, TAB Prov:TORRI LOWRY MD 02/12/18 Warfarin Sodium (COUMADIN) 5 Mg Tablet, 5 MG PO QDAY@13, #30 TAB Prov:ILENETAURUS ROLDAN 11/01/17 Aspirin (ASPIRIN) 81 Mg Tab.chew, 81 MG PO QDAY, #30 TAB.CHEW 10 Refills Prov:JENN PARKINSON MD FACP 08/30/15 Reported Medications Triamcinolone Acetonide 0.1% Cr 15 Gm Tube (TRIAMCINOLONE ACETONIDE 0.1% CREAM) 15 Gm Cream..g., TP BID, TUBE 02/10/18 Simvastatin (SIMVASTATIN) 40 Mg Tablet, 40 MG PO HS, TAB 02/10/18 Insulin Glargine 100 Un/Ml Pen (LANTUS SOLOSTAR PEN) 100 Unit/1 Ml Insuln.pen, 27 UNIT SQ QDAY, ML 02/10/18 Doxazosin Mesylate (DOXAZOSIN MESYLATE) 8 Mg Tablet, 8 MG PO HS 02/10/18 Amlodipine Besylate (AMLODIPINE BESYLATE) 10 Mg Tablet, 1 TAB PO QDAY, TAB 02/10/18 Insulin Aspart 100 Un/Ml Pen (NOVOLOG FLEXPEN) 100 Unit/1 Ml Insuln.pen, 4 UNIT SQ TID, ML 11/01/17 Nitroglycerin (NITROSTAT) 0.4 Mg Subl, 0.4 MG SL Q5MIN 11/01/17 Clobetasol Propionate/Emoll (CLOBETASOL EMOLLIENT 0.05% CRM) 15 Gm Cream..g., 0 TP BID 11/01/17 Calcitriol (CALCITRIOL) 0.25 Mcg Cap, 0.25 MCG FT 5 times a week, CAP 11/01/17 Benazepril Hcl (BENAZEPRIL HCL) 40 Mg Tablet, 40 MG PO BID, TAB 11/01/17 Metoprolol Succinate (TOPROL XL) 100 Mg Tab.er.24h, 1 TAB PO QDAY, TAB 08/13/16 Famotidine (FAMOTIDINE) 20 Mg Tablet, 20 MG PO QDAY, TAB 06/08/16 Oxygen (OXYGEN) 2 L Inha, 2 L INH HS Y for SEE COMMENT, L 12/06/14 Discontinued Reported Medications Nortriptyline Hcl (NORTRIPTYLINE HCL) 10 Mg Cap, 10 MG PO QDAY, CAP 02/10/18 Hydralazine Hcl (HYDRALAZINE HCL) 50 Mg Tablet, 50 MG PO BID, TAB 08/13/16 Insulin Glargine,Hum.rec.anlog (Basaglar Kwikpen U-100) 100 Unit/Ml (3 Ml) Insuln.pen, 35 QHS 10/30/17 Discontinued Scripts Enoxaparin Sodium (ENOXAPARIN SODIUM) 40 Mg/0.4 Ml Disp.syrin, 40 MG SQ DAILY, # 2 SYR Prov:TAURUS ODOM DO 11/01/17 Follow up Referrals: Family Practice @ [facility] with Miguel Angel Wright Do Diet: Diabetic, No Added Salt (JASE) Activity: As Tolerated, With Walker (as needed) Special Instructions: Follow up with Dr. Wright in next 3-5 days or sooner if any problems. Copies to: MIGUEL ANGEL WRIGHT DO Venous Thromboembolism Antithrombotics Is Pt On Any Antithrombotics?: Yes Problem Qualifiers (1) Knee pain, right: Chronicity: chronic Qualified Codes: M25.561 - Pain in right knee; G89.29 - Other chronic pain TORRI LOWRY MD Feb 12, 2018 09:23
== END 2018-02-12 10:00 | disposition home or self-care (01) ==
LOC: ER 21:39 → INTOOBSV 02-11 00:32 → MED 02-11 00:32
PROVIDERS: ADMIT Internal Medicine; ATTEND Internal Medicine
DX: M25.561 Pain in right knee (principal); I12.9 Hypertensive chronic kidney disease with stage 1 through stage 4 chronic kidney disease, or unspecified chronic kidney disease; E11.22 Type 2 diabetes mellitus with diabetic chronic kidney disease; N18.4 Chronic kidney disease, stage 4 (severe); R41.0 Disorientation, unspecified; I48.2 Chronic atrial fibrillation; Z79.01 Long term (current) use of anticoagulants; I25.10 Atherosclerotic heart disease of native coronary artery without angina pectoris; Z95.0 Presence of cardiac pacemaker; N40.0 Benign prostatic hyperplasia without lower urinary tract symptoms; E78.5 Hyperlipidemia, unspecified
CPT/HCPCS: 20610; 36415; 36416; 82948; 84550; 85025; 85610; 85651; 86140; 87071; 87073; 87205; 89050; 97161; 99283; A9270; G0378; J1815; J2001; J3301; 82040; 82247; 82310; 82374; 82435; 82565; 82947; 84075; 84132; 84155; 84295; 84450; 84460; 84520; 99284

== ENCOUNTER → 2018-02-10 | Outpatient (CLI) | payer MEDICARE, BC ==
[~2018-02-10] MED LIST changes: -CAL25 FT; +CAL25 PO; +DOXA8TAB11 PO; +FURO20TA19 PO; +LIDO700A19 TP; +TRIA15CR40 TP
[2018-02-11 12:35] VITALS: BMI 27.0
== END ==
LOC: AMB 21:15
PROVIDERS: ATTEND Nurse Practitioner
DX: M25.561 Pain in right knee (principal); M54.9 Dorsalgia, unspecified; G89.29 Other chronic pain
CPT/HCPCS: A0425; A0427

== ENCOUNTER 2018-02-14 03:36 | Emergency (ER) | payer MEDICARE, BC ==
[2018-02-11 12:35] VITALS: Wt 90.5 kg
[2018-02-14] MEDS ORDERED: NS(*) 0.9% 1000 ML BAG 1,000 ML IV ONE (03:41)
--- NOTE | 2018-02-14 03:41 | ER Report ---
History and Physical Time Seen By MD: 03:41 HPI/ROS CHIEF COMPLAINT: Elderly fall, open left ankle fracture dislocation HISTORY OF PRESENT ILLNESS: 82-year-old male with a history of A. fib on warfarin, chronic kidney failure, patient was recently admitted with arthritis in his right knee. He is status post total left knee replacement. Tonight he fell in his bathroom without evidence syncope or fainting. He twisted his left ankle on arrival. He has an open, obviously dislocated left ankle. The bottom of the tibia is visualized. The ankle is unroofed from the mortise. She notes he hit his head when he fell backwards in the bathroom. He is on warfarin. She denies back pain, chest pain, shortness of breath or pelvic pain. REVIEW OF SYSTEMS: Respiratory: No cough, no dyspnea. Cardiovascular: No chest pain, no palpitations. Gastrointestinal: No vomiting, no abdominal pain. Musculoskeletal: No back pain. Allergies: Coded Allergies: No Known Drug Allergies (Unverified , 02/14/18) Home Meds Active Scripts Lidocaine (Lidocaine) 5 % Adh..patch, 1 EACH TP QDAY for 10 Days, #10 PATCH 1 Refill Prov:TORRI LOWRY MD 02/12/18 Hydralazine Hcl (HYDRALAZINE HCL) 50 Mg Tablet, 50 MG PO BID, #60 TAB Prov:TORRI LOWRY MD 02/12/18 Furosemide (LASIX) 20 Mg Tablet, 1 TAB PO QDAY for 30 Days, TAB DO NOT take until discuss with Dr. Wright Prov:TRORI LOWRY MD 02/12/18 Acetaminophen (TYLENOL) 325 Mg Tablet, 325 MG PO Q6H PRN for PAIN MDD 4000mg for 30 Days, TAB Prov:TORRI LOWRY MD 02/12/18 Warfarin Sodium (COUMADIN) 5 Mg Tablet, 5 MG PO QDAY@13, #30 TAB Prov:TAURUS ODOM DO 11/01/17 Aspirin (ASPIRIN) 81 Mg Tab.chew, 81 MG PO QDAY, #30 TAB.CHEW 10 Refills Prov:JENN PARKINSON MD FACP 08/30/15 Reported Medications Triamcinolone Acetonide 0.1% Cr 15 Gm Tube (TRIAMCINOLONE ACETONIDE 0.1% CREAM) 15 Gm Cream..g., TP BID, TUBE 02/10/18 Simvastatin (SIMVASTATIN) 40 Mg Tablet, 40 MG PO HS, TAB 02/10/18 Insulin Glargine 100 Un/Ml Pen (LANTUS SOLOSTAR PEN) 100 Unit/1 Ml Insuln.pen, 27 UNIT SQ QDAY, ML 02/10/18 Doxazosin Mesylate (DOXAZOSIN MESYLATE) 8 Mg Tablet, 8 MG PO HS 02/10/18 Amlodipine Besylate (AMLODIPINE BESYLATE) 10 Mg Tablet, 1 TAB PO QDAY, TAB 02/10/18 Insulin Aspart 100 Un/Ml Pen (NOVOLOG FLEXPEN) 100 Unit/1 Ml Insuln.pen, 4 UNIT SQ TID, ML 11/01/17 Nitroglycerin (NITROSTAT) 0.4 Mg Subl, 0.4 MG SL Q5MIN 11/01/17 Clobetasol Propionate/Emoll (CLOBETASOL EMOLLIENT 0.05% CRM) 15 Gm Cream..g., 0 TP BID 11/01/17 Calcitriol (CALCITRIOL) 0.25 Mcg Cap, 0.25 MCG FT 5 times a week, CAP 11/01/17 Benazepril Hcl (BENAZEPRIL HCL) 40 Mg Tablet, 40 MG PO BID, TAB 11/01/17 Metoprolol Succinate (TOPROL XL) 100 Mg Tab.er.24h, 1 TAB PO QDAY, TAB 08/13/16 Famotidine (FAMOTIDINE) 20 Mg Tablet, 20 MG PO QDAY, TAB 06/08/16 Oxygen (OXYGEN) 2 L Inha, 2 L INH HS PRN for SEE COMMENT, L 12/06/14 Discontinued Reported Medications Nortriptyline Hcl (NORTRIPTYLINE HCL) 10 Mg Cap, 10 MG PO QDAY, CAP 02/10/18 Hydralazine Hcl (HYDRALAZINE HCL) 50 Mg Tablet, 50 MG PO BID, TAB 08/13/16 Insulin Glargine,Hum.rec.anlog (Basaglar Kwikpen U-100) 100 Unit/Ml (3 Ml) Insuln.pen, 35 QHS 10/30/17 Discontinued Scripts Enoxaparin Sodium (ENOXAPARIN SODIUM) 40 Mg/0.4 Ml Disp.syrin, 40 MG SQ DAILY, #2 SYR Prov:TAURUS ODOM DO 11/01/17 Past Medical/Surgical History Right knee pain due to osteoarthritis status post arthrocentesis, and recent steroid injection for admission 2 days ago confusion on tramadol and Lortab, hypertension, type II diabetes, BPH, coronary artery disease, atrial fibrill ation on warfarin, pacemaker, chronic stage IV kidney disease. Past surgical history, total left knee replacement Reviewed Nurses Notes: Yes Old Medical Records Reviewed: Yes Hx Smoking: Yes (Quit 65 Years Ago) Smoking Status: Former Smoker Exposure to Second Hand Smoke?: No Hx Substance Use Disorder: No Hx Alcohol Use: Yes (Yes beer & Gin) Constitutional Vital Sign - Last 24 Hours 02/14/18 02/14/18 02/14/18 02/14/18 03:38 03:41 04:00 04:06 Temp 98.7 Pulse 60 60 Resp 16 7 B/P (MAP) 134/98 134/98 (110) 159/90 (113) Pulse Ox 98 88 O2 Delivery Room Air 02/14/18 02/14/18 02/14/18 02/14/18 04:17 04:21 04:30 04:35 Pulse 60 60 Resp 19 26 B/P (MAP) 180/89 (119) Pulse Ox 96 97 O2 Flow Rate 3.0 02/14/18 02/14/18 02/14/18 02/14/18 04:50 05:05 05:10 05:25 Pulse 67 60 60 Resp 21 19 27 Pulse Ox 97 96 98 98 02/14/18 02/14/18 02/14/18 02/14/18 05:30 05:40 05:45 06:00 Pulse 60 60 60 Resp 19 22 19 B/P (MAP) 163/80 (107) 159/85 (109) Pulse Ox 95 95 99 02/14/18 02/14/18 02/14/18 02/14/18 06:15 06:30 06:35 06:50 Pulse 60 60 60 60 Resp 15 7 18 25 B/P (MAP) 179/87 (117) Pulse Ox 98 98 98 97 02/14/18 02/14/18 07:00 07:05 Pulse 60 Resp 7 B/P (MAP) 182/112 (135) Pulse Ox 95 Physical Exam General Appearance: The patient is alert, has no immediate need for airway protection and no current signs of toxicity. Palpation of the head and neck reveal no tenderness or trauma HEENT: Pupils equal and round no injection. TMs normal, oropharynx without redness or exudate, mucous. Membranes are moist, no dental trauma Respiratory: Chest is non tender, lungs are clear to auscultation. No chest wall tenderness Cardiac: Irregular rate and rhythm Gastrointestinal: Abdomen is soft and non tender, no masses, bowel sounds normal. Musculoskeletal: Neck: Neck is supple and non tender. No tenderness in the midline Extremities have full range of motion and are non tender. There is obvious dislocation and deformity of the left ankle. The talus is completely dislocated off at the base of the tibia. The foot has good capillary refill. No pulses were appreciated Skin: No rashes or lesions., Large open wound on left medial ankle DIFFERENTIAL DIAGNOSIS: After history and physical exam differential diagnosis was considered for fall in the elderly including but not limited to intracranial injury, long bone and pelvic bone fracture, spinal injury, and intrathoracic injury. Medical Decision Making Data Points Result Diagram: 02/14/18 0401 02/14/18 0401 Laboratory Hematology Test 02/14/18 04:01 02/14/18 04:05 Red Blood Count 4.77 M/uL (4.00-5.60) Mean Corpuscular Volume 87.6 fL (80.0-96.0) Mean Corpuscular Hemoglobin 29.1 pg (26.0-33.0) Mean Corpuscular Hemoglobin Concent 33.2 g/dL (32.0-36.0) Red Cell Distribution Width 15.4 % (11.5-14.5) Mean Platelet Volume 8.4 fL (7.2-11.1) Neutrophils (%) (Auto) 85.7 % (39.4-72.5) Lymphocytes (%) (Auto) 9.0 % (17.6-49.6) Monocytes (%) (Auto) 5.1 % (4.1-12.4) Eosinophils (%) (Auto) 0.0 % (0.4-6.7) Basophils (%) (Auto) 0.2 % (0.3-1.4) Nucleated RBC Relative Count (auto) 0.0 /100WBC Neutrophils # (Auto) 5.8 K/uL (2.0-7.4) Lymphocytes # (Auto) 0.6 K/uL (1.3-3.6) Monocytes # (Auto) 0.3 K/uL (0.3-1.0) Eosinophils # (Auto) 0.0 K/uL (0.0-0.5) Basophils # (Auto) 0.0 K/uL (0.0-0.1) Nucleated RBC Absolute Count (auto) 0.00 K/uL Prothrombin Time 22.2 seconds (12.0-14.4) Prothromb Time International Ratio 1.91 Activated Partial Thromboplast Time 32 seconds (23-35) Sodium Level 139 mmol/L (137-145) Potassium Level 4.7 mmol/L (3.5-5.0) Chloride Level 106 mmol/L (98-107) Carbon Dioxide Level 23 mmol/L (22-30) Blood Urea Nitrogen 76 mg/dl (9-21) Creatinine 2.80 mg/dl (0.66-1.25) Glomerular Filtration Rate Calc 21.7 Random Glucose 190 mg/dl (75-110) Lactate 1.1 mmol/L (0.7-2.1) Calcium Level 9.8 mg/dl (8.4-10.2) Total Bilirubin 0.3 mg/dl (0.2-1.3) Aspartate Amino Transf (AST/SGOT) 21 U/L (0-35) Alanine Aminotransferase (ALT/SGPT) 22 U/L (0-56) Alkaline Phosphatase 41 U/L (0-126) Total Protein 5.8 g/dl (6.3-8.2) Albumin 3.4 g/dl (3.5-5.0) Serum Alcohol < 10 mg/dl Urine Color Straw Urine Clarity Clear Urine pH 5.0 pH (4.8-9.5) Urine Specific [place] 1.014 Urine Protein 100 mg/dL (NEGATIVE) Urine Glucose (UA) 50 mg/dL (NEGATIVE) Urine Ketones Negative mg/dL (NEGATIVE) Urine Blood Negative (NEGATIVE) Urine Nitrite Negative (NEGATIVE) Urine Bilirubin Negative (NEGATIVE) Urine Urobilinogen Negative mg/dL (0.2-1.9) Urine Leukocyte Esterase Negative (NEGATIVE) Urine RBC 2 /HPF (0-2/HPF) Urine WBC None /HPF (0-5/HPF) Urine Squamous Epithelial Cells None /LPF (NONE-FEW) Urine Bacteria Negative /HPF (NONE-FEW) Urine Mucus None /HPF (NONE-FEW) Urine Opiates Screen Negative Urine Barbiturates Screen Negative Ur Tricyclic Antidepressants Screen Negative Urine Phencyclidine Screen Negative Urine Amphetamines Screen Negative Urine Benzodiazepines Screen Negative Urine Cocaine Screen Negative Urine Cannabinoids Screen Negative Chemistry Test 02/14/18 04:01 02/14/18 04:05 White Blood Count 6.8 k/uL (4.5-11.0) Red Blood Count 4.77 M/uL (4.00-5.60) Hemoglobin 13.9 g/dL (14.0-18.0) Hematocrit 41.8 % (42.0-52.0) Mean Corpuscular Volume 87.6 fL (80.0-96.0) Mean Corpuscular Hemoglobin 29.1 pg (26.0-33.0) Mean Corpuscular Hemoglobin Concent 33.2 g/dL (32.0-36.0) Red Cell Distribution Width 15.4 % (11.5-14.5) Platelet Count 224 K/uL (150-450) Mean Platelet Volume 8.4 fL (7.2-11.1) Neutrophils (%) (Auto) 85.7 % (39.4-72.5) Lymphocytes (%) (Auto) 9.0 % (17.6-49.6) Monocytes (%) (Auto) 5.1 % (4.1-12.4) Eosinophils (%) (Auto) 0.0 % (0.4-6.7) Basophils (%) (Auto) 0.2 % (0.3-1.4) Nucleated RBC Relative Count (auto) 0.0 /100WBC Neutrophils # (Auto) 5.8 K/uL (2.0-7.4) Lymphocytes # (Auto) 0.6 K/uL (1.3-3.6) Monocytes # (Auto) 0.3 K/uL (0.3-1.0) Eosinophils # (Auto) 0.0 K/uL (0.0-0.5) Basophils # (Auto) 0.0 K/uL (0.0-0.1) Nucleated RBC Absolute Count (auto) 0.00 K/uL Prothrombin Time 22.2 seconds (12.0-14.4) Prothromb Time International Ratio 1.91 Activated Partial Thromboplast Time 32 seconds (23-35) Glomerular Filtration Rate Calc 21.7 Lactate 1.1 mmol/L (0.7-2.1) Calcium Level 9.8 mg/dl (8.4-10.2) Total Bilirubin 0.3 mg/dl (0.2-1.3) Aspartate Amino Transf (AST/SGOT) 21 U/L (0-35) Alanine Aminotransferase (ALT/SGPT) 22 U/L (0-56) Alkaline Phosphatase 41 U/L (0-126) Total Protein 5.8 g/dl (6.3-8.2) Albumin 3.4 g/dl (3.5-5.0) Serum Alcohol < 10 mg/dl Urine Color Straw Urine Clarity Clear Urine pH 5.0 pH (4.8-9.5) Urine Specific [place] 1.014 Urine Protein 100 mg/dL (NEGATIVE) Urine Glucose (UA) 50 mg/dL (NEGATIVE) Urine Ketones Negative mg/dL (NEGATIVE) Urine Blood Negative (NEGATIVE) Urine Nitrite Negative (NEGATIVE) Urine Bilirubin Negative (NEGATIVE) Urine Urobilinogen Negative mg/dL (0.2-1.9) Urine Leukocyte Esterase Negative (NEGATIVE) Urine RBC 2 /HPF (0-2/HPF) Urine WBC None /HPF (0-5/HPF) Urine Squamous Epithelial Cells None /LPF (NONE-FEW) Urine Bacteria Negative /HPF (NONE-FEW) Urine Mucus None /HPF (NONE-FEW) Urine Opiates Screen Negative Urine Barbiturates Screen Negative Ur Tricyclic Antidepressants Screen Negative Urine Phencyclidine Screen Negative Urine Amphetamines Screen Negative Urine Benzodiazepines Screen Negative Urine Cocaine Screen Negative Urine Cannabinoids Screen Negative Coagulation Test 02/14/18 04:01 Prothrombin Time 22.2 seconds Prothromb Time International Ratio 1.91 Activated Partial Thromboplast Time 32 seconds Toxicology Test 02/14/18 04:01 02/14/18 04:05 Serum Alcohol < 10 mg/dl Urine Opiates Screen Negative Urine Barbiturates Screen Negative Ur Tricyclic Antidepressants Screen Negative Urine Phencyclidine Screen Negative Urine Amphetamines Screen Negative Urine Benzodiazepines Screen Negative Urine Cocaine Screen Negative Urine Cannabinoids Screen Negative Urinalysis Test 02/14/18 04:05 Urine Color Straw Urine Clarity Clear Urine pH 5.0 pH (4.8-9.5) Urine Specific [place] 1.014 Urine Protein 100 mg/dL (NEGATIVE) Urine Glucose (UA) 50 mg/dL (NEGATIVE) Urine Ketones Negative mg/dL (NEGATIVE) Urine Blood Negative (NEGATIVE) Urine Nitrite Negative (NEGATIVE) Urine Bilirubin Negative (NEGATIVE) Urine Urobilinogen Negative mg/dL (0.2-1.9) Urine Leukocyte Esterase Negative (NEGATIVE) Urine RBC 2 /HPF (0-2/HPF) Urine WBC None /HPF (0-5/HPF) Urine Squamous Epithelial Cells None /LPF (NONE-FEW) Urine Bacteria Negative /HPF (NONE-FEW) Urine Mucus None /HPF (NONE-FEW) EKG/Imaging EKG Interpretation 12 lead EK Rhythm: Atrial fibrillation rate 60 bpm [place]: normal QRS: Nonspecific interventricular block ST segments: Nonspecific changes, comparison to previous EKG dated 11/07/17, doubt significantly changed Imaging X-ray: Left tib-fib, 2 views was obtained. I viewed the images myself on the PACS system. My interpretation of the images is: Ankle dislocation with open fracture, total knee replacement. The radiologist interpretation had no clinically significant variation from this interpretation. X-ray: Single view portable chest x-ray was obtained. I viewed the images myself on the PACS system. My interpretation of the images is: Cardiomegaly, no infiltrate or effusion, pacemaker in place with intact wires, comparison to previous chest film 11/07/17, no significant change. The radiologist interpretation had no clinically significant variation from this interpretation. X-ray: Single view pelvis was obtained. I viewed the images myself on the PACS system. My interpretation of the images is: No fracture no dislocation or malalignment. The radiologist interpretation had no clinically significant variation from this interpretation. X-ray: Postreduction two-view tib-fib was obtained. I viewed the images myself on the PACS system. My interpretation of the images is: There is interval reduction of the ankle dislocation. 2 Fractures are still noted. The radiologist interpretation had no clinically significant variation from this interpretation. Results: CT scan of the head and cervical spine without contrast was obtained. The results of the study are CT Head without contrast and CT Cervical spine: Indication: TRAUMA Comparison: Head CT 09/07/2017 Technique: CT head: Axial CT images were obtained through the brain from the skull base to the vertex without administration of IV contrast. Reformatted coronal and sagittal images were also obtained. Technique: CT cervical spine: Axial CT imaging of the cervical spine was performed. 2-D sagittal and coronal CT reformats were also obtained. One of the following dose optimization techniques was utilized in the performance of this exam: Automated exposure control; adjustment of the mA and/or kV according to the patient's size; or use of an iterative reconstruction technique. Specific details can be referenced in the facility's radiology CT exam operational policy. FINDINGS: CT head: No evidence of mass, mass effect, or midline shift. No acute intracranial hemorrhage or acute territorial infarction. Bilateral small remote lacunar infarcts are unchanged. Small amount of additional scattered white matter hypoattenuation likely related to chronic small vessel ischemic disease, unchanged. Skull is nonacute. Bilateral lens surgeries. The visualized paranasal sinuses and mastoid air spaces are clear. Scattered intravenous air noted, consistent with IV access. CT cervical spine: No acute abnormality of cervical vertebral body height and alignment. No cervical spine fracture. There is no prevertebral soft tissue thickening. Mild multilevel spondylosis, with prominent multilevel ligamentum flavum calcification. Intravenous area related to cardiac cysts noted. Thyroid is heterogeneous. Remaining visualized cervical soft tissues are unremarkable. The airway is patent. Incompletely imaged left subclavian central venous catheter. IMPRESSION: 1. No acute intracranial abnormality. Small remote lacunar infarcts and mild chronic ischemic disease as previously seen. 2. No acute osseous abnormality of the cervical spine. The study was read by the radiologist. I viewed the images myself on the PACS system. ED Course/Re-evaluation Clinical Indication for ER IV: Hydration, IV Access ED Course Patient was admitted to an examination room. H&P was done. The differential diagnoses was considered. On clinical examination. Patient has obvious open his location fracture of his left ankle. Trauma evaluation was performed. Chest x-ray was unremarkable, pelvis x-ray was unremarkable. Patient is 2nd line established in his left arm. Diagnostic laboratory studies were sent off. Patient was given Zofran. A tetanus booster and fentanyl 50 g IV. He had hypoxia at this point. He was stimulated and placed on increased oxygen flow. His external rotation. Left ankle dislocation was reduced with traction and angulation after the open fragments were cleansed with saline and Hibiclens. A pulse was palpable over the dorsalis pedis area. A dressing was placed over the open wound on the medial aspect of the ankle. Patient was then placed in a posterior splint to stabilize his fractures. An EKG was performed which shows atrial flutter with nonspecific and ventricular block. Comparison to previous EKG shows no significant changes. Patient was given 2 g of Ancef IV. 02/14/2018 5:49:05 am case discussed with Dr. Norberto Cade orthopedist on- call, who is willing to do. The patient's surgery but advises that case be discussed with anesthesia. 02/14/2018 6:07:56 am case discussed with Anesthesia. . He advises that the patient be transferred to facility with a higher capability since this patient has numerous complex medical problems. Anesthesia would be high risk. 02/14/2018 6:18:38 am case was discussed with Dr. Holley trauma surgeon and Dr. Banegas orthopedics who accepts the patient to [facility] [place]. They would like the patient to go to the ER. 02/14/2018 6:23:09 am brief report and heads-up was given to Dr. Bronson ER attending at [facility] [place]. Decision to Disposition Date: Feb 14, 2018 Decision to Disposition Time: 04:38 Critical Care Time I spent a total of 90 minutes of critical care time in obtaining history, performing a physical exam, bedside monitoring of interventions, collecting and interpreting tests and discussion with consultants but not including time spent performing procedures. Depart Departure Latest Vital Signs Vital Signs Date Time Temp Pulse Resp B/P (MAP) Pulse Ox O2 Delivery O2 Flow Rate FiO2 02/14/18 07:05 60 7 95 02/14/18 07:00 182/112 (135) 02/14/18 04:17 3.0 02/14/18 03:38 98.7 Room Air Impression: Primary Impression: Open dislocation of left ankle Additional Impressions: Atrial fibrillation Arthritis of right knee Chronic kidney disease Type II diabetes mellitus Condition: Improved Disposition: XFER TO ACUTE CARE HOSPITAL Referrals: ERROL WRIGHT DO (PCP) Problem Qualifiers Primary Impression: Open dislocation of left ankle Encounter type: initial encounter Qualified Codes: S93.05XA - Dislocation of left ankle joint, initial encounter; S91.002A - Unspecified open wound, left ankle, initial encounter Additional Impressions: Atrial fibrillation Atrial fibrillation type: chronic Qualified Codes: I48.2 - Chronic atrial fibrillation Chronic kidney disease Chronic kidney disease stage: stage 4 (severe) Qualified Codes: N18.4 - Chronic kidney disease, stage 4 (severe) Type II diabetes mellitus Diabetes mellitus manager intermediate insulin use: without alf use Diabetes mellitus complication status: without complication Qualified Codes: E11.9 - Type 2 diabetes mellitus without complications KOJO CRAWFORD DO Feb 14, 2018 03:41
[2018-02-14] MEDS ORDERED: ONDANSETRON 4 MG/2 ML VIAL IVP ONE (03:45)
[2018-02-14] MEDS ORDERED: DIPHTH/TETANUS/ACEL. PERTUSSIS IM ONE (03:45)
[2018-02-14] MEDS ORDERED: ceFAZolin(*) 2GM/D5W 50ML 50 ML IVPB ONE (03:50)
[2018-02-14] MEDS ORDERED: fentaNYL CITR 100 MCG/2 ML AMP IVP ONE ×3 (03:50→06:55)
[2018-02-14 04:10] LABS: PLATELET COUNT, AUTOMATED 224 K/uL (150-450)
[2018-02-14 04:17] LABS: INR 1.91
--- NOTE | 2018-02-14 04:22 | RADIOLOGY IMAGING REPORT ---
FACILITY: [facility] [place] PATIENT NAME: Pawel Azul : 1935 MR: [id number] V: [id number] EXAM DATE: ORDERING PHYSICIAN: KOJO CRAWFORD TECHNOLOGIST: Location: [facility] Patient: Pawel Azul : 1935 Visit/Account:[id number] Date of Sevice: 02/14/2018 INDICATION: Fall, open fracture. EXAM DATE: 02/14/2018 3:45 AM COMPARISON: None. FINDINGS: AP and lateral views of the left tibia and fibula. Mineralization is low. There is an acute open fra cture of the ankle, with markedly disc placed trimalleolar fractures and lateral dislocation of the t alus an remainder of the foot in relation to the distal tibia. Revision total knee arthroplasty in place with no apparent acute complication, though the femoral component is incompletely imaged. Vasc ular calcifications. IMPRESSION: Open fracture dislocation of the left tibia and fibula. Report Dictated By: Felipe Dasilav MD at 02/14/2018 4:14 AM Report E-Signed By: Felipe Dasilva MD at 02/14/2018 4:19 AM WSN:[id number]
--- NOTE | 2018-02-14 04:42 | EKG ---
FACILITY: [facility] PATIENT NAME: KATHYA BRYAN : [id number] MR: [id number] V: [id number] EXAM DATE: ORDERING PHYSICIAN: KOJO CRAWFORD TECHNOLOGIST: CICI Murphy Reason : CARDIAC Blood Pressure : / mmHG Vent. Rate : 060 BPM Atrial Rate : 267 BPM P-R Int : 000 ms QRS Dur : 158 ms QT Int : 478 ms P-R-T Axes : 000 -60 099 degrees QTc Int : 478 ms Atrial flutter Nonspecific intraventricular block Abnormal ECG When compared with ECG of 07-NOV-2017 02:17, No significant change was found Confirmed by Philipp Lindsey ([id number]) on 02/14/2018 7:38:18 AM Referred By: Confirmed By:Philipp Barfield
--- NOTE | 2018-02-14 04:49 | RADIOLOGY IMAGING REPORT ---
FACILITY: [facility] [place] PATIENT NAME: Pawel Azul : 1935 MR: [id number] V: [id number] EXAM DATE: ORDERING PHYSICIAN: KOJO CRAWFORD TECHNOLOGIST: Location: [facility] [place] Patient: Pawel Azul : 1935 Visit/Account:[id number] Date of Sevice: 02/14/2018 INDICATION: preop open L ankle fx. Trauma DATE: 02/14/2018 4:44 AM. TECHNIQUE: CHEST SINGLE AP COMPARISON: Chest radiograph November 07, 2017 FINDINGS: The cardiac silhouette is chronically enlarged. A left chest ICD is noted. No apparent pneu mothorax on this supine view. The lungs are adequately expanded. IMPRESSION: No acute findings on this supine view. Report Dictated By: Del Neely MD at 02/14/2018 4:44 AM Report E-Signed By: Del Neely MD at 02/14/2018 4:46 AM WSN:[id number]
--- NOTE | 2018-02-14 04:52 | RADIOLOGY IMAGING REPORT ---
FACILITY: [facility] [place] PATIENT NAME: Pawel Azul : 1935 MR: [id number] V: [id number] EXAM DATE: ORDERING PHYSICIAN: KOJO CRAWFORD TECHNOLOGIST: [place] [facility] [place] Patient: Pawel Azul : 1935 Visit/Account:[id number] Date of Sevice: 02/14/2018 INDICATION: post reduction. Trauma DATE: 02/14/2018 4:47 AM. TECHNIQUE: TIBIA FIBULA LEFT COMPARISON: Radiographs February 14, 2018 FINDINGS: Bone density is diffusely decreased. There is an oblique fracture of the distal fibula that extends to the level of the mortise. This is mildly displaced. A transverse fracture through the med ial malleolus is also displaced with medial shift of the tibial plafond on the talar dome. Prominent os trigonum. Scattered degenerative findings. IMPRESSION: Medial and lateral malleolar fractures as above. Report Dictated By: Del Neely MD at 02/14/2018 4:47 AM Report E-Signed By: Del Neely MD at 02/14/2018 4:48 AM WSN:[id number]
--- NOTE | 2018-02-14 04:53 | RADIOLOGY IMAGING REPORT ---
FACILITY: [facility] PATIENT NAME: Pawel Azul : 1935 MR: [id number] V: [id number] EXAM DATE: ORDERING PHYSICIAN: KOJO CRAWFORD TECHNOLOGIST: Location: [facility] [place] Patient: Pawel Azul : 1935 Visit/Account:[id number] Date of Sevice: 02/14/2018 INDICATION: Trauma DATE: 02/14/2018 4:48 AM. TECHNIQUE: PELVIS COMPARISON: None FINDINGS: The pelvic ring appears intact. No fracture or dislocation is conspicuous at the hips. The sacrum is partially obscured by stool and bowel gas. Multilevel degenerative findings are noted in th e lumbar spine. IMPRESSION: No acute findings at the pelvis. Report Dictated By: Del Neely MD at 02/14/2018 4:48 AM Report E-Signed By: Del Neely MD at 02/14/2018 4:49 AM WSN:[id number]
--- NOTE | 2018-02-14 05:38 | RADIOLOGY IMAGING REPORT ---
FACILITY: PATIENT NAME: Pawel Azul : 1935 MR: [id number] V: [id number] EXAM DATE: ORDERING PHYSICIAN: KOJO CRAWFORD TECHNOLOGIST: Location: [facility] - [place], [place] Patient: Pawel Azul : 1935 Visit/Account:[id number] Date of Sevice: 02/14/2018 CT Head without contrast and CT Cervical spine: Indication: TRAUMA Comparison: Head CT 09/07/2017 Technique: CT head: Axial CT images were obtained through the brain from the skull base to the verte x without administration of IV contrast. Reformatted coronal and sagittal images were also obtained. Technique: CT cervical spine: Axial CT imaging of the cervical spine was performed. 2-D sagittal and coronal CT reformats were also obtained. One of the following dose optimization techniques was utilized in the performance of this exam: Autom ated exposure control; adjustment of the mA and/or kV according to the patient's size; or use of an i terative reconstruction technique. Specific details can be referenced in the facility's radiology C T exam operational policy. FINDINGS: CT head: No evidence of mass, mass effect, or midline shift. No acute intracranial hemorrhage or acute territorial infarction. Bilateral small remote lacunar infarcts are unchanged. Small amount of additional scattered white matter hypoattenuation likely related to chronic small ves joe ischemic disease, unchanged. Skull is nonacute. Bilateral lens surgeries. The visualized paranasal sinuses and mastoid air spaces are clear. Scattered intravenous air noted, consistent with IV access. CT cervical spine: No acute abnormality of cervical vertebral body height and alignment. No cervical spine fracture. T here is no prevertebral soft tissue thickening. Mild multilevel spondylosis, with prominent multilevel ligamentum flavum calcification. Intravenous area related to cardiac cysts noted. Thyroid is heterogeneous. Remaining visualized cer vical soft tissues are unremarkable. The airway is patent. Incompletely imaged left subclavian cent ral venous catheter. IMPRESSION: 1. No acute intracranial abnormality. Small remote lacunar infarcts and mild chronic ischemic disea se as previously seen. 2. No acute osseous abnormality of the cervical spine. Report Dictated By: Felipe Dasilva MD at 02/14/2018 5:24 AM Report E-Signed By: Felipe Dasilva MD at 02/14/2018 5:34 AM WSN:[id number]
--- NOTE | 2018-02-14 05:39 | RADIOLOGY IMAGING REPORT ---
FACILITY: [facility] - [place] PATIENT NAME: Pawel Azul : 1935 MR: [id number] V: [id number] EXAM DATE: ORDERING PHYSICIAN: KOJO CRAWFORD TECHNOLOGIST: Location: [facility] Patient: Pawel Azul : 1935 Visit/Account:[id number] Date of Sevice: 02/14/2018 CT Head without contrast and CT Cervical spine: Indication: TRAUMA Comparison: Head CT 09/07/2017 Technique: CT head: Axial CT images were obtained through the brain from the skull base to the verte x without administration of IV contrast. Reformatted coronal and sagittal images were also obtained. Technique: CT cervical spine: Axial CT imaging of the cervical spine was performed. 2-D sagittal and coronal CT reformats were also obtained. One of the following dose optimization techniques was utilized in the performance of this exam: Autom ated exposure control; adjustment of the mA and/or kV according to the patient's size; or use of an i terative reconstruction technique. Specific details can be referenced in the facility's radiology C T exam operational policy. FINDINGS: CT head: No evidence of mass, mass effect, or midline shift. No acute intracranial hemorrhage or acute territorial infarction. Bilateral small remote lacunar infarcts are unchanged. Small amount of additional scattered white matter hypoattenuation likely related to chronic small ves joe ischemic disease, unchanged. Skull is nonacute. Bilateral lens surgeries. The visualized paranasal sinuses and mastoid air spaces are clear. Scattered intravenous air noted, consistent with IV access. CT cervical spine: No acute abnormality of cervical vertebral body height and alignment. No cervical spine fracture. T here is no prevertebral soft tissue thickening. Mild multilevel spondylosis, with prominent multilevel ligamentum flavum calcification. Intravenous area related to cardiac cysts noted. Thyroid is heterogeneous. Remaining visualized cer vical soft tissues are unremarkable. The airway is patent. Incompletely imaged left subclavian cent ral venous catheter. IMPRESSION: 1. No acute intracranial abnormality. Small remote lacunar infarcts and mild chronic ischemic disea se as previously seen. 2. No acute osseous abnormality of the cervical spine. Report Dictated By: Felipe Dasilva MD at 02/14/2018 5:24 AM Report E-Signed By: Felipe Dasilva MD at 02/14/2018 5:34 AM WSN:[id number]
[2018-02-14 07:00] VITALS: BP 182/112
== END 2018-02-14 07:18 | disposition short-term general hospital (02) ==
LOC: ER 03:42
DX: S93.05XA Dislocation of left ankle joint, initial encounter (principal); I48.2 Chronic atrial fibrillation; M17.11 Unilateral primary osteoarthritis, right knee; N18.4 Chronic kidney disease, stage 4 (severe); E11.9 Type 2 diabetes mellitus without complications; W01.0XXA Fall on same level from slipping, tripping and stumbling without subsequent striking against object, initial encounter; Y92.002 Bathroom of unspecified non-institutional (private) residence as the place of occurrence of the external cause; Z79.01 Long term (current) use of anticoagulants
CPT/HCPCS: 27840; 70450; 71045; 72125; 72170; 73590; 80305; 81001; 83605; 85025; 85610; 85730; 86850; 86900; 86901; 90471; 90715; 93005; 96365; 96375; 96376; 99291; 99292; G0480; J2405; J3010; J7030; 80320; 82040; 82247; 82310; 82374; 82435; 82565; 82947; 84075; 84132; 84155; 84295; 84450; 84460; 84520; J0690

== ENCOUNTER → 2018-02-14 | Outpatient (CLI) | payer MEDICARE, BC ==
[2018-02-11 12:35] VITALS: BMI 27.0
[~2018-02-14] MED LIST changes: -CAL25 FT; +CAL25 PO; +DOXA8TAB11 PO; +FURO20TA19 PO; +LIDO700A19 TP; +TRIA15CR40 TP
== END ==
LOC: AMB 02:58
PROVIDERS: ATTEND Nurse Practitioner
DX: M21.962 Unspecified acquired deformity of left lower leg (principal); S09.90XA Unspecified injury of head, initial encounter; E11.9 Type 2 diabetes mellitus without complications; Z79.01 Long term (current) use of anticoagulants; Z95.0 Presence of cardiac pacemaker; I10 Essential (primary) hypertension; W01.198A Fall on same level from slipping, tripping and stumbling with subsequent striking against other object, initial encounter; Y92.012 Bathroom of single-family (private) house as the place of occurrence of the external cause
CPT/HCPCS: A0425; A0427

== ENCOUNTER → 2018-02-14 | Outpatient (CLI) | payer MEDICARE, BC ==
[2018-02-11 12:35] VITALS: BMI 27.0
== END ==
LOC: AMB 06:53
PROVIDERS: ATTEND Nurse Practitioner
DX: S82.892B Other fracture of left lower leg, initial encounter for open fracture type I or II (principal)
CPT/HCPCS: A0425; A0426

== ENCOUNTER 2018-02-17 12:55 | Inpatient (IN) | payer MEDICARE, BC ==
[2018-02-11 12:35] VITALS: Ht 182.9 cm; Wt 78.9 kg
[~2018-02-17] VITALS: Ht 182.9 cm; Wt 78.9 kg
[~2018-02-17 12:55] MED LIST changes: +AMLO-113 PO; -AMLO-99 PO
[2018-02-17] MEDS ORDERED: INFLUENZA VIRUS VAC 0.5 ML SYR IM ONLY ONE (14:20)
[2018-02-17] MEDS ORDERED: PNEUMOCOC VAC POLY 25MCG/0.5ML IM ONLY ONE (14:20)
[2018-02-17 15:11] VITALS: BP 151/72
[2018-02-17] MEDS ORDERED: NITROGLYCERIN 0.4 MG SUBL SL PRN (15:25)
--- NOTE | 2018-02-17 16:18 | OT ECF NOTE ---
Type of Note: Initial Note Primary Medical Diagnosis: Generalized weakness s/p left ankle ORIF for bimalleolar ankle fracture sustained in a fall at home. Pt is NWB L LE. Occupational Therapy Evaluation Date: 02/17/18 SUBJECTIVE: [place] [facility] [place]. Recent [facility] hospital admission for right knee pain. Prior Level of Function: SBA ADLs. Assist from spouse and son for IADLs. Pt reports ambulating with a walker occasionally. Prior Living Status: Single level house Spouse Living with family Assist by family Community Services: No known needs Home Accessibility: Stairs without rails All needs on one level Walk-in shower Tub/shower combination Equipment Owned: Rollator Medical Complications/Past Medical History: Extensive medical history. Please refer to EMR. Psychosocial Support: Supportive spouse and son who reside with patient. Pain Scale (0-10): None supine in bed or seated in chair. Pain noted with movement. OBJECTIVE: Strength: MMT: Right Left Shoulder Flexion WFL WFL Elbow Flexion WFL WFL Wrist Extension WFL WFL [employer] WFL WFL (5= normal, 4= good, 3= fair, 2= poor, 1= trace) ROM: Both upper extremities, WFL Functional Transfer: Assistive Device: EZ/Patient assisted lift Transfer Ability: Moderate assistance, 2-person assist Initial sit<>stand with RW. Pt requiring Mod-Max Ax1 to maintain NWB L LE and CGA/Min Ax1 to maintain upright position. Pt unable to tolerate stand pivot transfers safely with RW. Pt then completed transfers with use of EZ lift and assist x2 for adherence to weight bearing status. ADL: Upper body dressing: Assistive device: Upper body dressing ability: N/T Lower body dressing: Assistive device: Lower body dressing ability: N/T Toileting: Assistive device: Toileting ability: N/T Grooming/hygiene: Assistive device: Grooming ability: N/T Bathing: Assistive device: Bathing ability: N/T Standardized Assessment: Stefany Index of Activities of Daily Livin/20 upon initial evaluation (02/17/18). ASSESSMENT: Anthony [facility] s/p L ankle ORIF and NWB on L LE. Pt with difficulty expressing PLOF and home set-up. Tangential/repetitive speech present. He is requiring 2-person assist with a patient assisted lift for all transfers and ADLs. At [facility], he ambulated occasionally with a 4WW and was SBA for ADLs with family assist for IADLs. He will benefit from skilled OT services to improve activity tolerance and optimize (I) for ADLs. Problem List/Current Limitations: Pain Decreased WB Decreased activity tolerance Decreased balance Generalized weakness Poor safety awareness Memory deficits Confusion Short Term Goals: 1) Pt will be Min A UB/LB dressing. 2) Pt will be Min A grooming/hygiene seated. 3) Pt will be Min A toilet task. 4) Pt will be Min A bathing. 5) Pt Stefany Index of ADLs score will improve by 2 points. 6) Pt and family will be educated on appropriate AE needs. [facility] Goals: Return home with assist from family and HH services Patient Goals: Return home Rehabilitation Prognosis: Fair Barriers to Discharge: Weight bearing status, Pain, Confusion, Medical history PLAN: The patient will benefit from skilled occupational therapy services 5 times per week for 2 weeks including: Ther ex ADL training Safety training Ther act IADL training Transfer training Adaptive equip training Bed mobility Energy conservation Thank you for this referral. If you have any questions, concerns, or comments about this report or plan, please contact me at . Aracely Ling MS, OTR/L Occupational Therapist [facility]
--- NOTE | 2018-02-17 16:24 | PT ECF NOTE ---
Type of Note: Initial Note Primary Medical Diagnosis: L) ankle ORIF with I&D (NWB L) LE) Physical Therapy Evaluation Date: 02/17/18 SUBJECTIVE: Prior Hospitalization: [facility] 02/14/18-02/17/18 Prior Level of Function: Sylvia with use of 4WW as needed Prior Living Status: Single level house, Spouse, Sone Community Services: No known needs Home Accessibility: 2 stairs without rails, All needs on one level Equipment Owned: Rollator Medical Complications/Past Medical History: See EMR, recent hospitalization (10/12/17 for R) knee pain) Psychosocial Support: and son Pain Scale (0-10): no pain at rest, 6/10 when seated at EOB OBJECTIVE: Strength: Right Lower Extremity: WFL Left Lower Extremity: L) ankle splint in place limiting assessment of strength and ROM ROM: L) ankle ROM restricted by splint Sensation: no paraesthesias reported Other Neuro findings: None noted Bed Mobility: ModA with HOB raised Transfers: Min-ModA x2 with EZ lift, with one person dedicated to maintaining NWB of L) LE Gait: Not attempted Stairs: Not attempted Timed Up and Go (>12 seconds indicated increased risk for falls): Pt unable 10 meter walk test (0.6m/second cannot function independently): Pt unable Other Objective Measures: Pt unable ASSESSMENT: PT/OT co eval complete. Pt demonstrates confusion with tangential statements throughout subjective evaluation. Pt does recall that he is NWB of the L) LE when prompted by PT. Pt required modA to transition from supine to sit. Pt instructed in STS transfer from EOB with use of RW. Pt required one person assistance to maintain NWB status of the L) LE. Pt fatigued quickly and sat back onto bed. Pt able to rise to stand with CGA at gait belt with use of EZ lift, but modA required at L) LE in order to maintain NWB status of L) ankle. Pt will benefit from skilled PT in order to increase independence with functional mobility and decrease risk of falls, it is unclear at this time how the patient will be able to maintain NWB status in prior living situation. Problem List/Current Limitations: Pain Decreased WB Decreased activity johanna Decreased strength Decreased ROM Decreased balance Generalized weakness Poor safety awareness Decreased problem solving Confusion Short Term Goals: 1: Pt to complete bed mobility with Sylvia and HOB flat 2: Pt to complete transfers with SBA and least restrictive AD while maintaining NWB of L) LE 3: Pt to ambulate 10' with SBA and least restrictive AD while maintaining NWB of L) LE 4: Pt to asc/desc 2 stairs with CGA and maintenance of NWB of the L) LE 5: Pt's family to participate in pt's discharge planning in order to ensure adequate home set up with pt's current limitations. Medical Service Technician Goals: Pt to discharge to safest discharge location that will ensure pt safety and maintenance of NWB status of L) LE Patient Goals: Discharge home Rehabilitation Prognosis: Fair Barriers for Discharge: The patient will need to exhibit high levels of independence with functional mobility while maintaining NWB status of L) LE in order to d/c home. The patient's confusion may also have a negative impact on progressing towards PT goals. PLAN: The patient will benefit from skilled physical therapy services 5 times per week for 2 weeks including: Therapeutic Exercise Therapeutic Activities Transfer Training Gait Training Stair Training Manual Therapy Safety Training Neuromuscular Re-educ. Pt/Caregiver Training Bed Mobility Thank you for this referral. If you have any questions, concerns, or comments about this report or plan, please contact me at . Lita Mcgovern, PT, DPT [facility]LESD
[2018-02-17] MEDS ORDERED: INSULIN ASPART 100 U/ML 3 ML PEN SUBQ SCH (16:30)
--- NOTE | 2018-02-17 16:33 | Consultant Pharmacy Review ---
Stitch Marker Review Medication Review Do All Mecications have a Diag: Yes Beers Criteria Medication 2015 Alpha 1 Blockers: Doxazosin Sliding Scale Insulin: Slidin Scale Insulin Disease-Drug Interactions History of Falls/Fractures: Opioids Other General Cautions Title Simvastatin / AmLODIPine Dependencies: * Dose: Daily adult simvastatin doses greater than 20 mg should be avoided in amlodipine treated patients. Lower doses, when indicated, require enhanced monitoring for simvastatin toxicity. Risk Rating D: Consider therapy modification Summary AmLODIPine may increase the serum concentration of Simvastatin. Severity Major Reliability Rating Fair: Reported in the prescribing information Patient Management Avoid the concurrent use of amlodipine with simvastatin when possible. If used together, avoid doses of simvastatin greater than 20 mg/day, and monitor closely for signs of HMG-CoA reductase inhibitor toxicity (e.g., myositis, rhabdomyolysis). Discussion According to simvastatin prescribing information, the AUC of simvastatin (80 mg, single dose) and its active simvastatin acid metabolite were approximately 77% and 58% higher when given to subjects receiving amlodipine (10 mg/day x 10 days).1 Based on these data and evidence that increased simvastatin concentrations are associated with a signficant increase in the risk for adverse muscle effects, the prescribing information for both simvastatin and amlodipine recommend limiting the simvastatin dose to no more than 20 mg/day when used with amlodipine.1,2 The exact mechanism for this potential interaction is uncertain but might involve competition for CYP3A as both simvastatin and amlodipine are substrates. Lexicomp Interaction Analysis A = No known interaction C = Monitor therapy X = Avoid combination B = No action needed D = Consider therapy modification Drugs in this analysis: AmLODIPine; Aspirin; Benazepril; Calcitriol (Systemic); Doxazosin; Famotidine; Furosemide; HumaLOG; HydrALAZINE; Lantus; Nitroglycerin; Percocet; Simvastatin; Toprol XL; Warfarin * Drug-Drug Interactions D AmLODIPine Simvastatin Depends on Dose D Aspirin (Salicylates) Warfarin (Vitamin K Antagonists) Depends on Dose C AmLODIPine (Blood Pressure Lowering Agents) Nitroglycerin (Hypotension- Associated Agents) C AmLODIPine (Calcium Channel Blockers) Doxazosin (Alpha1-Blockers) C Aspirin (Salicylates) Benazepril (Angiotensin-Converting Enzyme Inhibitors) C Aspirin (Salicylates) Furosemide (Loop Diuretics) C Aspirin (Salicylates) HumaLOG (Blood Glucose Lowering Agents) Depends on Dose C Aspirin (Salicylates) Lantus (Blood Glucose Lowering Agents) Depends on Dose C Benazepril (Angiotensin-Converting Enzyme Inhibitors) Furosemide (Loop Diuretics) C Benazepril (Blood Pressure Lowering Agents) Nitroglycerin (Hypotension- Associated Agents) C Doxazosin (Alpha1-Blockers) Toprol XL (Beta-Blockers) Depends on Dosage Form C Doxazosin (Blood Pressure Lowering Agents) Nitroglycerin (Hypotension- Associated Agents) C Furosemide (Blood Pressure Lowering Agents) Nitroglycerin (Hypotension- Associated Agents) C Furosemide (Diuretics) Percocet (Opioid Analgesics) C Furosemide (Hyperglycemia-Associated Agents) HumaLOG (Antidiabetic Agents) C Furosemide (Hyperglycemia-Associated Agents) Lantus (Antidiabetic Agents) C HumaLOG (Hypoglycemia-Associated Agents) Lantus (Antidiabetic Agents) C HumaLOG (Hypoglycemia-Associated Agents) Lantus (Hypoglycemia-Associated Agents) C HumaLOG (Insulins) Toprol XL (Beta-Blockers) C HydrALAZINE (Blood Pressure Lowering Agents) Nitroglycerin (Hypotension- Associated Agents) C Lantus (Insulins) Toprol XL (Beta-Blockers) C Nitroglycerin (Hypotension-Associated Agents) Toprol XL (Blood Pressure Lowering Agents) C Percocet (Acetaminophen) Warfarin (Vitamin K Antagonists) Depends on Dose C Simvastatin (HMG-CoA Reductase Inhibitors (Statins)) Warfarin (Vitamin K Antagonists) B Aspirin Nitroglycerin Depends on Dose B Benazepril (Angiotensin-Converting Enzyme Inhibitors) HumaLOG (Blood Glucose Lowering Agents) B Benazepril (Angiotensin-Converting Enzyme Inhibitors) Lantus (Blood Glucose Lowering Agents) Pneumococcal Vaccine HX Pneumo Vac ([id number]): Yes HX Pneumo Vac (Pneumovax): Yes Comments Regarding the Review Patient is up-to-date on pneumococcal vaccinations. It is recommended that he receive the influenza vaccine when it is available. Please monitor for falls du e to Percocet use and re-evaluate necessity of this medication on a weekly or every 2 weeks. May want to consider decreasing his Simvastatin dose to 20 mg due to amlodipine 10 mg dose (see above interaction). He is also at risk of orthostatic hypotension due to doxazosin use. SUMMER SMITH Feb 17, 2018 16:33
--- NOTE | 2018-02-17 16:42 | History & Physical ---
History of Present Illness Chief Complaint Ankle fracture x/p ORIF. History of Present Illness The patient is a an 82 year old male who was recently discharged 02/12/18 from [facility] after a stay for knee pain and confusion due to pain medication. The patient had an arthrocentesis of his R knee with steroid injection while hospitalized and his pain improved. He was ambulating well at discharge. On 02/14/18 the patient got up to use the bathroom and slipped. His son found him on the ground with his foot at a 90 degree angle from his leg. EMS brought the patient to [facility] and he was transferred to [place]. Dr. Banegas, orthopedist, repaired a compound fracture/dislocation of his L ankle. The patient tolerated the surgery well and is now transferred back to [facility] for rehabilitation. He is non-weight bearing on his L leg currently. Per his discharge instructions, the patient is to follow up with Dr. Banegas in 1- 2 weeks for recheck. History Problems: (1) Arthritis of right knee Status: Chronic (2) Atrial fibrillation Status: Chronic (3) Type II diabetes mellitus Status: Chronic (4) Chronic kidney disease (CKD) stage G4/A1, severely decreased glomerular filtration rate (GFR) between 15-29 mL/min/1.73 square meter and albuminuria creatinine ratio less than 30 mg/g Status: Chronic (5) Diabetes type 2, controlled Status: Chronic (6) BPH (benign prostatic hyperplasia) Status: Chronic (7) Pacemaker Status: Chronic (8) HTN (hypertension) Status: Chronic (9) Hyperlipidemia Status: Chronic (10) CAD (coronary artery disease) Status: Chronic (11) DVT (deep venous thrombosis) Status: Resolved (12) History of lumbar laminectomy Status: Chronic (13) Wenckebach second degree AV block Status: Chronic (14) Hearing loss Status: Chronic (15) NSTEMI (non-ST elevated myocardial infarction) Status: Resolved Home Meds Active Scripts Lidocaine (Lidocaine) 5 % Adh..patch, 1 EACH TP QDAY for 10 Days, #10 PATCH 1 Refill Prov:TORRI LOWRY MD 02/12/18 Hydralazine Hcl (HYDRALAZINE HCL) 50 Mg Tablet, 50 MG PO BID, #60 TAB Prov:TORRI LOWRY MD 02/12/18 Furosemide (LASIX) 20 Mg Tablet, 1 TAB PO QDAY for 30 Days, TAB DO NOT take until discuss with Dr. Molina Prov:TORRI LOWRY MD 02/12/18 Acetaminophen (TYLENOL) 325 Mg Tablet, 325 MG PO Q6H PRN for PAIN MDD 4000mg for 30 Days, TAB Prov:TORRI LOWRY MD 02/12/18 Warfarin Sodium (COUMADIN) 5 Mg Tablet, 5 MG PO QDAY@13, #30 TAB Prov:TAURUS ODOM DO 11/01/17 Aspirin (ASPIRIN) 81 Mg Tab.chew, 81 MG PO QDAY, #30 TAB.CHEW 10 Refills Prov:JENN PARKINSON MD FAC 08/30/15 Reported Medications Triamcinolone Acetonide 0.1% Cr 15 Gm Tube (TRIAMCINOLONE ACETONIDE 0.1% CREAM) 15 Gm Cream..g., TP BID, TUBE 02/10/18 Simvastatin (SIMVASTATIN) 40 Mg Tablet, 40 MG PO HS, TAB 02/10/18 Insulin Glargine 100 Un/Ml Pen (LANTUS SOLOSTAR PEN) 100 Unit/1 Ml Insuln.pen, 27 UNIT SQ QDAY, ML 02/10/18 Doxazosin Mesylate (DOXAZOSIN MESYLATE) 8 Mg Tablet, 8 MG PO HS 02/10/18 Amlodipine Besylate (AMLODIPINE BESYLATE) 10 Mg Tablet, 1 TAB PO QDAY, TAB 02/10/18 Insulin Aspart 100 Un/Ml Pen (NOVOLOG FLEXPEN) 100 Unit/1 Ml Insuln.pen, 4 UNIT SQ TID, ML 11/01/17 Nitroglycerin (NITROSTAT) 0.4 Mg Subl, 0.4 MG SL Q5MIN 11/01/17 Clobetasol Propionate/Emoll (CLOBETASOL EMOLLIENT 0.05% CRM) 15 Gm Cream..g., 0 TP BID 11/01/17 Calcitriol (CALCITRIOL) 0.25 Mcg Cap, 0.25 MCG FT 5 times a week, CAP 11/01/17 Benazepril Hcl (BENAZEPRIL HCL) 40 Mg Tablet, 40 MG PO BID, TAB 11/01/17 Metoprolol Succinate (TOPROL XL) 100 Mg Tab.er.24h, 1 TAB PO QDAY, TAB 08/13/16 Famotidine (FAMOTIDINE) 20 Mg Tablet, 20 MG PO QDAY, TAB 06/08/16 Oxygen (OXYGEN) 2 L Inha, 2 L INH HS PRN for SEE COMMENT, L 12/06/14 Discontinued Reported Medications Nortriptyline Hcl (NORTRIPTYLINE HCL) 10 Mg Cap, 10 MG PO QDAY, CAP 02/10/18 Hydralazine Hcl (HYDRALAZINE HCL) 50 Mg Tablet, 50 MG PO BID, TAB 08/13/16 Insulin Glargine,Hum.rec.anlog (Basaglar Kwikpen U-100) 100 Unit/Ml (3 Ml) Insuln.pen, 35 QHS 10/30/17 Discontinued Scripts Enoxaparin Sodium (ENOXAPARIN SODIUM) 40 Mg/0.4 Ml Disp.syrin, 40 MG SQ DAILY, #2 SYR Prov:TAURUS ODOM DO 11/01/17 Allergies: Coded Allergies: No Known Drug Allergies (Unverified , 02/14/18) Patient History: FH: cancer MOTHER, , Age:60 years and older BROTHER OR SISTER BROTHER OR SISTER FH: diabetes mellitus CHILD FH: emphysema BROTHER OR SISTER Other Social/Family Hx The patient lives at home with his . They have a son in [place] who watches after them. Hx Smoking: Yes (Quit 65 Years Ago) Smoking Status: Former Smoker Exposure to Second Hand Smoke?: No Caffeine Intake: Coffee, Tea Caffeine/Cups Per Day: 2 Hx Alcohol Use: Yes (Yes beer & Gin) Hx Substance Use Disorder: No Social Drug Use: Never History of IV Drug Use: No Review of Systems Constitutional: No Fever Neurological: Confusion (Has confusion at night per the patient's . Wanders at night.), Other (Mild dementia.) ENT: Hearing Loss Cardiovascular: No Chest Pain Respiratory: No Shortness of Breath, No Cough Gastrointestinal: No Nausea, No Vomiting Genitourinary: No Dysuria Musculoskeletal: Pain (L ankle s/p surgery.) Psychiatric: Other (Some confusion due to dementia.) Exam Vital Signs Vital Signs Date Time Temp Pulse Resp B/P (MAP) Pulse Ox O2 Delivery O2 Flow Rate FiO2 02/17/18 15:11 98.2 60 14 151/72 (98) 93 Room Air General Appearance: Alert, Awake, No Acute Distress, Afebrile Neuro: No Gross deficits Eyes: PERRLA Cardiovascular: Regular Rate and Rhythm Respiratory: Clear to Auscultation GI: Abd Soft and Non-Tender Extremities: Warm, Perfused, Other (L leg with cast to below the knee. R knee with no swelling and effusion is improved.) Integumentary: Other (Surgical wound not visible under L leg bandages/cast.) Psych: Appropriate Mood & Affect Assessment and Plan Problems: (1) Open ankle fracture Status: Acute Assessment & Plan: ORIF by Dr. Banegas in [place]. He is to follow up with her in 1-2 weeks. (2) Chronic kidney disease (CKD) stage G4/A1, severely decreased glomerular filtration rate (GFR) between 15-29 mL/min/1.73 square meter and albuminuria creatinine ratio less than 30 mg/g Status: Chronic Assessment & Plan: Periodic labs. New meds will need renal dosing. (3) Diabetes type 2, controlled Status: Chronic Assessment & Plan: Will continue Lantus and place on SSI level 2. (4) BPH (benign prostatic hyperplasia) Status: Chronic Assessment & Plan: Continue doxazosin. (5) HTN (hypertension) Status: Chronic Assessment & Plan: Continue metoprolol, benazepril and amlodipine. He also takes doxazosin as above. (6) DVT (deep venous thrombosis) Status: Resolved Assessment & Plan: Continue Coumadin. INR daily. (7) Pacemaker Status: Chronic (8) Hyperlipidemia Status: Chronic Assessment & Plan: Continue simvastatin. (9) CAD (coronary artery disease) Status: Chronic Assessment & Plan: Continue ASA, NTG prn and metoprolol. (10) Hearing loss Status: Chronic (11) Atrial fibrillation Status: Chronic Assessment & Plan: Has pacemaker in place and is on metoprolol. On Coumadin. INR therapeutic on transfer from [place]. (12) GERD (gastroesophageal reflux disease) Status: Chronic Assessment & Plan: Continue famotidine. Time Spent on Plan of Care: < 30 min Venous Thromboembolism Antithrombotics Is Pt On Any Antithrombotics?: Yes PHYLICIA LOWRY MD Feb 17, 2018 16:42
[2018-02-17] MEDS: INSULIN HUM LISPRO 100 UN/ML 3 ML VIAL SUBQ PRN ×2 (16:46→20:17)
[2018-02-17] MEDS: INSULIN GLARGINE 100 U/ML 3 ML PEN SUBQ SCH (20:17)
[2018-02-17] MEDS: SIMVASTATIN 40 MG TAB PO SCH (20:18)
[2018-02-17] MEDS: BENAZEPRIL HCL 20 MG TAB PO SCH (20:18)
[2018-02-17] MEDS: DOXAZOSIN MESYLATE 2 MG TAB PO SCH (20:18)
[2018-02-17] MEDS: hydrALAZINE HCL 25 MG TAB PO SCH (20:18)
[2018-02-18 06:27] LABS: INR 1.85
[2018-02-18 07:25] VITALS: BP 149/70
[2018-02-18] MEDS: INSULIN HUM LISPRO 100 UN/ML 3 ML VIAL SUBQ PRN ×4 (09:31→20:57)
[2018-02-18] MEDS: CALCITRIOL 0.25 MCG CAP PO SCH (09:32)
[2018-02-18] MEDS: FAMOTIDINE 20 MG TAB PO SCH (09:32)
[2018-02-18] MEDS: BENAZEPRIL HCL 20 MG TAB PO SCH ×2 (09:32→20:56)
[2018-02-18] MEDS: FUROSEMIDE 20 MG TAB PO SCH (09:33)
[2018-02-18] MEDS: amLODIPine BESYL(*) 5 MG TAB PO SCH (09:33)
[2018-02-18] MEDS: hydrALAZINE HCL 25 MG TAB PO SCH ×2 (09:33→20:56)
[2018-02-18] MEDS: METOPROLOL SUCC XL 50 MG TABCR 50 MG TAB.ER.24H PO SCH (09:33)
[2018-02-18] MEDS: ASPIRIN 81 MG ENTERIC COATED PO SCH (09:33)
[2018-02-18] MEDS: WARFARIN SOD 5 MG TAB PO SCH (12:33)
[2018-02-18 15:55] VITALS: BP 129/70
[2018-02-18 20:50] VITALS: BP 141/63
[2018-02-18] MEDS: SIMVASTATIN 40 MG TAB PO SCH (20:56)
[2018-02-18] MEDS: DOXAZOSIN MESYLATE 2 MG TAB PO SCH (20:56)
[2018-02-18] MEDS: INSULIN GLARGINE 100 U/ML 3 ML PEN SUBQ SCH (20:57)
[2018-02-19 06:36] LABS: INR 2.11
[2018-02-19] MEDS ORDERED: OLANZapine ZYDIS ODT 5MG TABDP PO PRN (07:45)
--- NOTE | 2018-02-19 08:25 | Miscellaneous Provider Note ---
Miscellaneous Provider Note Note The patient was agitated most of the night. His came in which helped, but left after midnight. He didn't sleep much and continues to be agitated. There is an aid acting as a one on one for supervision. The patient is currently calm and directable. His just arrived. Will try Seroquel prn and scheduled at night (QTc wnl on previous ECG) with melatonin. His is agreeable with the plan. ALBINO VALDEZ MD Feb 19, 2018 08:25
[2018-02-19] MEDS: QUEtiapine FUM 25 MG TAB PO PRN ×4 (08:42→20:56)
[2018-02-19] MEDS: ASPIRIN 81 MG ENTERIC COATED PO SCH ×2 (08:43→09:00)
[2018-02-19] MEDS: BENAZEPRIL HCL 20 MG TAB PO SCH ×3 (08:44→21:00)
[2018-02-19] MEDS: hydrALAZINE HCL 25 MG TAB PO SCH ×3 (08:44→21:00)
[2018-02-19] MEDS: FAMOTIDINE 20 MG TAB PO SCH (08:45)
[2018-02-19] MEDS: METOPROLOL SUCC XL 50 MG TABCR 50 MG TAB.ER.24H PO SCH (08:45)
[2018-02-19] MEDS: CALCITRIOL 0.25 MCG CAP PO SCH ×2 (08:45→09:00)
[2018-02-19] MEDS: FUROSEMIDE 20 MG TAB PO SCH ×2 (08:45→09:00)
[2018-02-19] MEDS: amLODIPine BESYL(*) 5 MG TAB PO SCH (08:45)
[2018-02-19] MEDS: INSULIN HUM LISPRO 100 UN/ML 3 ML VIAL SUBQ PRN ×3 (08:57→16:50)
[2018-02-19 09:31] VITALS: BP 134/67
[2018-02-19] MEDS ORDERED: WATER STERILE 10 ML VIAL IM ONLY ONE (10:10)
[2018-02-19] MEDS ORDERED: OLANZapine 10 MG VIAL IM ONLY ONE (10:10)
--- NOTE | 2018-02-19 10:26 | Medical Nutrition Therapy ---
Nutrition Anthropometrics Height (Inches): 72 Weight (Pounds): 199 Weight (Calculated Kilograms): 90.265 Mark Nutrition Score: Adequate Mark Nutrition Risk Score: 15 Dietary Referral Nutrition Risk Factors: Special Diet Nutrition Risk Comment: Pt indicates he has lost 190 lbs Nutritional Diagnosis Nutritional Risk Acuity 2: Chronic Renal Failure Nutritional Risk Acuity 3: Fx & > 80 yrs Past Medical History: CKD, T2DM, HTN, Hyperlipidemia, Hypokalemia, gout, NSTEMI, CAD, pacemaker, acute renal failure Nutrition Diagnosis: Decreased Nutrient Needs Nutrition Etiology: Physiological Causes Nutrition Problem/Etiology/Sym: Decreased protein needs related to physiological causes as evidenced by renal dysfunction, BUN 76 and creatinine 2.8. Energy Requirement: 1970 (2563-4137) Protein Requirement: 72 (54-72 (.6-.8 g/kg for CKD)) Fluid Requirement: 2250 (25 ml/kg) Diet Type: Diabetic Nutrition Intervention: Cont diet as ordered, Encourage intake Drug: Diuretics, Warfarin Drug/Nutrition Recommendations: Check Serum K+ Food Likes: tea sweetened with splenda (very sweet) Do Not Serve Any of the Follow: Broccoli, Brussel Sprouts, Spinach, [place] Lettuce, Cranberry Juice Nutrition Monitoring & Eval RD Patient Assessment Time: [address] Assessment Type: RD Assessment Patient Nutrition Acuity: 2-Moderate Follow Up Date: Feb 21, 2018 Nutritional Comment: 02/19 Pt admitted to ECF unit with and ankle fx for ongoing rehab. PMH of CKD, T2DM, HTN and CAD. Currently on ADA diet with average intake of 91%. Notable labs include low H/H, glc ranging from 378-186, from 02/14: BUN 76, creatinine 2.8, tot pro 5.8 and alb 3.4. Will monitor and encourage intake. -ALLAN LUIS Feb 19, 2018 10:26
[2018-02-19] MEDS: WARFARIN SOD 5 MG TAB PO SCH (12:35)
[2018-02-19] MEDS ORDERED: oxyCODONE HCL 5 MG CAP PO PRN (19:50)
[2018-02-19] MEDS ORDERED: diphenhydrAMINE 25 MG CAP PO PRN (19:50)
[2018-02-19] MEDS: QUEtiapine FUM 25 MG TAB PO SCH (20:56)
[2018-02-19] MEDS: ACETAMINOPHEN 500 MG TAB PO PRN (20:56)
[2018-02-19] MEDS ORDERED: QUEtiapine FUM 25 MG TAB PO SCH (21:00)
[2018-02-19] MEDS ORDERED: MELATONIN 3 MG TAB PO SCH (21:00)
[2018-02-19] MEDS: DOXAZOSIN MESYLATE 2 MG TAB PO SCH (21:00)
[2018-02-19] MEDS: SIMVASTATIN 40 MG TAB PO SCH (21:00)
[2018-02-19] MEDS: INSULIN GLARGINE 100 U/ML 3 ML PEN SUBQ SCH (21:00)
[2018-02-20 05:39] LABS: INR 2.24
[2018-02-20] MEDS: amLODIPine BESYL(*) 5 MG TAB PO SCH (09:00)
[2018-02-20] MEDS: METOPROLOL SUCC XL 50 MG TABCR 50 MG TAB.ER.24H PO SCH (09:00)
[2018-02-20] MEDS: ASPIRIN 81 MG ENTERIC COATED PO SCH (09:00)
[2018-02-20] MEDS: FUROSEMIDE 20 MG TAB PO SCH (09:00)
[2018-02-20] MEDS: FAMOTIDINE 20 MG TAB PO SCH (09:00)
[2018-02-20] MEDS: BENAZEPRIL HCL 20 MG TAB PO SCH ×3 (09:00→21:31)
[2018-02-20] MEDS: CALCITRIOL 0.25 MCG CAP PO SCH (09:00)
[2018-02-20] MEDS: hydrALAZINE HCL 25 MG TAB PO SCH ×3 (09:00→21:31)
[2018-02-20 10:09] VITALS: BP 152/58
[2018-02-20] MEDS: INSULIN HUM LISPRO 100 UN/ML 3 ML VIAL SUBQ PRN ×3 (10:12→21:32)
--- NOTE | 2018-02-20 12:03 | Medical Nutrition Therapy ---
Nutrition Anthropometrics Height (Inches): 72 Weight (Pounds): 199 Weight (Calculated Kilograms): 90.265 BMI: 27 Mark Nutrition Score: Adequate Mark Nutrition Risk Score: 15 Dietary Referral Nutrition Risk Factors: Special Diet Nutrition Risk Comment: Pt indicates he has lost 190 lbs Physical Findings Physical Appearance: Overweight BMI 25-29 Skin Appearance Skin Appearance: Edema Edema Location Modifier: Right Edema Location: Lower Extremity Type of Edema: Degree of Edema: Gastrointestinal Symptoms GI Symtoms: Tube Present: Bowel Sounds: Recent Bowel Pattern: Stool Characteristics: Nutritional Diagnosis Nutritional Risk Acuity 2: Chronic Renal Failure Nutritional Risk Acuity 3: Fx & > 80 yrs Past Medical History: CKD, T2DM, HTN, Hyperlipidemia, Hypokalemia, gout, NSTEMI, CAD, pacemaker, acute renal failure Nutrition Diagnosis: Decreased Nutrient Needs Nutrition Etiology: Physiological Causes Nutrition Problem/Etiology/Sym: Decreased protein needs related to physiological causes as evidenced by renal dysfunction, BUN 76 and creatinine 2.8. Energy Requirement: 1970 (0128-8884) Protein Requirement: 72 (54-72 (.6-.8 g/kg for CKD)) Fluid Requirement: 2250 (25 ml/kg) Diet Type: Diabetic Nutrition Intervention: Cont diet as ordered, Encourage intake Drug: Diuretics, Warfarin Drug/Nutrition Recommendations: Check Serum K+ Food Likes: tea sweetened with splenda (very sweet) Do Not Serve Any of the Follow: Broccoli, Brussel Sprouts, Spinach, [place] Lettuce, Cranberry Juice Nutrition Monitoring & Eval RD Patient Assessment Time: [address] Assessment Type: RD Re-Assessment Patient Nutrition Acuity: 2-Moderate Follow Up Date: Feb 28, 2018 Nutritional Comment: 02/19 Pt admitted to ECF unit with and ankle fx for ongoing rehab. PMH of CKD, T2DM, HTN and CAD. Currently on ADA diet with average intake of 91%. Notable labs include low H/H, glc ranging from 378-186, from 02/14: BUN 76, creatinine 2.8, tot pro 5.8 and alb 3.4. Will monitor and encourage intake. -EK 02/20. Pt cont on diabetic diet, consuming 50-100% of small and regular sized meals. Receiving 27 units Lantus Q HS and 2-10 units Lispro SS SUBQ. Pt is also receiving 20mg potassium depleting diuretic. No current labs available. Pt has a BMI in overweight class, 27. Will cont to monitor pt intake and labs. MR HAUSERSABINE Feb 20, 2018 08:21
[2018-02-20] MEDS: WARFARIN SOD 5 MG TAB PO SCH (12:28)
[2018-02-20] MEDS: QUEtiapine FUM 25 MG TAB PO PRN (14:11)
[2018-02-20] MEDS: ACETAMINOPHEN 500 MG TAB PO PRN (14:12)
--- NOTE | 2018-02-20 17:20 | Miscellaneous Provider Note ---
Miscellaneous Provider Note Note Nursing raised concerns about behavior and aggression in patient. They had met with family. After hearing about the discussion the following changes were made: Stopped benadryl for itching - would use 2nd generation antihistamine if necessary and attempt to hydrate skin. Stop warfarin, begin Eliquis 2.5mg - INR labile, requiring daily draws and patient fighting and having to be restrained. CrCl 28 Cr 2.5-2.8 on review, borderline for Eliquis, discussed with who was ok with trying Eliquis. Believe benefit outweighs risk. Recheck BMP and Hgb for Tue. Tylenol scheduled - stop narcotic ANNABELLE BALDWIN DO Feb 20, 2018 17:20
[2018-02-20] MEDS: SIMVASTATIN 40 MG TAB PO SCH ×2 (21:00→21:31)
[2018-02-20] MEDS: MELATONIN 3 MG TAB PO SCH (21:30)
[2018-02-20] MEDS: DOXAZOSIN MESYLATE 2 MG TAB PO SCH (21:30)
[2018-02-20] MEDS: QUEtiapine FUM 25 MG TAB PO SCH (21:30)
[2018-02-20] MEDS: APIXABAN 2.5 MG TABLET PO SCH (21:31)
[2018-02-20] MEDS: INSULIN GLARGINE 100 U/ML 3 ML PEN SUBQ SCH (21:31)
[2018-02-21] MEDS: ACETAMINOPHEN 500 MG TAB PO SCH ×4 (01:00→20:09)
[2018-02-21 06:47] LABS: PLATELET COUNT, AUTOMATED 264 K/uL (150-450)
[2018-02-21] MEDS: APIXABAN 2.5 MG TABLET PO SCH ×3 (09:00→21:00)
[2018-02-21] MEDS: FAMOTIDINE 20 MG TAB PO SCH (09:00)
[2018-02-21] MEDS: METOPROLOL SUCC XL 50 MG TABCR 50 MG TAB.ER.24H PO SCH (09:00)
[2018-02-21] MEDS: amLODIPine BESYL(*) 5 MG TAB PO SCH (09:00)
[2018-02-21] MEDS: BENAZEPRIL HCL 20 MG TAB PO SCH ×3 (09:00→21:00)
[2018-02-21] MEDS: FUROSEMIDE 20 MG TAB PO SCH (09:00)
[2018-02-21] MEDS: CALCITRIOL 0.25 MCG CAP PO SCH (09:00)
[2018-02-21] MEDS: hydrALAZINE HCL 25 MG TAB PO SCH ×2 (09:00→21:00)
[2018-02-21 12:10] VITALS: BP 106/56
[2018-02-21] MEDS: SIMVASTATIN 40 MG TAB PO SCH (20:07)
[2018-02-21] MEDS: DOXAZOSIN MESYLATE 2 MG TAB PO SCH ×2 (20:07→21:00)
[2018-02-21] MEDS: MELATONIN 3 MG TAB PO SCH ×2 (20:07→21:00)
[2018-02-21] MEDS: QUEtiapine FUM 25 MG TAB PO SCH (20:08)
[2018-02-21] MEDS: INSULIN GLARGINE 100 U/ML 3 ML PEN SUBQ SCH (20:08)
[2018-02-21 20:40] VITALS: BP 134/71
[2018-02-22] MEDS: ACETAMINOPHEN 500 MG TAB PO SCH ×3 (00:22→16:44)
[2018-02-22 08:15] VITALS: BP 139/72
[2018-02-22] MEDS: INSULIN HUM LISPRO 100 UN/ML 3 ML VIAL SUBQ PRN ×3 (09:10→16:42)
[2018-02-22] MEDS: METOPROLOL SUCC XL 50 MG TABCR 50 MG TAB.ER.24H PO SCH (09:17)
[2018-02-22] MEDS: APIXABAN 2.5 MG TABLET PO SCH ×2 (09:17→21:01)
[2018-02-22] MEDS: BENAZEPRIL HCL 20 MG TAB PO SCH ×2 (09:19→21:00)
[2018-02-22] MEDS: CALCITRIOL 0.25 MCG CAP PO SCH (09:19)
[2018-02-22] MEDS: FAMOTIDINE 20 MG TAB PO SCH (09:19)
[2018-02-22] MEDS: hydrALAZINE HCL 25 MG TAB PO SCH ×2 (09:20→21:00)
[2018-02-22] MEDS: amLODIPine BESYL(*) 5 MG TAB PO SCH (09:20)
[2018-02-22] MEDS: FUROSEMIDE 20 MG TAB PO SCH (09:20)
--- NOTE | 2018-02-22 14:44 | Hospitalist Progress Note ---
Physical Exam Vital Signs Date Time Temp Pulse Resp B/P (MAP) Pulse Ox O2 Delivery O2 Flow Rate FiO2 02/22/18 11:41 96 Nasal Cannula 1.0 02/22/18 08:15 97.6 60 10 139/72 (94) Intake and Output 02/22/18 06:59 Output Total 50 ml Balance -50 ml Output Urine Total 50 ml # Voids 5 Result Diagram: 02/21/18 0602/21/18 06 Assessment and Plan Problems: (1) Delirium Status: Acute Assessment & Plan: Improved after adjusting medications. (2) Open ankle fracture Status: Acute Assessment & Plan: ORIF by Dr. Banegas in [place]. He is to follow up but travel would be very difficult. Will talk to Dr. Cardona who saw him for a different problem earlier this month. (3) Chronic kidney disease (CKD) stage G4/A1, severely decreased glomerular filtration rate (GFR) between 15-29 mL/min/1.73 square meter and albuminuria creatinine ratio less than 30 mg/g Status: Chronic Assessment & Plan: Periodic labs. New meds will need renal dosing. (4) Diabetes type 2, controlled Status: Chronic Assessment & Plan: Will continue Lantus and place on SSI level 2. (5) BPH (benign prostatic hyperplasia) Status: Chronic Assessment & Plan: Continue doxazosin. (6) HTN (hypertension) Status: Chronic Assessment & Plan: Continue metoprolol, benazepril and amlodipine. He also takes doxazosin as above. (7) DVT (deep venous thrombosis) Status: Resolved Assessment & Plan: Switched to Eliquis as the patient would not allow blood draws while delirious. CrCl borderline. Consider switching back to Coumadin when able. (8) Pacemaker Status: Chronic (9) Hyperlipidemia Status: Chronic Assessment & Plan: Continue simvastatin. (10) CAD (coronary artery disease) Status: Chronic Assessment & Plan: Continue ASA, NTG prn and metoprolol. (11) Hearing loss Status: Chronic (12) Atrial fibrillation Status: Chronic Assessment & Plan: Has pacemaker in place and is on metoprolol. On Eliquis. See above. (13) GERD (gastroesophageal reflux disease) Status: Chronic Assessment & Plan: Continue famotidine. Time Spent on Plan of Care: < 30 min PHYLICIA LOWRY MD Feb 22, 2018 14:44
[2018-02-22] MEDS ORDERED: BISACODYL 10 MG SUPP PR PRN (14:45)
[2018-02-22] MEDS ORDERED: MAGNESIUM HYDROXIDE* 30ML UDCP PO PRN (14:45)
[2018-02-22 16:45] VITALS: BP 108/63
[2018-02-22] MEDS: QUEtiapine FUM 25 MG TAB PO SCH (21:00)
[2018-02-22] MEDS: INSULIN GLARGINE 100 U/ML 3 ML PEN SUBQ SCH (21:00)
[2018-02-22] MEDS: SIMVASTATIN 40 MG TAB PO SCH (21:00)
[2018-02-22] MEDS: MELATONIN 3 MG TAB PO SCH (21:01)
[2018-02-22] MEDS: DOXAZOSIN MESYLATE 2 MG TAB PO SCH (21:01)
[2018-02-22] MEDS: DOCUSATE SODIUM 100 MG CAP PO SCH (21:01)
[2018-02-23] MEDS: ACETAMINOPHEN 500 MG TAB PO SCH ×3 (01:00→17:01)
[2018-02-23 06:17] LABS: PLATELET COUNT, AUTOMATED 268 K/uL (150-450)
[2018-02-23 07:45] VITALS: BP 125/55
[2018-02-23] MEDS: NS(*) 0.9% 1000 ML BAG 1,000 ML IV PRN ×2 (08:18→22:35)
[2018-02-23] MEDS: INSULIN HUM LISPRO 100 UN/ML 3 ML VIAL SUBQ PRN ×4 (08:41→19:47)
[2018-02-23] MEDS: BENAZEPRIL HCL 20 MG TAB PO SCH ×2 (09:04→19:49)
[2018-02-23] MEDS: DOCUSATE SODIUM 100 MG CAP PO SCH ×2 (09:05→19:53)
[2018-02-23] MEDS: CALCITRIOL 0.25 MCG CAP PO SCH (09:05)
[2018-02-23] MEDS: hydrALAZINE HCL 25 MG TAB PO SCH ×2 (09:05→19:53)
[2018-02-23] MEDS: amLODIPine BESYL(*) 5 MG TAB PO SCH (09:05)
[2018-02-23] MEDS: METOPROLOL SUCC XL 50 MG TABCR 50 MG TAB.ER.24H PO SCH (09:05)
[2018-02-23] MEDS: FAMOTIDINE 20 MG TAB PO SCH (09:05)
[2018-02-23] MEDS: POLYETHYLENE GLYCOL 17 GM PKT PO SCH (09:06)
[2018-02-23] MEDS: APIXABAN 2.5 MG TABLET PO SCH ×2 (09:06→19:53)
[2018-02-23 16:25] VITALS: BP 120/61
[2018-02-23] MEDS: QUEtiapine FUM 25 MG TAB PO PRN (18:42)
[2018-02-23] MEDS: INSULIN GLARGINE 100 U/ML 3 ML PEN SUBQ SCH (19:48)
[2018-02-23] MEDS: MELATONIN 3 MG TAB PO SCH (19:49)
[2018-02-23] MEDS: DOXAZOSIN MESYLATE 2 MG TAB PO SCH (19:50)
[2018-02-23] MEDS: SIMVASTATIN 40 MG TAB PO SCH (19:53)
[2018-02-23] MEDS: QUEtiapine FUM 25 MG TAB PO SCH (20:42)
[2018-02-24] MEDS: ACETAMINOPHEN 500 MG TAB PO SCH ×4 (01:00→18:19)
[2018-02-24] MEDS: QUEtiapine FUM 25 MG TAB PO PRN ×3 (02:55→18:18)
[2018-02-24 07:30] VITALS: BP 157/63
[2018-02-24] MEDS: INSULIN HUM LISPRO 100 UN/ML 3 ML VIAL SUBQ PRN ×3 (08:45→20:11)
[2018-02-24] MEDS: POLYETHYLENE GLYCOL 17 GM PKT PO SCH ×2 (09:00→09:42)
[2018-02-24] MEDS: FAMOTIDINE 20 MG TAB PO SCH ×2 (09:00→09:42)
[2018-02-24] MEDS: BENAZEPRIL HCL 20 MG TAB PO SCH ×3 (09:00→21:05)
[2018-02-24] MEDS: DOCUSATE SODIUM 100 MG CAP PO SCH ×3 (09:00→21:00)
[2018-02-24] MEDS: CALCITRIOL 0.25 MCG CAP PO SCH ×2 (09:00→09:41)
[2018-02-24] MEDS: METOPROLOL SUCC XL 50 MG TABCR 50 MG TAB.ER.24H PO SCH (09:41)
[2018-02-24] MEDS: hydrALAZINE HCL 25 MG TAB PO SCH ×3 (09:42→21:04)
[2018-02-24] MEDS: APIXABAN 2.5 MG TABLET PO SCH ×2 (09:42→21:07)
[2018-02-24] MEDS: amLODIPine BESYL(*) 5 MG TAB PO SCH (09:42)
[2018-02-24 16:40] VITALS: BP 134/70
[2018-02-24] MEDS: INSULIN GLARGINE 100 U/ML 3 ML PEN SUBQ SCH (20:12)
[2018-02-24] MEDS: QUEtiapine FUM 25 MG TAB PO SCH (20:15)
[2018-02-24] MEDS: MELATONIN 3 MG TAB PO SCH (21:04)
[2018-02-24] MEDS: DOXAZOSIN MESYLATE 2 MG TAB PO SCH (21:06)
[2018-02-24] MEDS: SIMVASTATIN 40 MG TAB PO SCH (21:07)
[2018-02-24 23:00] VITALS: BP 111/55
[2018-02-25] MEDS: ACETAMINOPHEN(*)1000 MG/100 ML 100 ML IVPB SCH (01:20)
[2018-02-25 07:05] VITALS: BP 149/64
[2018-02-25 08:19] VITALS: BP 135/62
[2018-02-25] MEDS: CALCITRIOL 0.25 MCG CAP PO SCH (09:00)
[2018-02-25] MEDS: DOCUSATE SODIUM 100 MG CAP PO SCH ×2 (09:00→20:39)
[2018-02-25] MEDS: POLYETHYLENE GLYCOL 17 GM PKT PO SCH (09:46)
[2018-02-25] MEDS: ACETAMINOPHEN 500 MG TAB PO SCH ×2 (09:48→17:53)
[2018-02-25] MEDS: QUEtiapine FUM 25 MG TAB PO PRN (09:49)
[2018-02-25] MEDS: FAMOTIDINE 20 MG TAB PO SCH (09:50)
[2018-02-25] MEDS: amLODIPine BESYL(*) 5 MG TAB PO SCH (09:50)
[2018-02-25] MEDS: APIXABAN 2.5 MG TABLET PO SCH ×2 (09:50→20:26)
[2018-02-25] MEDS: BENAZEPRIL HCL 20 MG TAB PO SCH ×2 (09:51→20:26)
[2018-02-25] MEDS: METOPROLOL SUCC XL 50 MG TABCR 50 MG TAB.ER.24H PO SCH (09:51)
[2018-02-25] MEDS: hydrALAZINE HCL 25 MG TAB PO SCH ×2 (09:52→20:26)
[2018-02-25] MEDS: INSULIN HUM LISPRO 100 UN/ML 3 ML VIAL SUBQ PRN ×3 (12:30→20:30)
[2018-02-25 19:29] VITALS: BP 110/59
[2018-02-25] MEDS: INSULIN GLARGINE 100 U/ML 3 ML PEN SUBQ SCH (20:25)
[2018-02-25] MEDS: QUEtiapine FUM 25 MG TAB PO SCH (20:25)
[2018-02-25] MEDS: MELATONIN 3 MG TAB PO SCH (20:25)
[2018-02-25] MEDS: DOXAZOSIN MESYLATE 2 MG TAB PO SCH (20:25)
[2018-02-25] MEDS: SIMVASTATIN 40 MG TAB PO SCH (20:39)
[2018-02-26] MEDS: ACETAMINOPHEN(*)1000 MG/100 ML 100 ML IVPB SCH (00:16)
[2018-02-26 07:47] VITALS: BP 109/52
[2018-02-26] MEDS: DOCUSATE SODIUM 100 MG CAP PO SCH ×2 (08:57→21:00)
[2018-02-26] MEDS: FAMOTIDINE 20 MG TAB PO SCH (08:57)
[2018-02-26] MEDS: APIXABAN 2.5 MG TABLET PO SCH ×2 (08:57→21:00)
[2018-02-26] MEDS: METOPROLOL SUCC XL 50 MG TABCR 50 MG TAB.ER.24H PO SCH (08:57)
[2018-02-26] MEDS: QUEtiapine FUM 25 MG TAB PO PRN (08:58)
[2018-02-26] MEDS: POLYETHYLENE GLYCOL 17 GM PKT PO SCH (09:00)
[2018-02-26] MEDS: amLODIPine BESYL(*) 5 MG TAB PO SCH (09:00)
[2018-02-26] MEDS: ACETAMINOPHEN 500 MG TAB PO SCH ×2 (09:03→17:30)
[2018-02-26] MEDS: BENAZEPRIL HCL 20 MG TAB PO SCH ×2 (09:04→20:59)
[2018-02-26] MEDS: hydrALAZINE HCL 25 MG TAB PO SCH ×2 (09:04→21:00)
[2018-02-26] MEDS: CALCITRIOL 0.25 MCG CAP PO SCH (09:05)
[2018-02-26] MEDS: INSULIN HUM LISPRO 100 UN/ML 3 ML VIAL SUBQ PRN ×3 (13:38→21:01)
[2018-02-26 17:47] VITALS: BP 118/66
[2018-02-26] MEDS: SIMVASTATIN 40 MG TAB PO SCH (21:00)
[2018-02-26] MEDS: DOXAZOSIN MESYLATE 2 MG TAB PO SCH (21:00)
[2018-02-26] MEDS: QUEtiapine FUM 25 MG TAB PO SCH (21:00)
[2018-02-26] MEDS: MELATONIN 3 MG TAB PO SCH (21:00)
[2018-02-26] MEDS: INSULIN GLARGINE 100 U/ML 3 ML PEN SUBQ SCH (21:00)
[2018-02-27] MEDS: ACETAMINOPHEN(*)1000 MG/100 ML 100 ML IVPB SCH (01:00)
[2018-02-27 08:38] VITALS: BP 150/70
[2018-02-27] MEDS: hydrALAZINE HCL 25 MG TAB PO SCH ×2 (08:43→20:58)
[2018-02-27] MEDS: CALCITRIOL 0.25 MCG CAP PO SCH (08:43)
[2018-02-27] MEDS: amLODIPine BESYL(*) 5 MG TAB PO SCH (08:43)
[2018-02-27] MEDS: DOCUSATE SODIUM 100 MG CAP PO SCH ×2 (08:43→21:00)
[2018-02-27] MEDS: FAMOTIDINE 20 MG TAB PO SCH (08:43)
[2018-02-27] MEDS: APIXABAN 2.5 MG TABLET PO SCH ×2 (08:43→21:00)
[2018-02-27] MEDS: METOPROLOL SUCC XL 50 MG TABCR 50 MG TAB.ER.24H PO SCH (08:43)
[2018-02-27] MEDS: QUEtiapine FUM 25 MG TAB PO PRN (08:44)
[2018-02-27] MEDS: POLYETHYLENE GLYCOL 17 GM PKT PO SCH (08:44)
[2018-02-27] MEDS: BENAZEPRIL HCL 20 MG TAB PO SCH ×2 (08:44→20:59)
[2018-02-27] MEDS: ACETAMINOPHEN 500 MG TAB PO SCH ×2 (08:46→17:27)
--- NOTE | 2018-02-27 10:09 | Medical Nutrition Therapy ---
Nutrition Anthropometrics Height (Inches): 72 Weight (Pounds): 195 Weight (Calculated Kilograms): 88.496 BMI: 27 Mark Nutrition Score: Adequate Mark Nutrition Risk Score: 14 Dietary Referral Nutrition Risk Factors: Special Diet Nutrition Risk Comment: Pt indicates he has lost 190 lbs Nutritional Diagnosis Nutritional Risk Acuity 2: Chronic Renal Failure (stage 4) Nutritional Risk Acuity 3: Fair Appetite, Fx & > 80 yrs Past Medical History: CKD, T2DM, HTN, Hyperlipidemia, Hypokalemia, gout, NSTEMI, CAD, pacemaker, acute renal failure Nutritional Acuity: 2-Moderate Nutrition Diagnosis: Decreased Nutrient Needs Nutrition Etiology: Physiological Causes Nutrition Problem/Etiology/Sym: Decreased protein needs related to physiological causes as evidenced by renal dysfunction, BUN 76 and creatinine 2.8. Energy Requirement: 1970 (5860-5793) Protein Requirement: 72 (54-72 (.6-.8 g/kg for CKD)) Fluid Requirement: 2250 (25 ml/kg) Diet Type: Diabetic Nutrition Intervention: Cont diet as ordered, Encourage intake Food Likes: WHOLE milk at every meal please Nutrition Monitoring & Eval Nutrition Goals: Eat 75-100% Meal Nutrition Follow-Up: Fair Intake RD Patient Assessment Time: [address] Assessment Type: RD Re-Assessment Patient Nutrition Acuity: 2-Moderate Follow Up Date: Mar 07, 2018 Nutritional Comment: 02/19 Pt admitted to ECF unit with and ankle fx for ongoing rehab. PMH of CKD, T2DM, HTN and CAD. Currently on ADA diet with average intake of 91%. Notable labs include low H/H, glc ranging from 378-186, from 02/14: BUN 76, creatinine 2.8, tot pro 5.8 and alb 3.4. Will monitor and encourage intake. -EK 02/20. Pt cont on diabetic diet, consuming 50-100% of small and regular sized meals. Receiving 27 units Lantus Q HS and 2-10 units Lispro SS SUBQ. Pt is also receiving 20mg potassium depleting diuretic. No current labs available. Pt has a BMI in overweight class, 27. Will cont to monitor pt intake and labs. MR 9/3 Pt cont on diabetic diet. Pasrt 3 days intake averaged 783% of small to reg portions. Wt is down 5t was on a diuretic but now it has stopped. BG cont irrating ranging from 66- 288 past 3 days. Will cont to monitor and send adquate but not exccessive protein. ADRIENNE SQUIRES Feb 27, 2018 10:09
[2018-02-27 16:30] VITALS: BP 135/59
[2018-02-27] MEDS: INSULIN HUM LISPRO 100 UN/ML 3 ML VIAL SUBQ PRN ×2 (17:27→21:05)
[2018-02-27] MEDS: QUEtiapine FUM 25 MG TAB PO SCH (20:57)
[2018-02-27] MEDS: MELATONIN 3 MG TAB PO SCH (20:58)
[2018-02-27] MEDS: DOXAZOSIN MESYLATE 2 MG TAB PO SCH (20:59)
[2018-02-27] MEDS: SIMVASTATIN 40 MG TAB PO SCH (20:59)
[2018-02-27] MEDS: INSULIN GLARGINE 100 U/ML 3 ML PEN SUBQ SCH (21:05)
[2018-02-28] MEDS: ACETAMINOPHEN(*)1000 MG/100 ML 100 ML IVPB SCH (01:28)
[2018-02-28 08:00] VITALS: BP 146/69
[2018-02-28] MEDS: APIXABAN 2.5 MG TABLET PO SCH ×2 (09:13→20:41)
[2018-02-28] MEDS: ACETAMINOPHEN 500 MG TAB PO SCH (09:13)
[2018-02-28] MEDS: POLYETHYLENE GLYCOL 17 GM PKT PO SCH (09:13)
[2018-02-28] MEDS: hydrALAZINE HCL 25 MG TAB PO SCH ×2 (09:13→20:40)
[2018-02-28] MEDS: DOCUSATE SODIUM 100 MG CAP PO SCH ×2 (09:13→20:41)
[2018-02-28] MEDS: METOPROLOL SUCC XL 50 MG TABCR 50 MG TAB.ER.24H PO SCH (09:14)
[2018-02-28] MEDS: BENAZEPRIL HCL 20 MG TAB PO SCH ×2 (09:14→20:40)
[2018-02-28] MEDS: CALCITRIOL 0.25 MCG CAP PO SCH (09:14)
[2018-02-28] MEDS: QUEtiapine FUM 25 MG TAB PO PRN (09:15)
[2018-02-28] MEDS: FAMOTIDINE 20 MG TAB PO SCH (09:16)
[2018-02-28] MEDS: amLODIPine BESYL(*) 5 MG TAB PO SCH (09:16)
--- NOTE | 2018-02-28 12:22 | Medical Nutrition Therapy ---
Nutrition Anthropometrics Height (Inches): 72 Weight (Pounds): 195 Weight (Calculated Kilograms): 88.496 BMI: 27 Mark Nutrition Score: Adequate Mark Nutrition Risk Score: 14 Dietary Referral Nutrition Risk Factors: Special Diet Nutrition Risk Comment: Pt indicates he has lost 190 lbs Physical Findings Physical Appearance: Overweight BMI 25-29 Skin Appearance Skin Appearance: Edema Edema Location Modifier: Right Edema Location: Lower Extremity Type of Edema: Degree of Edema: Gastrointestinal Symptoms GI Symtoms: Diarrhea Tube Present: Bowel Sounds: Recent Bowel Pattern: Stool Characteristics: Nutritional Diagnosis Nutritional Risk Acuity 2: Chronic Renal Failure (stage 4) Nutritional Risk Acuity 3: Fair Appetite, Fx & > 80 yrs Past Medical History: CKD, T2DM, HTN, Hyperlipidemia, Hypokalemia, gout, NSTEMI, CAD, pacemaker, acute renal failure Nutritional Acuity: 2-Moderate Nutrition Diagnosis: Decreased Nutrient Needs Nutrition Etiology: Physiological Causes Nutrition Problem/Etiology/Sym: Decreased protein needs related to physiological causes as evidenced by renal dysfunction, BUN 76 and creatinine 2.8. Energy Requirement: 1970 (6183-9748) Protein Requirement: 72 (54-72 (.6-.8 g/kg for CKD)) Fluid Requirement: 2250 (25 ml/kg) Diet Type: Diabetic Nutrition Intervention: Cont diet as ordered, Encourage intake Food Likes: WHOLE milk at every meal please Additional Diet Restrictions: PROVIDE ADEQUATE BUT NOT EXCESSIVE PROTEIN (~20GM/MEAL) Nutrition Monitoring & Eval RD Patient Assessment Time: [address] Assessment Type: RD Re-Assessment Patient Nutrition Acuity: 2-Moderate Follow Up Date: Mar 07, 2018 Nutritional Comment: 02/19 Pt admitted to ECF unit with and ankle fx for ongoing rehab. PMH of CKD, T2DM, HTN and CAD. Currently on ADA diet with average intake of 91%. Notable labs include low H/H, glc ranging from 378-186, from 02/14: BUN 76, creatinine 2.8, tot pro 5.8 and alb 3.4. Will monitor and encourage intake. -EK 02/20. Pt cont on diabetic diet, consuming 50-100% of small and regular sized meals. Receiving 27 units Lantus Q HS and 2-10 units Lispro SS SUBQ. Pt is also receiving 20mg potassium depleting diuretic. No current labs available. Pt has a BMI in overweight class, 27. Will cont to monitor pt intake and labs. MR 9/3 Pt cont on diabetic diet. Pasrt 3 days intake averaged 783% of small to reg portions. Wt is down 5# was on a diuretic but now it has stopped. BG ranging from 66- 288 past 3 days. Will cont to monitor and send adquate but not exccessive protein. ADRIENNE SQUIRES Feb 28, 2018 12:22
[2018-02-28] MEDS: INSULIN HUM LISPRO 100 UN/ML 3 ML VIAL SUBQ PRN ×3 (12:42→20:39)
[2018-02-28 17:35] VITALS: BP 140/60
[2018-02-28] MEDS: INSULIN GLARGINE 100 U/ML 3 ML PEN SUBQ SCH (20:39)
[2018-02-28] MEDS: QUEtiapine FUM 25 MG TAB PO SCH (20:40)
[2018-02-28] MEDS: MELATONIN 3 MG TAB PO SCH (20:40)
[2018-02-28] MEDS: DOXAZOSIN MESYLATE 2 MG TAB PO SCH (20:40)
[2018-02-28] MEDS: SIMVASTATIN 40 MG TAB PO SCH (20:41)
[2018-03-01] MEDS: ACETAMINOPHEN 500 MG TAB PO SCH ×3 (05:57→20:45)
[2018-03-01 08:30] VITALS: BP 136/57
[2018-03-01] MEDS: BENAZEPRIL HCL 20 MG TAB PO SCH ×2 (09:17→20:43)
[2018-03-01] MEDS: CALCITRIOL 0.25 MCG CAP PO SCH (09:17)
[2018-03-01] MEDS: POLYETHYLENE GLYCOL 17 GM PKT PO SCH (09:17)
[2018-03-01] MEDS: METOPROLOL SUCC XL 50 MG TABCR 50 MG TAB.ER.24H PO SCH (09:18)
[2018-03-01] MEDS: QUEtiapine FUM 25 MG TAB PO PRN (09:18)
[2018-03-01] MEDS: amLODIPine BESYL(*) 5 MG TAB PO SCH (09:18)
[2018-03-01] MEDS: DOCUSATE SODIUM 100 MG CAP PO SCH ×2 (09:18→20:43)
[2018-03-01] MEDS: APIXABAN 2.5 MG TABLET PO SCH ×2 (09:18→20:44)
[2018-03-01] MEDS: hydrALAZINE HCL 25 MG TAB PO SCH ×2 (09:18→20:44)
[2018-03-01] MEDS: FAMOTIDINE 20 MG TAB PO SCH (09:18)
[2018-03-01] MEDS: INSULIN HUM LISPRO 100 UN/ML 3 ML VIAL SUBQ PRN ×4 (09:19→20:45)
--- NOTE | 2018-03-01 14:41 | Hospitalist Progress Note ---
Subjective Progress Notes Subjective The patient states he had several good days but is having trouble with his "thinking" today. Nursing staff notes some confusion this am. He does much better with a small dose of Seroquel in the am. Much better able to participate and less confused/combative. Physical Exam Vital Signs Date Time Temp Pulse Resp B/P (MAP) Pulse Ox O2 Delivery O2 Flow Rate FiO2 03/01/18 09:00 95 Room Air 03/01/18 08:30 96.8 60 16 136/57 (83) Intake and Output0 03/01/18 06:59 Intake Total 1440 ml Balance 1440 ml Intake Oral 1440 ml # Voids 8 General Appearance: Alert, Awake, No Acute Distress Neuro: Other (Confused at times.) Eyes: PERRLA Cardiovascular: Regular Rate and Rhythm Respiratory: Clear to Auscultation Extremities: Warm, Perfused, Other (L leg with bulky bandage. Toes pink, warm, with good cap refill.) Integumentary: Skin Intact without Lesion / Mass Psych: Appropriate Mood & Affect Result Diagram: 02/26/18 0532 Assessment and Plan Problems: (1) Delirium Status: Acute Assessment & Plan: Improved after adjusting medications. He is doing well with Seroquel bid. (2) Open ankle fracture Status: Acute Assessment & Plan: ORIF by Dr. Banegas in [place]. He is to follow up but travel would be very difficult. Dr. Cade has seen the patient and will follow him after discharge as well. (3) Chronic kidney disease (CKD) stage G4/A1, severely decreased glomerular filtration rate (GFR) between 15-29 mL/min/1.73 square meter and albuminuria creatinine ratio less than 30 mg/g Status: Chronic Assessment & Plan: Periodic labs. New meds will need renal dosing. (4) Diabetes type 2, controlled Status: Chronic Assessment & Plan: Will continue Lantus and place on SSI level 2. (5) BPH (benign prostatic hyperplasia) Status: Chronic Assessment & Plan: Continue doxazosin. (6) HTN (hypertension) Status: Chronic Assessment & Plan: Continue metoprolol, benazepril and amlodipine. He also takes doxazosin as above. (7) DVT (deep venous thrombosis) Status: Resolved Assessment & Plan: Switched to Eliquis as the patient would not allow blood draws while delirious. CrCl borderline. Consider switching back to Coumadin when able. (8) Pacemaker Status: Chronic (9) Hyperlipidemia Status: Chronic Assessment & Plan: Continue simvastatin. (10) CAD (coronary artery disease) Status: Chronic Assessment & Plan: Continue ASA, NTG prn and metoprolol. (11) Hearing loss Status: Chronic (12) Atrial fibrillation Status: Chronic Assessment & Plan: Has pacemaker in place and is on metoprolol. On Eliquis. See above. (13) GERD (gastroesophageal reflux disease) Status: Chronic Assessment & Plan: Continue famotidine. Time Spent on Plan of Care: < 30 min PHYLICIA LOWRY MD Mar 01, 2018 14:41
[2018-03-01 16:15] VITALS: BP_SYST 101; BP_SYST 137; BP_DIAS 56; BP_DIAS 69
[2018-03-01] MEDS: INSULIN GLARGINE 100 U/ML 3 ML PEN SUBQ SCH (20:43)
[2018-03-01] MEDS: SIMVASTATIN 40 MG TAB PO SCH (20:43)
[2018-03-01] MEDS: QUEtiapine FUM 25 MG TAB PO SCH (20:44)
[2018-03-01] MEDS: DOXAZOSIN MESYLATE 2 MG TAB PO SCH (20:44)
[2018-03-01] MEDS: MELATONIN 3 MG TAB PO SCH (20:44)
[2018-03-02] MEDS: ACETAMINOPHEN 500 MG TAB PO SCH ×3 (06:05→21:43)
[2018-03-02 08:30] VITALS: BP 138/61
[2018-03-02] MEDS: POLYETHYLENE GLYCOL 17 GM PKT PO SCH (08:45)
[2018-03-02] MEDS: METOPROLOL SUCC XL 50 MG TABCR 50 MG TAB.ER.24H PO SCH (08:46)
[2018-03-02] MEDS: FAMOTIDINE 20 MG TAB PO SCH (08:46)
[2018-03-02] MEDS: CALCITRIOL 0.25 MCG CAP PO SCH (08:47)
[2018-03-02] MEDS: QUEtiapine FUM 25 MG TAB PO SCH ×2 (08:47→20:26)
[2018-03-02] MEDS: APIXABAN 2.5 MG TABLET PO SCH ×2 (08:47→20:28)
[2018-03-02] MEDS: amLODIPine BESYL(*) 5 MG TAB PO SCH (08:47)
[2018-03-02] MEDS: DOCUSATE SODIUM 100 MG CAP PO SCH ×2 (08:47→20:28)
[2018-03-02] MEDS: hydrALAZINE HCL 25 MG TAB PO SCH ×2 (08:47→20:27)
[2018-03-02] MEDS: BENAZEPRIL HCL 20 MG TAB PO SCH ×2 (08:48→20:27)
[2018-03-02] MEDS: INSULIN HUM LISPRO 100 UN/ML 3 ML VIAL SUBQ PRN ×4 (08:51→20:26)
[2018-03-02 14:12] VITALS: BP 123/57
--- NOTE | 2018-03-02 16:14 | OT ECF NOTE ---
Type of Note: Discharge Note Primary Medical Diagnosis: Generalized weakness s/p left ankle ORIF for bimalleolar ankle fracture sustained in a fall at home. Pt is NWB L LE. Occupational Therapy Evaluation Date: 02/17/18 SUBJECTIVE: Prior Hospitalization: [facility] 02/14/18 thru 02/17/18. Recent [facility] hospital admission for right knee pain. Prior Level of Function: SBA ADLs. Assist from spouse and son for IADLs. Pt reports ambulating with a walker occasionally. Prior Living Status: Single level house Spouse Living with family Assist by family Community Services: No known needs Home Accessibility: Stairs without rails All needs on one level Walk-in shower Tub/shower combination Equipment Owned: Rollator Medical Complications/Past Medical History: Extensive medical history. Please refer to EMR. Psychosocial Support: Supportive spouse and son who reside with patient. Pain Scale (0-10): Pain noted with movement. No numerical rating provided. 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 Pt requiring Mod-Max Ax1 to maintain NWB L LE and CGA/Min Ax1 to maintain upright position. Pt unable to tolerate stand pivot transfers safely with RW. Pt then completed transfers with use of EZ lift and assist x2 for adherence to weight bearing status. At discharge date (03/02/18). Pt requires Mod-Max Ax2 for stand pivot transfers with RW and no adherence to NWB L LE. Tested knee sling on RW and slide board transfers. Pt presents with minimal to no adherence to NWB status using these alternative methods. Pt's varied cognitive status impedes new learning and safety for transfers. In order to promote healing and decrease risk of further injuring L LE, it is recommended use of an EZ lift for all transfers. ADL: Upper body dressing: Assistive device: Upper body dressing ability: Mod-Max Ax1 Lower body dressing: Assistive device: None Lower body dressing ability: Max-Total Ax1-2 Toileting: Assistive device: Toileting ability: Moderate-Max Ax2 Grooming/hygiene: Assistive device: Seated Grooming ability: Set-up Bathing: Assistive device: Bathing ability: N/T Standardized Assessment: Stefany Index of Activities of Daily Livin/20 upon initial evaluation (02/17/18). 02/13 upon discharge date (03/02/18). ASSESSMENT: Anthony presented to ECF s/p L ankle ORIF and NWB on L LE. Per, Dr. Cade, pt will be NWB L LE for at least a total of 8 weeks. This pt has demonstrated variable progress towards OT goals but continues to demonstrate decreased adherence to NWB L LE with alternative methods provided. Pt's varied cognitive status impedes new learning and safety for transfers. Due to decreased adherence to NWB status, it is recommended use of an EZ lift for all transfers. In order to promote a safe discharge plan and maintain healing of L LE, this pt may benefit from long-term rehab with option for correction care until weight bearing status progresses. Problem List/Current Limitations: Pain Decreased WB Decreased activity tolerance Decreased balance Generalized weakness Poor safety awareness Memory deficits Confusion Short Term Goals: 1) Pt will be Min A UB/LB dressing. Goal not met. 2) Pt will be Min A grooming/hygiene seated. Goal not met. 3) Pt will be Min A toilet task. Goal not met. 4) Pt will be Min A bathing.Goal not met. 5) Pt Stefany Index of ADLs score will improve by 2 points. Goal not met. 6) Pt and family will be educated on appropriate AE needs.Goal not met. Buffer Automatic Goals: Return home with assist from family and services Patient Goals: Return home Rehabilitation Prognosis: Fair Barriers to Discharge: Weight bearing status, Pain, Confusion, Medical history PLAN: Discharge skilled OT services at this time with recommendation for long- term rehab that offers options for correction care until weight bearing status progresses. Pt is not safe to discharge home at current level of function. Thank you for this referral. If you have any questions, concerns, or comments about this report or plan, please contact me at . Aracely Ling MS, OTR/L Occupational Therapist [place]
[2018-03-02 16:55] VITALS: BP 164/74
[2018-03-02] MEDS: SIMVASTATIN 40 MG TAB PO SCH (20:26)
[2018-03-02] MEDS: INSULIN GLARGINE 100 U/ML 3 ML PEN SUBQ SCH (20:26)
[2018-03-02] MEDS: MELATONIN 3 MG TAB PO SCH (20:27)
[2018-03-02] MEDS: DOXAZOSIN MESYLATE 2 MG TAB PO SCH (20:28)
[2018-03-03] MEDS: ACETAMINOPHEN 500 MG TAB PO SCH ×3 (06:02→21:27)
[2018-03-03] MEDS: APIXABAN 2.5 MG TABLET PO SCH ×2 (08:54→21:25)
[2018-03-03] MEDS: METOPROLOL SUCC XL 50 MG TABCR 50 MG TAB.ER.24H PO SCH (08:54)
[2018-03-03] MEDS: CALCITRIOL 0.25 MCG CAP PO SCH (08:54)
[2018-03-03] MEDS: POLYETHYLENE GLYCOL 17 GM PKT PO SCH (08:54)
[2018-03-03] MEDS: amLODIPine BESYL(*) 5 MG TAB PO SCH (08:54)
[2018-03-03] MEDS: BENAZEPRIL HCL 20 MG TAB PO SCH ×2 (08:55→21:25)
[2018-03-03] MEDS: DOCUSATE SODIUM 100 MG CAP PO SCH ×2 (08:55→21:27)
[2018-03-03] MEDS: FAMOTIDINE 20 MG TAB PO SCH (08:55)
[2018-03-03] MEDS: hydrALAZINE HCL 25 MG TAB PO SCH ×2 (08:55→21:25)
[2018-03-03] MEDS: QUEtiapine FUM 25 MG TAB PO SCH ×2 (08:55→21:24)
[2018-03-03] MEDS: INSULIN HUM LISPRO 100 UN/ML 3 ML VIAL SUBQ PRN ×4 (08:56→21:23)
[2018-03-03 10:30] VITALS: BP 124/57
[2018-03-03] MEDS ORDERED: APIX2.5T PO (13:18)
[2018-03-03] MEDS ORDERED: QUET25TA30 PO ×2 (13:18)
--- NOTE | 2018-03-03 13:41 | Hospitalist Depart ---
Discharge Summary Reason for Hosp/Final Diag: (1) Delirium Status: Acute Hospital Course & Plan: Improved after adjusting medications. He is doing well with Seroquel bid. (2) Open ankle fracture Status: Acute Hospital Course & Plan: ORIF by Dr. Banegas in [place]. He is to follow up but travel would be very difficult. Dr. Cade has seen the patient and will follow him after discharge as well. He will be transferred to [facility] for further rehabilitation. (3) Chronic kidney disease (CKD) stage G4/A1, severely decreased glomerular filtration rate (GFR) between 15-29 mL/min/1.73 square meter and albuminuria creatinine ratio less than 30 mg/g Status: Chronic Hospital Course & Plan: Periodic labs. New meds will need renal dosing. (4) Diabetes type 2, controlled Status: Chronic Hospital Course & Plan: Will continue Lantus and he will continue his usual insulin aspart prior to meals. (5) BPH (benign prostatic hyperplasia) Status: Chronic Hospital Course & Plan: Continue doxazosin. (6) HTN (hypertension) Status: Chronic Hospital Course & Plan: Continue metoprolol, benazepril and amlodipine. He also takes doxazosin as above. (7) DVT (deep venous thrombosis) Status: Resolved Hospital Course & Plan: Switched to Eliquis as the patient would not allow blood draws while delirious. CrCl borderline. Consider switching back to Coumadin when able. (8) Pacemaker Status: Chronic (9) Hyperlipidemia Status: Chronic Hospital Course & Plan: Continue simvastatin. (10) CAD (coronary artery disease) Status: Chronic Hospital Course & Plan: Continue ASA, NTG prn and metoprolol. (11) Hearing loss Status: Chronic (12) Atrial fibrillation Status: Chronic Hospital Course & Plan: Has pacemaker in place and is on metoprolol. On Eliquis. See above. (13) GERD (gastroesophageal reflux disease) Status: Chronic Hospital Course & Plan: Continue famotidine. Departure Latest Vital Signs Vital Signs 03/03/18 10:30 Temp 97.9 Pulse 60 Resp 18 B/P (MAP) 124/57 (79) Pulse Ox 96 O2 Delivery Room Air Weight (Pounds): 195 Weight (Ounces): 1.6 Result Diagram: 02/26/18 0532 Condition: Improved Discharge: Care Home Discharge Instructions Home Meds Active Scripts Quetiapine Fumarate (SEROQUEL) 25 Mg Tablet, 12.5 MG PO QAM, #15 TAB Prov:KARRIE FLAHERTY PATCH WORKER 03/03/18 Quetiapine Fumarate (SEROQUEL) 25 Mg Tablet, 25 MG PO QHS, #30 TAB Prov:KARRIE FLAHERTY PATCH WORKER 03/03/18 Apixaban (ELIQUIS) 2.5 Mg Tablet, 2.5 MG PO BID, #60 TAB Prov:KARRIE FLAHERTY [facility] 03/03/18 Hydralazine Hcl (HYDRALAZINE HCL) 50 Mg Tablet, 50 MG PO BID, #60 TAB Prov:TORRI LOWRY MD 02/12/18 Acetaminophen (TYLENOL) 325 Mg Tablet, 325 MG PO Q6H PRN for PAIN MDD 4000mg for 30 Days, TAB Prov:TORRI LOWRY MD 02/12/18 Reported Medications Triamcinolone Acetonide 0.1% Cr 15 Gm Tube (TRIAMCINOLONE ACETONIDE 0.1% CREAM) 15 Gm Cream..g., 1 APPLIC TP BID, TUBE 02/10/18 Simvastatin (SIMVASTATIN) 40 Mg Tablet, 40 MG PO HS, TAB 02/10/18 Insulin Glargine 100 Un/Ml Pen (LANTUS SOLOSTAR PEN) 100 Unit/1 Ml Insuln.pen, 27 UNIT SQ QHS, ML 02/10/18 Doxazosin Mesylate (DOXAZOSIN MESYLATE) 8 Mg Tablet, 8 MG PO HS 02/10/18 Amlodipine Besylate (AMLODIPINE BESYLATE) 10 Mg Tablet, 1 TAB PO QDAY, TAB 02/10/18 Insulin Aspart 100 Un/Ml Pen (NOVOLOG FLEXPEN) 100 Unit/1 Ml Insuln.pen, 4 UNIT SQ TID, ML With meals. 11/01/17 Nitroglycerin (NITROSTAT) 0.4 Mg Subl, 0.4 MG SL Q5MIN 11/01/17 Clobetasol Propionate/Emoll (CLOBETASOL EMOLLIENT 0.05% CRM) 15 Gm Cream..g., 0 TP BID 11/01/17 Calcitriol (CALCITRIOL) 0.25 Mcg Cap, 0.25 MCG PO 5 times a week, CAP 11/01/17 Benazepril Hcl (BENAZEPRIL HCL) 40 Mg Tablet, 40 MG PO BID, TAB 11/01/17 Metoprolol Succinate (TOPROL XL) 100 Mg Tab.er.24h, 1 TAB PO QDAY, TAB 08/13/16 Famotidine (FAMOTIDINE) 20 Mg Tablet, 20 MG PO QDAY, TAB 06/08/16 Oxygen (OXYGEN) 2 L Inha, 2 L INH HS PRN for SEE COMMENT, L 12/06/14 Discontinued Scripts Lidocaine (Lidocaine) 5 % Adh..patch, 1 EACH TP QDAY for 10 Days, #10 PATCH 1 Refill Prov:TORRI LOWRY MD 02/12/18 Furosemide (LASIX) 20 Mg Tablet, 1 TAB PO QDAY for 30 Days, TAB DO NOT take until discuss with Dr. Molina Prov:TORRI LOWRY MD 02/12/18 Warfarin Sodium (COUMADIN) 5 Mg Tablet, 5 MG PO QDAY@13, #30 TAB Prov:TAURUS ODOM DO 11/01/17 Aspirin (ASPIRIN) 81 Mg Tab.chew, 81 MG PO QDAY, #30 TAB.CHEW 10 Refills Prov:JENN PARKINSON MD FACP 08/30/15 Diet: Diabetic Venous Thromboembolism Antithrombotics Is Pt On Any Antithrombotics?: Yes KARRIE FLAHERTY PATCH WORKER Mar 03, 2018 13:41
[2018-03-03 17:13] VITALS: BP 127/56
[2018-03-03] MEDS: INSULIN GLARGINE 100 U/ML 3 ML PEN SUBQ SCH (21:24)
[2018-03-03] MEDS: MELATONIN 3 MG TAB PO SCH (21:26)
[2018-03-03] MEDS: SIMVASTATIN 40 MG TAB PO SCH (21:27)
[2018-03-03] MEDS: DOXAZOSIN MESYLATE 2 MG TAB PO SCH (21:27)
[2018-03-04] MEDS: ACETAMINOPHEN 500 MG TAB PO SCH ×2 (05:57→13:15)
[2018-03-04 08:05] VITALS: BP 145/58
--- NOTE | 2018-03-04 09:48 | PT ECF NOTE ---
Type of Note: Discharge Summary Primary Medical Diagnosis: L) ankle ORIF with I&D (NWB L) LE) Physical Therapy Evaluation Date: 02/17/18 Physical Therapy Discharge Date: 03/03/18 SUBJECTIVE: Prior Hospitalization: [facility] 02/14/18-02/17/18 Prior Level of Function: Sylvia with use of 4WW as needed Prior Living Status: Single level house, Spouse, Sone Community Services: No known needs Home Accessibility: 2 stairs without rails, All needs on one level Equipment Owned: Rollator Medical Complications/Past Medical History: See EMR, recent hospitalization (10/12/17 for R) knee pain) Psychosocial Support: and son Pain Scale (0-10): no pain at rest, 6/10 when seated at EOB OBJECTIVE: Strength: Right Lower Extremity: WFL Left Lower Extremity: L) ankle splint in place limiting assessment of strength and ROM ROM: L) ankle ROM restricted by splint Sensation: no paraesthesias reported Other Neuro findings: None noted Bed Mobility: Mod A x2-3 Transfers: Multiple techniques attempted. Mod-Mad A x2 to stand to RW. Mod- Max A x2 with use of knee sling in RW. Mod A x2 to stand into EZ/Pt assisted lift. Slide board with Mod A x2. With all techniques, Pt unable to maintain NWB through L LE and requires Total A to maintain this restriction. Unsafe at this time to continue to attempt transfer training due to inability to comply with NWB. Gait: unable Stairs: unable ASSESSMENT: Pt seen for skilled PT from 02/17-03/02 with multiple attempts to find an effective transfer method with Pt's NWB status through L LE. Pt unable to maintain this precaution often requiring Total A to maintain. It is no longer safe to attempt additional functional mobility training and is being transferred to [facility] for nursing home care to maintain mobility and strength until weightbearing status is progressed. Problem List/Current Limitations: Pain, Decreased WB, Decreased activity tolerated, Decreased strength, Decreased ROM, Decreased balance, Generalized weakness, Poor safety awareness, Decreased problem solving, Confusion Short Term Goals: 1: Pt to complete bed mobility with Sylvia and HOB flat 2: Pt to complete transfers with SBA and least restrictive AD while maintaining NWB of L) LE 3: Pt to ambulate 10' with SBA and least restrictive AD while maintaining NWB of L) LE 4: Pt to asc/desc 2 stairs with CGA and maintenance of NWB of the L) LE 5: Pt's family to participate in pt's discharge planning in order to ensure adequate home set up with pt's current limitations. Hotel Recreational Facilities Manager Goals: Pt to discharge to safest discharge location that will ensure pt safety and maintenance of NWB status of L) LE Patient Goals: Discharge home Rehabilitation Prognosis: Fair Barriers for Discharge: The patient will need to exhibit high levels of independence with functional mobility while maintaining NWB status of L) LE in order to d/c home. The patient's confusion may also have a negative impact on progressing towards PT goals. PLAN: DC to [facility]. Thank you for this referral. If you have any questions, concerns, or comments about this report or plan, please contact me at . Stefanie Ribera, PT, DPT MTDD
[2018-03-04] MEDS: hydrALAZINE HCL 25 MG TAB PO SCH (10:40)
[2018-03-04] MEDS: DOCUSATE SODIUM 100 MG CAP PO SCH (10:40)
[2018-03-04] MEDS: FAMOTIDINE 20 MG TAB PO SCH (10:40)
[2018-03-04] MEDS: POLYETHYLENE GLYCOL 17 GM PKT PO SCH (10:41)
[2018-03-04] MEDS: APIXABAN 2.5 MG TABLET PO SCH (10:41)
[2018-03-04] MEDS: CALCITRIOL 0.25 MCG CAP PO SCH (10:41)
[2018-03-04] MEDS: BENAZEPRIL HCL 20 MG TAB PO SCH (10:41)
[2018-03-04] MEDS: METOPROLOL SUCC XL 50 MG TABCR 50 MG TAB.ER.24H PO SCH (10:41)
[2018-03-04] MEDS: amLODIPine BESYL(*) 5 MG TAB PO SCH (10:41)
[2018-03-04] MEDS: QUEtiapine FUM 25 MG TAB PO SCH (10:42)
[2018-03-04] MEDS: INSULIN HUM LISPRO 100 UN/ML 3 ML VIAL SUBQ PRN (12:17)
== END 2018-03-04 13:30 | DRG 560 ==
LOC: ECF 14:38
PROVIDERS: ADMIT Internal Medicine; ATTEND Internal Medicine
DX: S82.892D Other fracture of left lower leg, subsequent encounter for closed fracture with routine healing (principal); N18.4 Chronic kidney disease, stage 4 (severe); F03.91 Unspecified dementia, unspecified severity, with behavioral disturbance; E11.22 Type 2 diabetes mellitus with diabetic chronic kidney disease; I12.9 Hypertensive chronic kidney disease with stage 1 through stage 4 chronic kidney disease, or unspecified chronic kidney disease; I48.2 Chronic atrial fibrillation; N40.0 Benign prostatic hyperplasia without lower urinary tract symptoms; K21.9 Gastro-esophageal reflux disease without esophagitis; E78.5 Hyperlipidemia, unspecified; I25.10 Atherosclerotic heart disease of native coronary artery without angina pectoris; T50.905A Adverse effect of unspecified drugs, medicaments and biological substances, initial encounter; Y92.230 Patient room in hospital as the place of occurrence of the external cause; Z95.0 Presence of cardiac pacemaker; Z86.718 Personal history of other venous thrombosis and embolism; I25.2 Old myocardial infarction; Z87.891 Personal history of nicotine dependence; Z91.83 Wandering in diseases classified elsewhere; Z79.01 Long term (current) use of anticoagulants
CPT/HCPCS: 36415; 36416; 82040; 82247; 82310; 82374; 82435; 82565; 82947; 82948; 84075; 84132; 84155; 84295; 84450; 84460; 84520; 85025; 85610; 97161; 97166; A4216; J0131; J1815; J3490; J7030; Q0163

== ENCOUNTER → 2018-03-13 | Outpatient (REF) | payer MEDICARE, BC ==
[2018-02-11 12:35] VITALS: BMI 27.0
[~2018-03-13] MED LIST changes: +APIX2.5T PO; +QUET25TA30 PO
== END ==
LOC: ZZLCC 07:17
PROVIDERS: ATTEND Family Medicine
DX: N18.3 Chronic kidney disease, stage 3 (moderate) (principal)
CPT/HCPCS: 82570; 84156

== ENCOUNTER → 2018-03-14 | Outpatient (CLI) | payer MEDICARE, BC ==
[2018-02-11 12:35] VITALS: BMI 27.0
--- NOTE | 2018-03-14 11:33 | RADIOLOGY IMAGING REPORT ---
FACILITY: [facility] PATIENT NAME: Pawel Azul : 1935 MR: [id number] V: [id number] EXAM DATE: ORDERING PHYSICIAN: LY SANDHU TECHNOLOGIST: Location: [facility] Patient: Pawel Azul : 1935 Visit/Account:[id number] Date of Sevice: 03/14/2018 Exam type: ARTERIAL BILAT LOWER EXT History: Atherosclerosis Comparison: August 24, 2007. Findings: Waveforms at the right lower extremity are as follows: Right common femoral artery triphasic Right profunda femoral artery biphasic Right superficial femoral artery biphasic Right popliteal artery monophasic Right posterior tibial artery monophasic Right peroneal artery monophasic Right anterior tibial artery monophasic Right dorsalis pedis artery monophasic Right lower extremity peak systolic velocities are reported in centimeters per second. Colon Right common femoral artery 119 Right profunda femoral artery 127 Right SFA proximally 147 Right SFA mid 117 Right SFA distal 87 Right popliteal artery proximal 43 Right popliteal artery distally 78 Right peroneal artery proximally seven Right posterior tibial artery proximally 25 Right posterior tibial artery mid and distal or visualized although velocities could not be measured Right anterior tibial artery 65.4 Right dorsalis pedis artery 76.3 Waveforms the left lower extremity are as follows: Common femoral artery weak biphasic Profunda femoral artery biphasic Superficial femoral artery monophasic Popliteal artery monophasic Posterior tibial artery monophasic Peroneal artery with monophasic The peak systolic velocity of the left lower extremity are reported in centimeters per second: Femoral artery 114 Profunda femoral artery 94 SFA proximal 97 SFA mid 88 SFA distal 85 Popliteal proximal 146 Popliteal distal 58 Proximal posterior tibial artery 46 Proximal tibial artery 61 Peroneal artery distal posterior tibial anterior tibial arteries and dorsalis pedis arteries could no t be visualized due to a cast. IMPRESSION: 1. Atherosclerotic disease of the lower extremities bilaterally as detailed above. On the right the re is monophasic flow from the right popliteal artery distally. On the left there is monophasic flow from the left superficial femoral artery distally Report Dictated By: Astrid Kitchen MD at 03/14/2018 11:07 A
== END ==
LOC: US 01:20
PROVIDERS: ATTEND Internal Medicine Cardiovascular Disease
DX: I70.203 Unspecified atherosclerosis of native arteries of extremities, bilateral legs (principal)
CPT/HCPCS: 93925

== ENCOUNTER → 2018-03-20 | Outpatient (REF) | payer MEDICARE, BC ==
[2018-02-11 12:35] VITALS: BMI 27.0
== END ==
LOC: ZZLCC 12:48
PROVIDERS: ATTEND Family Medicine
DX: R80.1 Persistent proteinuria, unspecified (principal); I12.9 Hypertensive chronic kidney disease with stage 1 through stage 4 chronic kidney disease, or unspecified chronic kidney disease; N18.3 Chronic kidney disease, stage 3 (moderate)
CPT/HCPCS: 82040; 82247; 82310; 82374; 82435; 82565; 82947; 84075; 84132; 84155; 84295; 84450; 84460; 84520

== ENCOUNTER → 2018-03-20 | Outpatient (REF) | payer MEDICARE, BC ==
[2018-02-11 12:35] VITALS: BMI 27.0
== END ==
LOC: ZZLCC 12:51
PROVIDERS: ATTEND Internal Medicine Nephrology
DX: R80.1 Persistent proteinuria, unspecified (principal); I12.9 Hypertensive chronic kidney disease with stage 1 through stage 4 chronic kidney disease, or unspecified chronic kidney disease; N18.3 Chronic kidney disease, stage 3 (moderate)
CPT/HCPCS: 83970

== ENCOUNTER 2018-03-22 15:55 | Emergency (ER) | payer MEDICARE, BC ==
[2018-02-11 12:35] VITALS: Wt 78.9 kg
--- NOTE | 2018-03-22 16:16 | ER Report ---
History and Physical Time Seen By MD: 16:15 HPI/ROS 82-year-old male with multiple chronic medical problems sent to the emergency department from the nephrology clinic after he complained of chest pain and shortness of breath. In the emergency department the patient says he does not have any chest pain or shortness of breath. He does state that he had it earlier today and an episode yesterday. His is at the bedside, and states that his mental status is at baseline. He has had multiple falls over the past 1-2 weeks. He is taking by mouth. No nausea vomiting or diarrhea. Allergies: Coded Allergies: No Known Drug Allergies (Unverified , 02/14/18) Home Meds Active Scripts Quetiapine Fumarate (SEROQUEL) 25 Mg Tablet, 12.5 MG PO QAM, #15 TAB Prov:KARRIE FLAHERTY [facility] 03/03/18 Quetiapine Fumarate (SEROQUEL) 25 Mg Tablet, 25 MG PO QHS, #30 TAB Prov:KARRIE FLAHERTY [facility] 03/03/18 Apixaban (ELIQUIS) 2.5 Mg Tablet, 2.5 MG PO BID, #60 TAB Prov:KARRIE FLAHERTY [facility] 03/03/18 Hydralazine Hcl (HYDRALAZINE HCL) 50 Mg Tablet, 50 MG PO BID, #60 TAB Prov:TORRI LOWRY MD 02/12/18 Acetaminophen (TYLENOL) 325 Mg Tablet, 325 MG PO Q6H PRN for PAIN MDD 4000mg for 30 Days, TAB Prov:TORRI LOWRY MD 02/12/18 Reported Medications Tramadol Hcl (TRAMADOL HCL) 50 Mg Tablet, 50-100 MG PO Q4-6H, TAB 03/22/18 Triamcinolone Acetonide 0.1% Cr 15 Gm Tube (TRIAMCINOLONE ACETONIDE 0.1% CREAM) 15 Gm Cream..g., 1 APPLIC TP BID, TUBE 02/10/18 Simvastatin (SIMVASTATIN) 40 Mg Tablet, 40 MG PO HS, TAB 02/10/18 Insulin Glargine 100 Un/Ml Pen (LANTUS SOLOSTAR PEN) 100 Unit/1 Ml Insuln.pen, 27 UNIT SQ QHS, ML 02/10/18 Doxazosin Mesylate (DOXAZOSIN MESYLATE) 8 Mg Tablet, 8 MG PO HS 02/10/18 Amlodipine Besylate (AMLODIPINE BESYLATE) 10 Mg Tablet, 1 TAB PO QDAY, TAB 02/10/18 Insulin Aspart 100 Un/Ml Pen (NOVOLOG FLEXPEN) 100 Unit/1 Ml Insuln.pen, 4 UNIT SQ TID, ML With meals. 11/01/17 Nitroglycerin (NITROSTAT) 0.4 Mg Subl, 0.4 MG SL Q5MIN 11/01/17 Clobetasol Propionate/Emoll (CLOBETASOL EMOLLIENT 0.05% CRM) 15 Gm Cream..g., 0 TP BID 11/01/17 Calcitriol (CALCITRIOL) 0.25 Mcg Cap, 0.25 MCG PO 5 times a week, CAP 11/01/17 Metoprolol Succinate (TOPROL XL) 100 Mg Tab.er.24h, 1 TAB PO QDAY, TAB 08/13/16 Famotidine (FAMOTIDINE) 20 Mg Tablet, 20 MG PO QDAY, TAB 06/08/16 Oxygen (OXYGEN) 2 L Inha, 2 L INH HS PRN for SEE COMMENT, L 12/06/14 Discontinued Reported Medications Benazepril Hcl (BENAZEPRIL HCL) 40 Mg Tablet, 40 MG PO BID, TAB 11/01/17 Reviewed Nurses Notes: Yes Old Medical Records Reviewed: Yes Hx Smoking: Yes Smoking Status: Never Smoker Exposure to Second Hand Smoke?: No Hx Substance Use Disorder: No Hx Alcohol Use: Yes (Yes beer & Gin) Constitutional Vital Sign - Last 24 Hours 03/22/18 03/22/18 03/22/18 03/22/18 15:55 16:05 16:05 16:10 Temp 98.2 Pulse ??? 60 60 Resp 12 B/P (MAP) 132/59 132/59 (83) Pulse Ox 86 95 O2 Delivery Room Air 03/22/18 03/22/18 03/22/18 03/22/18 16:20 16:24 16:25 16:40 Pulse 60 60 Resp 22 24 B/P (MAP) 121/54 (76) 131/63 (85) Pulse Ox 94 94 O2 Flow Rate 4.0 03/22/18 03/22/18 03/22/18 03/22/18 16:55 17:00 17:10 17:25 Pulse 60 60 60 Resp 25 20 9 B/P (MAP) 141/69 (93) Pulse Ox 94 96 96 03/22/18 17:40 Pulse 60 Resp 19 B/P (MAP) 118/58 (78) Pulse Ox 93 Physical Exam General Appearance: The patient is alert, has no immediate need for airway protection and no current signs of toxicity. Eyes: Pupils equal and round no injection. Respiratory: Chest is non tender, lungs are clear to auscultation. Cardiac: irregular rate and rhythm Gastrointestinal: Abdomen is soft and non tender, no masses, bowel sounds normal. Musculoskeletal: Neck: Neck is supple and non tender. Extremities have full range of motion and are non tender. Skin: multiple areas of skin tears DIFFERENTIAL DIAGNOSIS: After history and physical exam differential diagnosis was considered for uti, acs, pe, other infection Medical Decision Making Data Points Result Diagram: 03/22/18 1610 03/22/18 1610 Laboratory Hematology Test 03/22/18 16:10 03/22/18 17:04 Red Blood Count 4.42 M/uL (4.00-5.60) Mean Corpuscular Volume 86.3 fL (80.0-96.0) Mean Corpuscular Hemoglobin 28.4 pg (26.0-33.0) Mean Corpuscular Hemoglobin Concent 32.9 g/dL (32.0-36.0) Red Cell Distribution Width 14.9 % (11.5-14.5) Mean Platelet Volume 7.8 fL (7.2-11.1) Neutrophils (%) (Auto) 76.6 % (39.4-72.5) Lymphocytes (%) (Auto) 10.5 % (17.6-49.6) Monocytes (%) (Auto) 11.2 % (4.1-12.4) Eosinophils (%) (Auto) 0.9 % (0.4-6.7) Basophils (%) (Auto) 0.8 % (0.3-1.4) Nucleated RBC Relative Count (auto) 0.1 /100WBC Neutrophils # (Auto) 8.0 K/uL (2.0-7.4) Lymphocytes # (Auto) 1.1 K/uL (1.3-3.6) Monocytes # (Auto) 1.2 K/uL (0.3-1.0) Eosinophils # (Auto) 0.1 K/uL (0.0-0.5) Basophils # (Auto) 0.1 K/uL (0.0-0.1) Nucleated RBC Absolute Count (auto) 0.01 K/uL D-Dimer Quantitative (PE/DVT) 1.47 ug/ml (0-0.50) Sodium Level 141 mmol/L (137-145) Potassium Level 5.4 mmol/L (3.5-5.0) Chloride Level 105 mmol/L (98-107) Carbon Dioxide Level 26 mmol/L (22-30) Blood Urea Nitrogen 72 mg/dl (9-21) Creatinine 3.70 mg/dl (0.66-1.25) Glomerular Filtration Rate Calc 15.8 Random Glucose 257 mg/dl (75-110) Calcium Level 10.4 mg/dl (8.4-10.2) Total Bilirubin 0.3 mg/dl (0.2-1.3) Aspartate Amino Transf (AST/SGOT) 19 U/L (0-35) Alanine Aminotransferase (ALT/SGPT) 23 U/L (0-56) Alkaline Phosphatase 80 U/L (0-126) Troponin I 0.052 ng/ml Total Protein 7.1 g/dl (6.3-8.2) Albumin 3.7 g/dl (3.5-5.0) Urine Color Yellow Urine Clarity Turbid Urine pH 5.0 pH (4.8-9.5) Urine Specific [place] 1.012 Urine Protein 100 mg/dL (NEGATIVE) Urine Glucose (UA) Negative mg/dL (NEGATIVE) Urine Ketones Negative mg/dL (NEGATIVE) Urine Blood Negative (NEGATIVE) Urine Nitrite Negative (NEGATIVE) Urine Bilirubin Negative (NEGATIVE) Urine Urobilinogen Negative mg/dL (0.2-1.9) Urine Leukocyte Esterase Large (NEGATIVE) Urine RBC 12 /HPF (0-2/HPF) Urine WBC 933 /HPF (0-5/HPF) Urine WBC Clumps Many /HPF Urine Squamous Epithelial Cells None /LPF (</=FEW) Urine Bacteria Few /HPF (NONE-FEW) Urine Mucus None /HPF (NONE-FEW) Chemistry Test 03/22/18 16:10 03/22/18 17:04 White Blood Count 10.5 k/uL (4.5-11.0) Red Blood Count 4.42 M/uL (4.00-5.60) Hemoglobin 12.5 g/dL (14.0-18.0) Hematocrit 38.1 % (42.0-52.0) Mean Corpuscular Volume 86.3 fL (80.0-96.0) Mean Corpuscular Hemoglobin 28.4 pg (26.0-33.0) Mean Corpuscular Hemoglobin Concent 32.9 g/dL (32.0-36.0) Red Cell Distribution Width 14.9 % (11.5-14.5) Platelet Count 317 K/uL (150-450) Mean Platelet Volume 7.8 fL (7.2-11.1) Neutrophils (%) (Auto) 76.6 % (39.4-72.5) Lymphocytes (%) (Auto) 10.5 % (17.6-49.6) Monocytes (%) (Auto) 11.2 % (4.1-12.4) Eosinophils (%) (Auto) 0.9 % (0.4-6.7) Basophils (%) (Auto) 0.8 % (0.3-1.4) Nucleated RBC Relative Count (auto) 0.1 /100WBC Neutrophils # (Auto) 8.0 K/uL (2.0-7.4) Lymphocytes # (Auto) 1.1 K/uL (1.3-3.6) Monocytes # (Auto) 1.2 K/uL (0.3-1.0) Eosinophils # (Auto) 0.1 K/uL (0.0-0.5) Basophils # (Auto) 0.1 K/uL (0.0-0.1) Nucleated RBC Absolute Count (auto) 0.01 K/uL D-Dimer Quantitative (PE/DVT) 1.47 ug/ml (0-0.50) Glomerular Filtration Rate Calc 15.8 Calcium Level 10.4 mg/dl (8.4-10.2) Total Bilirubin 0.3 mg/dl (0.2-1.3) Aspartate Amino Transf (AST/SGOT) 19 U/L (0-35) Alanine Aminotransferase (ALT/SGPT) 23 U/L (0-56) Alkaline Phosphatase 80 U/L (0-126) Troponin I 0.052 ng/ml Total Protein 7.1 g/dl (6.3-8.2) Albumin 3.7 g/dl (3.5-5.0) Urine Color Yellow Urine Clarity Turbid Urine pH 5.0 pH (4.8-9.5) Urine Specific [place] 1.012 Urine Protein 100 mg/dL (NEGATIVE) Urine Glucose (UA) Negative mg/dL (NEGATIVE) Urine Ketones Negative mg/dL (NEGATIVE) Urine Blood Negative (NEGATIVE) Urine Nitrite Negative (NEGATIVE) Urine Bilirubin Negative (NEGATIVE) Urine Urobilinogen Negative mg/dL (0.2-1.9) Urine Leukocyte Esterase Large (NEGATIVE) Urine RBC 12 /HPF (0-2/HPF) Urine WBC 933 /HPF (0-5/HPF) Urine WBC Clumps Many /HPF Urine Squamous Epithelial Cells None /LPF (</=FEW) Urine Bacteria Few /HPF (NONE-FEW) Urine Mucus None /HPF (NONE-FEW) Coagulation Test 03/22/18 16:10 D-Dimer Quantitative (PE/DVT) 1.47 ug/ml Urinalysis Test 03/22/18 17:04 Urine Color Yellow Urine Clarity Turbid Urine pH 5.0 pH (4.8-9.5) Urine Specific [place] 1.012 Urine Protein 100 mg/dL (NEGATIVE) Urine Glucose (UA) Negative mg/dL (NEGATIVE) Urine Ketones Negative mg/dL (NEGATIVE) Urine Blood Negative (NEGATIVE) Urine Nitrite Negative (NEGATIVE) Urine Bilirubin Negative (NEGATIVE) Urine Urobilinogen Negative mg/dL (0.2-1.9) Urine Leukocyte Esterase Large (NEGATIVE) Urine RBC 12 /HPF (0-2/HPF) Urine WBC 933 /HPF (0-5/HPF) Urine WBC Clumps Many /HPF Urine Squamous Epithelial Cells None /LPF (</=FEW) Urine Bacteria Few /HPF (NONE-FEW) Urine Mucus None /HPF (NONE-FEW) EKG/Imaging Imaging Results: CT scan of the head was obtained. The results of the study are no acute findings. The study was read by the radiologist. I viewed the images myself on the PACS system. ED Course/Re-evaluation ED Course Multiple chronic medical problems to include renal insufficiency. Currently resides at the [facility]. Patient states that he does not have chest pain or SOB. He complained of that in the nephrology clinic. Also seems more unsteady on his feet for the past 1-2 weeks. D-dimer is positive, but I had a long talk with the patient's . He is already on Eliquis and can not go back to warfarin, b/c he is refusing blood draws. She states that he would not want an IVC filter or a cardiac catheterization. Patient has a UTI, but without fever or mental status changes I think it is reasonable for him to go back to the [facility] on oral antibiotics. He was given a dose of Rocephin in the ED. I think his worsening renal function is a combination of dehydration from decreased PO and possibly UTI. His creatnine can be trended as an outpt. I think given his dementia, he would do better back at the [facility] rather than being in the hospital. I will discharge him on Keflex. A urine culture is pending. Decision to Disposition Date: Mar 22, 2018 Decision to Disposition Time: 18:08 Depart Departure Latest Vital Signs Vital Signs Date Time Temp Pulse Resp B/P (MAP) Pulse Ox O2 Delivery O2 Flow Rate FiO2 03/22/18 17:40 60 19 118/58 (78) 93 03/22/18 16:24 4.0 03/22/18 16:05 98.2 Room Air Impression: Primary Impression: UTI (urinary tract infection) Condition: Improved Disposition: HOME OR SELF-CARE Referrals: ERROL WRIGHT DO (PCP) New Scripts Cephalexin Monohydrate (CEPHALEXIN) 500 Mg Cap 500 MG PO Q8H for 10 Days, #30 CAP 0 Refills Prov: NANCY HOPE MD 03/22/18 Patient Instructions: Urinary Tract Infection in Men (ED) Problem Qualifiers Primary Impression: UTI (urinary tract infection) Urinary tract infection type: site unspecified Hematuria presence: without hematuria Qualified Codes: N39.0 - Urinary tract infection, site not specified NANCY HOPE MD Mar 22, 2018 16:15
[2018-03-22 16:37] LABS: PLATELET COUNT, AUTOMATED 317 K/uL (150-450)
[2018-03-22] MEDS ORDERED: TRAM-420 PO (16:45)
--- NOTE | 2018-03-22 16:50 | RADIOLOGY IMAGING REPORT ---
FACILITY: [facility] PATIENT NAME: Pawel Azul : 1935 MR: [id number] V: [id number] EXAM DATE: ORDERING PHYSICIAN: NANCY HOPE TECHNOLOGIST: Location: [facility] Patient: Pawel Azul : 1935 Visit/Account:[id number] Date of Sevice: 03/22/2018 Exam type: CHEST SINGLE AP History: Chest pain Comparison: February 14, 2018. Findings: The study is limited as the patient's chin is slumped over the upper thorax. Although the visualized lung torres there is no gross evidence of consolidation or pleural effusions or pulmonary edema. Ca rdiac silhouette is markedly enlarged but unchanged. Dual lead cardiac pacemaker again noted IMPRESSION: 1. No acute cardiopulmonary process is seen although study limited due to overlapping shadows in the upper thorax from the patient's chin Report Dictated By: Astrid Kitchen MD at 03/22/2018 4:44 PM Report E-Signed By: Astrid Kitchen MD at 03/22/2018 4:46 PM WSN:[email or web address]
--- NOTE | 2018-03-22 17:41 | RADIOLOGY IMAGING REPORT ---
FACILITY: [facility] PATIENT NAME: Pawel Azul : 1935 MR: [id number] V: [id number] EXAM DATE: ORDERING PHYSICIAN: NANCY HOPE TECHNOLOGIST: Location: [facility] [place] Patient: Pawel Azul : 1935 Visit/Account:[id number] Date of Sevice: 03/22/2018 EXAMINATION: Head CT without intravenous contrast HISTORY: Fall, taking eloquence TECHNIQUE: Contiguous axial images were obtained from the skull base to the vertex without intraven ous contrast. Sagittal and coronal reformatted images are also submitted. Dose Lowering Technique One of the following dose optimization techniques was utilized in the performance of this exam: Autom ated exposure control; adjustment of the mA and/or kV according to the patient's size; or use of an i terative reconstruction technique. Specific details can be referenced in the facility's radiology C T exam operational policy. COMPARISON: February 14, 2018 FINDINGS: Brain volume: There is moderate diffuse central cortical atrophy present Ventricles: As above Acute ischemic changes: None. Hemorrhage: None. Masses / edema: None. Corado-white: Negative. White matter: Patchy hypodensities are seen in the periventricular white matter similar to the prior study likely related to a chronic small vessel ischemia. Several scattered lacunar infarcts are aga in seen Vessels: There are calcifications in the carotid siphons and in the vertebral arteries bilaterally Extra-axial: Negative. Calvarium / scalp: Negative. Skull base / visualized face: Negative. Visualized sinuses / orbits: Negative. IMPRESSION: Mild chronic microischemic changes are seen in the periventricular white matter in several small scat tered lacunar infarcts again identified although no acute intracranial process is seen Report Dictated By: Astrid Kitchen MD at 03/22/2018 5:33 PM Report E-Signed By: Astrid Kitchen MD at 03/22/2018 5:38 PM WSN:[email or web address]
[2018-03-22] MEDS ORDERED: NS(*) 0.9% 500 ML BAG 500 ML IV ONE (17:50)
[2018-03-22] MEDS ORDERED: cefTRIAXone 1 GM VIAL IVP ONE (17:50)
[2018-03-22] MEDS ORDERED: CEPH500C24 PO (18:10)
[2018-03-22 18:20] VITALS: BP 109/55
--- NOTE | 2018-03-23 10:35 | EKG ---
FACILITY: [facility] PATIENT NAME: KATHYA BRYAN : [id number] MR: [id number] V: [id number] EXAM DATE: ORDERING PHYSICIAN: NANCY HOPE TECHNOLOGIST: ALMA ROSA Murphy Reason : CP Blood Pressure : / mmHG Vent. Rate : 060 BPM Atrial Rate : 300 BPM P-R Int : 000 ms QRS Dur : 148 ms QT Int : 462 ms P-R-T Axes : 000 017 094 degrees QTc Int : 462 ms Atrial flutter Left bundle branch block Abnormal ECG When compared with ECG of 14-FEB-2018 04:02, QRS axis shifted right No significant change was found Confirmed by Philipp Lindsey ([id number] on 03/23/2018 1:00:37 PM Referred By: Confirmed By:Philipp Barfield
== END 2018-03-22 18:50 | disposition home or self-care (01) ==
LOC: ER 16:22
DX: N39.0 Urinary tract infection, site not specified (principal); Z91.81 History of falling
CPT/HCPCS: 70450; 71045; 81001; 84484; 85025; 85379; 87077; 87088; 87186; 93005; 96361; 96374; 99284; J0696; J7040; 82040; 82247; 82310; 82374; 82435; 82565; 82947; 84075; 84132; 84155; 84295; 84450; 84460; 84520

== ENCOUNTER → 2018-04-04 | Outpatient (REF) | payer MEDICARE, BC ==
[2018-02-11 12:35] VITALS: BMI 27.0
[~2018-04-04] MED LIST changes: +CEPH500C24 PO
== END ==
LOC: ZZLCC 12:25
PROVIDERS: ATTEND Family Medicine
DX: E87.5 Hyperkalemia (principal)
CPT/HCPCS: 82310; 82374; 82435; 82565; 82947; 84132; 84295; 84520

== ENCOUNTER 2018-04-08 09:28 | Emergency (ER) | payer MEDICARE, BC ==
[2018-02-11 12:35] VITALS: Wt 78.9 kg
--- NOTE | 2018-04-08 09:31 | ER Report ---
History and Physical Time Seen By MD: 09:31 HPI/ROS CHIEF COMPLAINT: Unwitnessed fall HISTORY OF PRESENT ILLNESS: Patient is an 82-year-old male with multiple medical problems who presents to the emergency Department from [facility] after an unwitnessed fall in the shower this morning. Patient is unsure if he struck his head but states that he was "lying on the ground for an hour". Patient history provided by [facility] states that the patient was having hip pain it is unclear which hip was causing discomfort. Also complaining of lower back pain. Patient is anticoagulated with L Mauricio. Patient does have a advanced directive which shows that he is a DO NOT RESUSCITATE/DO NOT INTUBATE and not to receive any artificial nutrition. View of the electronic medical record shows the patient was here approximately one month ago was diagnosed with a urinary tract infection and treated as an outpatient with antibiotics. Patient does have a history of frequent falls. In the emergency department he denies having any hip pain he does report some low back pain. He denies headache or neck pain. He denies chest pain or abdominal pain. REVIEW OF SYSTEMS: Constitutional: No fever, no chills. Eyes: No discharge. ENT: No sore throat. Cardiovascular: No chest pain, no palpitations. Respiratory: No cough, no shortness of breath. Gastrointestinal: No abdominal pain, no vomiting. Genitourinary: No hematuria. Musculoskeletal: Lower back pain; negative for upper extremity pain and negative for headache negative for cervical or thoracic spine pain, negative hip pain or pelvic pain. Negative for lower extremity pain Skin: No rashes. Neurological: No headache. Allergies: Coded Allergies: No Known Drug Allergies (Unverified , 02/14/18) Home Meds Active Scripts Cephalexin Monohydrate (CEPHALEXIN) 500 Mg Cap, 500 MG PO Q8H for 10 Days, #30 CAP 0 Refills Prov:NANCY HOPE MD 03/22/18 Quetiapine Fumarate (SEROQUEL) 25 Mg Tablet, 12.5 MG PO QAM, #15 TAB Prov:KARRIE FLAHERTY 03/03/18 Quetiapine Fumarate (SEROQUEL) 25 Mg Tablet, 25 MG PO QHS, #30 TAB Prov:KARRIE FLAHERTY 03/03/18 Apixaban (ELIQUIS) 2.5 Mg Tablet, 2.5 MG PO BID, #60 TAB Prov:KARRIE FLAHERTY RESIDENTIAL TECH 03/03/18 Hydralazine Hcl (HYDRALAZINE HCL) 50 Mg Tablet, 50 MG PO BID, #60 TAB Prov:TORRI LOWRY MD 02/12/18 Acetaminophen (TYLENOL) 325 Mg Tablet, 325 MG PO Q6H PRN for PAIN MDD 4000mg for 30 Days, TAB Prov:TORRI LOWRY MD 02/12/18 Reported Medications Benazepril Hcl (BENAZEPRIL HCL) 40 Mg Tablet, 40 MG PO QDAY, TAB 04/08/18 Tramadol Hcl (TRAMADOL HCL) 50 Mg Tablet, 50-100 MG PO Q4-6H, TAB 03/22/18 Triamcinolone Acetonide 0.1% Cr 15 Gm Tube (TRIAMCINOLONE ACETONIDE 0.1% CREAM) 15 Gm Cream..g., 1 APPLIC TP BID, TUBE 02/10/18 Simvastatin (SIMVASTATIN) 40 Mg Tablet, 40 MG PO HS, TAB 02/10/18 Insulin Glargine 100 Un/Ml Pen (LANTUS SOLOSTAR PEN) 100 Unit/1 Ml Insuln.pen, 27 UNIT SQ QHS, ML 02/10/18 Doxazosin Mesylate (DOXAZOSIN MESYLATE) 8 Mg Tablet, 8 MG PO HS 02/10/18 Amlodipine Besylate (AMLODIPINE BESYLATE) 10 Mg Tablet, 1 TAB PO QDAY, TAB 02/10/18 Insulin Aspart 100 Un/Ml Pen (NOVOLOG FLEXPEN) 100 Unit/1 Ml Insuln.pen, 4 UNIT SQ TID, ML With meals. 11/01/17 Nitroglycerin (NITROSTAT) 0.4 Mg Subl, 0.4 MG SL Q5MIN 11/01/17 Clobetasol Propionate/Emoll (CLOBETASOL EMOLLIENT 0.05% CRM) 15 Gm Cream..g., 0 TP BID 11/01/17 Calcitriol (CALCITRIOL) 0.25 Mcg Cap, 0.25 MCG PO 5 times a week, CAP 11/01/17 Metoprolol Succinate (TOPROL XL) 100 Mg Tab.er.24h, 1 TAB PO QDAY, TAB 08/13/16 Oxygen (OXYGEN) 2 L Inha, 2 L INH HS PRN for SEE COMMENT, L 12/06/14 Discontinued Reported Medications Famotidine (FAMOTIDINE) 20 Mg Tablet, 20 MG PO QDAY, TAB 06/08/16 Past Medical/Surgical History Past medical history for renal mass, chronic kidney disease stage III GFR of 30- 59. History of multiple falls history of pneumonia history of Mobitz type I, history of coronary artery disease, type II diabetes, urinary tract infection. Patient is anticoagulated with Eliquis Hx Smoking: Yes Smoking Status: Never Smoker Exposure to Second Hand Smoke?: No Hx Substance Use Disorder: No Hx Alcohol Use: Yes (Yes beer & Gin) Constitutional Vital Sign - Last 24 Hours 04/08/18 09:27 Temp 98.8 Pulse 60 Resp 16 B/P (MAP) 155/76 Pulse Ox 97 O2 Delivery Room Air Physical Exam General/Constitutional: Patient is awake, alert, nontoxic and in no acute respiratory distress. Head: Normocephalic and atraumatic. Eyes: Conjunctival clear, Pupils are equal and reactive to light. Extraocular muscles are intact and symmetrical. Sclera are clear and anicteric. Ears:External canals are clear. Tympanic membranes are clear with normal landmarks and light reflex. Nares: No rhinorrhea or bleeding. Turbinates are pink and moist. Oropharyngeal: Mucous membranes are moist. There is no pharyngeal erythema or exudate. There are no palatal petechiae. Uvula is midline and symmetrical. Neck: Supple, no adenopathy. Cardiovascular: Heart is regular rate and rhythm without audible murmurs, rubs or gallops. Pulmonary: Lungs are clear to auscultation bilaterally. There are no wheezes, rales, or rhonchi. Chest rise is symmetrical Abdomen: Soft, nontender, no guarding or peritoneal signs. Extremities: No gross deformities, No peripheral cyanosis. Able to move all 4 extremities. Thoracic and lumbar spine reveal no palpable step-offs or pain elicited. Patient has normal range of motion of both hips negative pelvic tenderness with pelvic axial loading in multiple directions. Neuro: Alert, answers questions there is some dementia. Skin: No rashes, skin is warm dry and well perfused. Medical Decision Making Data Points Result Diagram: 04/08/1837 04/08/18 0937 Laboratory Hematology Test 04/08/18 09:37 04/08/18 09:55 Red Blood Count 4.46 M/uL (4.00-5.60) Mean Corpuscular Volume 87.0 fL (80.0-96.0) Mean Corpuscular Hemoglobin 27.8 pg (26.0-33.0) Mean Corpuscular Hemoglobin Concent 32.0 g/dL (32.0-36.0) Red Cell Distribution Width 15.9 % (11.5-14.5) Mean Platelet Volume 7.9 fL (7.2-11.1) Neutrophils (%) (Auto) 68.8 % (39.4-72.5) Lymphocytes (%) (Auto) 15.8 % (17.6-49.6) Monocytes (%) (Auto) 12.0 % (4.1-12.4) Eosinophils (%) (Auto) 2.7 % (0.4-6.7) Basophils (%) (Auto) 0.7 % (0.3-1.4) Nucleated RBC Relative Count (auto) 0.1 /100WBC Neutrophils # (Auto) 4.4 K/uL (2.0-7.4) Lymphocytes # (Auto) 1.0 K/uL (1.3-3.6) Monocytes # (Auto) 0.8 K/uL (0.3-1.0) Eosinophils # (Auto) 0.2 K/uL (0.0-0.5) Basophils # (Auto) 0.0 K/uL (0.0-0.1) Nucleated RBC Absolute Count (auto) 0.00 K/uL Prothrombin Time 13.6 seconds (12.0-14.4) Prothromb Time International Ratio 1.04 Activated Partial Thromboplast Time 36 seconds (23-35) Sodium Level 138 mmol/L (137-145) Potassium Level 4.6 mmol/L (3.5-5.0) Chloride Level 103 mmol/L (98-107) Carbon Dioxide Level 25 mmol/L (22-30) Blood Urea Nitrogen 46 mg/dl (9-21) Creatinine 2.60 mg/dl (0.66-1.25) Glomerular Filtration Rate Calc 23.7 Random Glucose 88 mg/dl (75-110) Calcium Level 10.5 mg/dl (8.4-10.2) Total Bilirubin 0.5 mg/dl (0.2-1.3) Aspartate Amino Transf (AST/SGOT) 28 U/L (0-35) Alanine Aminotransferase (ALT/SGPT) 28 U/L (0-56) Alkaline Phosphatase 74 U/L (0-126) Troponin I 0.040 ng/ml Total Protein 7.2 g/dl (6.3-8.2) Albumin 3.8 g/dl (3.5-5.0) Urine Color Yellow Urine Clarity Cloudy Urine pH 7.0 pH (4.8-9.5) Urine Specific Hersey 1.010 Urine Protein 30 mg/dL (NEGATIVE) Urine Glucose (UA) Negative mg/dL (NEGATIVE) Urine Ketones Negative mg/dL (NEGATIVE) Urine Blood Negative (NEGATIVE) Urine Nitrite Negative (NEGATIVE) Urine Bilirubin Negative (NEGATIVE) Urine Urobilinogen Negative mg/dL (0.2-1.9) Urine Leukocyte Esterase Large (NEGATIVE) Urine RBC 2 /HPF (0-2/HPF) Urine WBC 556 /HPF (0-5/HPF) Urine WBC Clumps Many /HPF Urine Squamous Epithelial Cells None /LPF (NONE-FEW) Urine Bacteria Negative /HPF (NONE-FEW) Urine Mucus None /HPF (NONE-FEW) Chemistry Test 04/08/18 09:37 04/08/18 09:55 White Blood Count 6.4 k/uL (4.5-11.0) Red Blood Count 4.46 M/uL (4.00-5.60) Hemoglobin 12.4 g/dL (14.0-18.0) Hematocrit 38.8 % (42.0-52.0) Mean Corpuscular Volume 87.0 fL (80.0-96.0) Mean Corpuscular Hemoglobin 27.8 pg (26.0-33.0) Mean Corpuscular Hemoglobin Concent 32.0 g/dL (32.0-36.0) Red Cell Distribution Width 15.9 % (11.5-14.5) Platelet Count 262 K/uL (150-450) Mean Platelet Volume 7.9 fL (7.2-11.1) Neutrophils (%) (Auto) 68.8 % (39.4-72.5) Lymphocytes (%) (Auto) 15.8 % (17.6-49.6) Monocytes (%) (Auto) 12.0 % (4.1-12.4) Eosinophils (%) (Auto) 2.7 % (0.4-6.7) Basophils (%) (Auto) 0.7 % (0.3-1.4) Nucleated RBC Relative Count (auto) 0.1 /100WBC Neutrophils # (Auto) 4.4 K/uL (2.0-7.4) Lymphocytes # (Auto) 1.0 K/uL (1.3-3.6) Monocytes # (Auto) 0.8 K/uL (0.3-1.0) Eosinophils # (Auto) 0.2 K/uL (0.0-0.5) Basophils # (Auto) 0.0 K/uL (0.0-0.1) Nucleated RBC Absolute Count (auto) 0.00 K/uL Prothrombin Time 13.6 seconds (12.0-14.4) Prothromb Time International Ratio 1.04 Activated Partial Thromboplast Time 36 seconds (23-35) Glomerular Filtration Rate Calc 23.7 Calcium Level 10.5 mg/dl (8.4-10.2) Total Bilirubin 0.5 mg/dl (0.2-1.3) Aspartate Amino Transf (AST/SGOT) 28 U/L (0-35) Alanine Aminotransferase (ALT/SGPT) 28 U/L (0-56) Alkaline Phosphatase 74 U/L (0-126) Troponin I 0.040 ng/ml Total Protein 7.2 g/dl (6.3-8.2) Albumin 3.8 g/dl (3.5-5.0) Urine Color Yellow Urine Clarity Cloudy Urine pH 7.0 pH (4.8-9.5) Urine Specific Hersey 1.010 Urine Protein 30 mg/dL (NEGATIVE) Urine Glucose (UA) Negative mg/dL (NEGATIVE) Urine Ketones Negative mg/dL (NEGATIVE) Urine Blood Negative (NEGATIVE) Urine Nitrite Negative (NEGATIVE) Urine Bilirubin Negative (NEGATIVE) Urine Urobilinogen Negative mg/dL (0.2-1.9) Urine Leukocyte Esterase Large (NEGATIVE) Urine RBC 2 /HPF (0-2/HPF) Urine WBC 556 /HPF (0-5/HPF) Urine WBC Clumps Many /HPF Urine Squamous Epithelial Cells None /LPF (NONE-FEW) Urine Bacteria Negative /HPF (NONE-FEW) Urine Mucus None /HPF (NONE-FEW) Coagulation Test 04/08/18 09:37 Prothrombin Time 13.6 seconds Prothromb Time International Ratio 1.04 Activated Partial Thromboplast Time 36 seconds Urinalysis Test 04/08/18 09:55 Urine Color Yellow Urine Clarity Cloudy Urine pH 7.0 pH (4.8-9.5) Urine Specific Hersey 1.010 Urine Protein 30 mg/dL (NEGATIVE) Urine Glucose (UA) Negative mg/dL (NEGATIVE) Urine Ketones Negative mg/dL (NEGATIVE) Urine Blood Negative (NEGATIVE) Urine Nitrite Negative (NEGATIVE) Urine Bilirubin Negative (NEGATIVE) Urine Urobilinogen Negative mg/dL (0.2-1.9) Urine Leukocyte Esterase Large (NEGATIVE) Urine RBC 2 /HPF (0-2/HPF) Urine WBC 556 /HPF (0-5/HPF) Urine WBC Clumps Many /HPF Urine Squamous Epithelial Cells None /LPF (NONE-FEW) Urine Bacteria Negative /HPF (NONE-FEW) Urine Mucus None /HPF (NONE-FEW) EKG/Imaging EKG Interpretation EKG shows atrial flutter with a ventricular rate of 60 bpm Monitor Interpretation: Atrial Flutter Imaging FACILITY: [facility] PATIENT NAME: Pawel Azul : 1935 MR: [id number] V: [id number] EXAM DATE: ORDERING PHYSICIAN: DARYL HAMILTON TECHNOLOGIST: Location: [facility] Patient: Pawel Azul : 1935 Visit/Account:[id number] Date of Sevice: 04/08/2018 C-SPINE W/O CONTRAST COMPARISONS: None. ADDITIONAL PERTINENT HISTORY: Fall TECHNIQUE: Multiple axial images were obtained from the skull base through the upper thoracic spine with coronal and sagittal reformatted images obtained without IV contrast. One of the following dose optimization techniques was utilized in the performance of this exam: Automated exposure control; adjustment of the mA and/or kV according to the patient's size; or use of an iterative reconstruction technique. Specific details can be referenced in the facility's radiology CT exam operational policy. FINDINGS. Vertebral body heights and alignment: Minimal anterior listhesis of C5 on C6. Vertebral bodies: Facet hypertrophic changes at multiple levels. No bony fractures. Disc spaces: Circumferential disc bulging involving the mid to lower cervical spine. Cranial cervical junction: Negative. Cervical thoracic junction: Negative. Surrounding soft tissues: Calcified atherosclerotic plaque involving the proximal internal carotid arteries. Calcification at the origins of the great vessels. Lung apices: Pleural-parenchymal changes involving both lung apices. IMPRESSION: 1. Spondylitic change involving the cervical spine. 2. No acute appearing bony abnormalities. Report Dictated By: Franklin Enrique MD at 04/08/2018 11:03 AM Report E-Signed By: Franklin Enrique MD at 04/08/2018 11:06 AM WSN:[id number] FACILITY: [facility] PATIENT NAME: Pawel Azul : 1935 MR: [id number] V: [id number] EXAM DATE: ORDERING PHYSICIAN: DARYL HAMILTON TECHNOLOGIST: Location: [facility] Patient: Pwael Azul : 1935 Visit/Account:[id number] Date of Sevice: 04/08/[address] scan without contrast COMPARISONS: Head CT scan without contrast dated March 22, 2018 ADDITIONAL PERTINENT HISTORY: Fall TECHNIQUE: Multiple axial images were obtained from the skull base to the vertex without IV contrast. One of the following dose optimization techniques was utilized in the performance of this exam: Automated exposure control; adjustment of the mA and/or kV according to the patient's size; or use of an iterative reconstruction technique. Specific details can be referenced in the facility's radiology CT exam operational policy. FINDINGS: Midline shift: Negative Ventricles: Mild enlargement of the lateral and third ventricles. Otherwise negative Brain parenchyma: Patchy hypoattenuation within the periventricular and subcortical white matter, nonspecific but likely representing small vessel ischemic change on a chronic basis. No intraparenchymal hemorrhage. Extra-axial spaces: Mild cerebral atrophy. Intracranial vasculature: Cavernous internal carotid and distal vertebral artery calcifications. Otherwise negative Osseous structures: Negative Paranasal sinuses and mastoid air cells: Negative Surrounding soft tissues and orbits: Negative IMPRESSION: 1. Age related changes as described above. 2. No evidence of acute intracranial pathology. Report Dictated By: Franklin Enrique MD at 04/08/2018 10:59 AM Report E-Signed By: Franklin Enrique MD at 04/08/2018 11:03 AM WSN:[id number] FACILITY: [facility] PATIENT NAME: Pawel Azul : 1935 MR: [id number] V: [id number] EXAM DATE: [id number] ORDERING PHYSICIAN: DARYL HAMILTON TECHNOLOGIST: Location: [facility] Patient: Pawel Azul : 1935 Visit/Account:[id number] Date of Sevice: 04/08/2018 Two-view lumbar spine COMPARISONS: March 30, 2017 ADDITIONAL PERTINENT HISTORY: Fall FINDINGS: Vertebral body heights and alignments: Mild retrolisthesis of L3 on L4 and L2 on L3. Vertebral bodies: Endplate sclerosis with anteriorly and posteriorly directed osteophytes. Facet hypertrophic changes involving the lumbar spine. Disc spaces: Disc space narrowing involving the lower lumbar spine. Visualized bony pelvis: Negative. Surrounding soft tissues: Atherosclerotic disease of the abdominal aorta. IMPRESSION: 1. Multilevel spondylitic change, stable from previous exam. 2. No acute appearing bony abnormalities. Report Dictated By: Franklin Enrique MD at 04/08/2018 10:57 AM Report E-Signed By: Franklin Enrique MD at 04/08/2018 10:59 AM WSN:[id number] ED Course/Re-evaluation ED Course 04/08/2018 9:52:11 am plan at this time will be medical screening exam including CT of the head will also perform CT of the C-spine. X-ray of the lumbar spine. On exam patient has no pelvic or hip pain. I do not believe imaging is required at this time. Decision to Disposition Date: Apr 08, 2018 Decision to Disposition Time: 11:21 Depart Departure Latest Vital Signs Vital Signs Date Time Temp Pulse Resp B/P (MAP) Pulse Ox O2 Delivery O2 Flow Rate FiO2 04/08/18 09:27 98.8 60 16 155/76 97 Room Air Impression: Primary Impression: Fall Condition: Improved Disposition: HOME OR SELF-CARE Referrals: ERROL WRIGHT DO (PCP) Patient Instructions: Fall Prevention for Older Adults (ED) Additional Instructions: Continue your outpatient antibiotics as directed Continue all of your other prescription medications as directed Problem Qualifiers Primary Impression: Fall Encounter type: initial encounter Qualified Codes: W19.XXXA - Unspecified fall, initial encounter DARYL HAMILTON MD Apr 08, 2018 09:31
[2018-04-08 09:56] LABS: PLATELET COUNT, AUTOMATED 262 K/uL (150-450)
[2018-04-08 10:11] LABS: INR 1.04
--- NOTE | 2018-04-08 10:16 | EKG ---
FACILITY: [facility] PATIENT NAME: KATHYA BRYAN : [id number] MR: [id number] V: [id number] EXAM DATE: ORDERING PHYSICIAN: DARYL HAMILTON TECHNOLOGIST: Test Reason : fall Blood Pressure : / mmHG Vent. Rate : 060 BPM Atrial Rate : 277 BPM P-R Int : 000 ms QRS Dur : 152 ms QT Int : 474 ms P-R-T Axes : 000 021 088 degrees QTc Int : 474 ms Atrial flutter Left bundle branch block Abnormal ECG When compared with ECG of 22-MAR-2018 16:09, No significant change was found Confirmed by PHYLICIA JONES ([id number]) on 04/09/2018 4:30:34 AM Referred By: Confirmed By:PHYLICIA JONES
[2018-04-08] MEDS ORDERED: BENA40TA53 PO (10:50)
--- NOTE | 2018-04-08 11:03 | RADIOLOGY IMAGING REPORT ---
[place] [facility] [place] NAME: Pawel Azul : 1935 MR: [id number] V: [id number] EXAM DATE: ORDERING PHYSICIAN: DARYL HAMILTON TECHNOLOGIST: Location: [facility] [place] Patient: Pawel Azul : 1935 Visit/Account:[id number] Date of Sevice: 04/08/2018 Two-view lumbar spine COMPARISONS: March 30, 2017 ADDITIONAL PERTINENT HISTORY: Fall FINDINGS: Vertebral body heights and alignments: Mild retrolisthesis of L3 on L4 and L2 on L3. Vertebral bodies: Endplate sclerosis with anteriorly and posteriorly directed osteophytes. Facet hype rtrophic changes involving the lumbar spine. Disc spaces: Disc space narrowing involving the lower lumbar spine. Visualized bony pelvis: Negative. Surrounding soft tissues: Atherosclerotic disease of the abdominal aorta. IMPRESSION: 1. Multilevel spondylitic change, stable from previous exam. 2. No acute appearing bony abnormalities. Report Dictated By: Franklin Enrique MD at 04/08/2018 10:57 AM Report E-Signed By: Franklin Enrique MD at 04/08/2018 10:59 AM WSN:[id number]
--- NOTE | 2018-04-08 11:07 | RADIOLOGY IMAGING REPORT ---
FACILITY: [facility] [place] PATIENT NAME: Pawel Azul : 1935 MR: [id number] V: [id number] EXAM DATE: ORDERING PHYSICIAN: DARYL HAMILTON [place]CHNOLOGIST: [place] [facility] [place]awel [place] : 1935 Visit/Account:[id number] Date of Sevice: 04/08/[address] scan without contrast COMPARISONS: Head CT scan without contrast dated March 22, 2018 ADDITIONAL PERTINENT HISTORY: Fall TECHNIQUE: Multiple axial images were obtained from the skull base to the vertex without IV contrast . One of the following dose optimization techniques was utilized in the performance of this exam: Aut omated exposure control; adjustment of the mA and/or kV according to the patient's size; or use of an iterative reconstruction technique. Specific details can be referenced in the facility's radiology CT exam operational policy. FINDINGS: Midline shift: Negative Ventricles: Mild enlargement of the lateral and third ventricles. Otherwise negative Brain parenchyma: Patchy hypoattenuation within the periventricular and subcortical white matter, no nspecific but likely representing small vessel ischemic change on a chronic basis. No intraparenchyma l hemorrhage. Extra-axial spaces: Mild cerebral atrophy. Intracranial vasculature: Cavernous internal carotid and distal vertebral artery calcifications. Oth erwise negative Osseous structures: Negative Paranasal sinuses and mastoid air cells: Negative Surrounding soft tissues and orbits: Negative IMPRESSION: 1. Age related changes as described above. 2. No evidence of acute intracranial pathology. Report Dictated By: Franklin Enrique MD at 04/08/2018 10:59 AM Report E-Signed By: Franklin Enrique MD at 04/08/2018 11:03 AM WSN:[id number]
--- NOTE | 2018-04-08 11:09 | RADIOLOGY IMAGING REPORT ---
FACILITY: [facility] [place] PATIENT NAME: Pawel Azul : 1935 MR: [id number] V: [id number] EXAM DATE: ORDERING PHYSICIAN: DARYL HAMILTON TECHNOLOGIST: Location: [facility] [place] Patient: Pawel Azul : 1935 Visit/Account:[id number] Date of Sevice: 04/08/2018 C-SPINE W/O CONTRAST COMPARISONS: None. ADDITIONAL PERTINENT HISTORY: Fall TECHNIQUE: Multiple axial images were obtained from the skull base through the upper thoracic spine with coronal and sagittal reformatted images obtained without IV contrast. One of the following dose optimization techniques was utilized in the performance of this exam: Automated exposure control; adj ustment of the mA and/or kV according to the patient's size; or use of an iterative reconstruction t echnique. Specific details can be referenced in the facility's radiology CT exam operational policy. FINDINGS. Vertebral body heights and alignment: Minimal anterior listhesis of C5 on C6. Vertebral bodies: Facet hypertrophic changes at multiple levels. No bony fractures. Disc spaces: Circumferential disc bulging involving the mid to lower cervical spine. Cranial cervical junction: Negative. Cervical thoracic junction: Negative. Surrounding soft tissues: Calcified atherosclerotic plaque involving the proximal internal carotid ar teries. Calcification at the origins of the great vessels. Lung apices: Pleural-parenchymal changes involving both lung apices. IMPRESSION: 1. Spondylitic change involving the cervical spine. 2. No acute appearing bony abnormalities. Report Dictated By: Franklin Enrique MD at 04/08/2018 11:03 AM Report E-Signed By: Franklin Enrique MD at 04/08/2018 11:06 AM WSN:[id number]
[2018-04-08 11:30] VITALS: BP 143/66
== END 2018-04-08 12:30 | disposition home or self-care (01) ==
LOC: ER 09:35
DX: M54.5 Low back pain (principal); Z79.01 Long term (current) use of anticoagulants; I48.92 Unspecified atrial flutter; I44.7 Left bundle-branch block, unspecified; R94.31 Abnormal electrocardiogram [ECG] [EKG]; F03.90 Unspecified dementia, unspecified severity, without behavioral disturbance, psychotic disturbance, mood disturbance, and anxiety; W19.XXXA Unspecified fall, initial encounter; Y92.121 Bathroom in nursing home as the place of occurrence of the external cause
CPT/HCPCS: 70450; 72100; 72125; 81001; 82040; 82247; 82310; 82374; 82435; 82565; 82947; 84075; 84132; 84155; 84295; 84450; 84460; 84484; 84520; 85025; 85610; 85730; 87077; 87088; 87186; 93005; 99285

== ENCOUNTER → 2018-04-08 | Outpatient (CLI) | payer BC, MEDICARE, OTHER ==
[2018-02-11 12:35] VITALS: BMI 27.0
== END ==
LOC: AMB 09:05
PROVIDERS: ATTEND Nurse Practitioner
DX: M25.551 Pain in right hip (principal); W05.0XXA Fall from non-moving wheelchair, initial encounter
CPT/HCPCS: A0425; A0429

== ENCOUNTER → 2018-05-09 | Outpatient (REF) | payer MEDICARE, BC ==
[2018-02-11 12:35] VITALS: BMI 27.0
== END ==
LOC: ZZLCC 20:41
PROVIDERS: ATTEND Family Medicine
DX: L03.116 Cellulitis of left lower limb (principal)
CPT/HCPCS: 85027

== ENCOUNTER → 2018-05-10 | Outpatient (CLI) | payer MEDICARE, BC ==
[2018-02-11 12:35] VITALS: BMI 27.0
--- NOTE | 2018-05-10 22:48 | RADIOLOGY IMAGING REPORT ---
FACILITY: [facility] PATIENT NAME: Pawel Azul : 1935 MR: [id number] V: [id number] EXAM DATE: ORDERING PHYSICIAN: ERROL WRIGHT TECHNOLOGIST: Location: [facility] Patient: Pawel Azul : 1935 Visit/Account:[id number] Date of Sevice: 05/10/2018 LEFT ANKLE: Indication: Injury. Technique: 3 views were obtained. Comparison: None. Findings: A surgical plate and multiple screws are present in the distal fibula. The hardware appears intact. The distal fibula is in satisfactory alignment. There is an ununited fracture across the medial malleolus. The talus appears intact, and there is no evidence of subluxation. No other acute skeletal deformity is identified. There is moderate spur formation on the calcaneus. T he skeletal structures are otherwise unremarkable, as visualized. There is localized soft tissue swelling on the medial aspect of the ankle, with some air in the soft tissues. There is diffuse atherosclerotic calcification in the tibial and pedal arteries. IMPRESSION: Ununited fracture of the distal tibia. There is localized soft tissue swelling and air in the medial soft tissues. Report Dictated By: Torsten Mary MD at 05/10/2018 10:39 PM Report E-Signed By: Torsten Mary MD at 05/10/2018 10:45 PM WSN:[id number]
--- NOTE | 2018-05-10 22:54 | RADIOLOGY IMAGING REPORT ---
FACILITY: [facility] - [place] PATIENT NAME: Pawel Azul : 1935 MR: [id number] V: [id number] EXAM DATE: ORDERING PHYSICIAN: ERROL WRIGHT TECHNOLOGIST: Location: [facility] Patient: Pawel Azul : 1935 Visit/Account:[id number] Date of Sevice: 05/10/2018 LEFT LOWER LEG: Indication: Open fracture. Concern for osteomyelitis. Technique: AP and lateral views were obtained. Comparison: None. Findings: The femoral and tibial components of a total knee prosthesis appear intact and unremarkable . A surgical plate and multiple screws are present in the distal fibula. The hardware appears intact. The fibula is in satisfactory alignment. There is an ununited fracture of the medial malleolus, with minimal displacement. There is localized soft tissue swelling and air medial to the ankle. There are no definite signs of osteomyelitis. The visualized skeletal structures are otherwise intact. There is diffuse atherosclerotic calcification in the popliteal and tibial arteries. IMPRESSION: Ununited fracture of the distal tibia. There is localized soft tissue swelling and air in the soft tissues. There are no definite signs of osteomyelitis. Report Dictated By: Torsten Mary MD at 05/10/2018 10:45 PM Report E-Signed By: Torsten Mary MD at 05/10/2018 10:50 PM WSN:[id number]
== END ==
LOC: RAD 17:26
PROVIDERS: ATTEND Family Medicine
DX: S82.302E Unspecified fracture of lower end of left tibia, subsequent encounter for open fracture type I or II with routine healing (principal)

== ENCOUNTER → 2018-05-23 | Outpatient (REF) | payer BC, MEDICARE, OTHER ==
[2018-02-11 12:35] VITALS: BMI 27.0
== END ==
LOC: ZZSENDIN 10:47
PROVIDERS: ATTEND Family Medicine
DX: S91.002D Unspecified open wound, left ankle, subsequent encounter (principal); B96.89 Other specified bacterial agents as the cause of diseases classified elsewhere
CPT/HCPCS: 87071; 87073; 87077; 87186

== ENCOUNTER → 2018-06-01 | Outpatient (CLI) | payer OTHER ==
[2018-02-11 12:35] VITALS: BMI 27.0
--- NOTE | 2018-06-01 18:09 | RADIOLOGY IMAGING REPORT ---
FACILITY: [facility] PATIENT NAME: Pawel Azul : 1935 MR: [id number] V: [id number] EXAM DATE: ORDERING PHYSICIAN: ERROL WRIGHT TECHNOLOGIST: Location: Patient: Pawel Azul : 1935 Visit/Account:[id number] Date of Sevice: 06/01/2018 Exam type: PICC LINE PLACEMENT, PICC LINE INSERTION History: Need for IV access, long-term antibiotics Comparison: None. Findings: Informed consent was obtained. The patient's left arm was prepped and draped usual sterile fashion. Local anesthesia was accomplished with 1% lidocaine. Utilizing both sonographic and fluoroscopic gu idance a 32 cm long trimmed 4 Yi single lumen power PICC was inserted via the patent left basilic vein with the distal tip resting in the superior vena cava. The PICC line was flushed with 5 mL of saline flush. The proximal portion PICC line was adhered the patient's arm the sterile dressing. Th e sonographic images were saved to PACS. The procedure was accomplished without apparent complicatio n. The fluoroscopy dose area product was 709.48 micro-[place] per meter squared. IMPRESSION: 1. Successful placement of a 32 cm long trimmed 4 Yi single lumen power PICC inserted via the patent left basilic vein with the distal tip resting in superior vena cava Report Dictated By: Astrid Kitchen MD at 06/01/2018 6:03 PM Report E-Signed By: Astrid Kitchen MD at 06/01/2018 6:06 PM WSN:[email or web address]
--- NOTE | 2018-06-01 18:10 | RADIOLOGY IMAGING REPORT ---
FACILITY: [facility] - [place] PATIENT NAME: Pawel Azul : 1935 MR: [id number] V: [id number] EXAM DATE: ORDERING PHYSICIAN: ERROL WRIGHT TECHNOLOGIST: Location: [facility] [place] Patient: Pawel Azul : 1935 Visit/Account:[id number] Date of Sevice: 06/01/2018 Exam type: PICC LINE PLACEMENT, PICC LINE INSERTION History: Need for IV access, long-term antibiotics Comparison: None. Findings: Informed consent was obtained. The patient's left arm was prepped and draped usual sterile fashion. Local anesthesia was accomplished with 1% lidocaine. Utilizing both sonographic and fluoroscopic gu idance a 32 cm long trimmed 4 [place] single lumen power PICC was inserted via the patent left basilic vein with the distal tip resting in the superior vena cava. The PICC line was flushed with 5 mL of saline flush. The proximal portion PICC line was adhered the patient's arm the sterile dressing. Th e sonographic images were saved to PACS. The procedure was accomplished without apparent complicatio n. The fluoroscopy dose area product was 709.48 micro-[place] per meter squared. IMPRESSION: 1. Successful placement of a 32 cm long trimmed 4 [place] single lumen power PICC inserted via the patent left basilic vein with the distal tip resting in superior vena cava Report Dictated By: Astrid Kitchen MD at 06/01/2018 6:03 PM Report E-Signed By: Astrid Kitchen MD at 06/01/2018 6:06 PM WSN:[email or web address]
== END ==
LOC: RAD 07:29
PROVIDERS: ATTEND Family Medicine
DX: Z45.2 Encounter for adjustment and management of vascular access device (principal)
CPT/HCPCS: 36569; 76937; C1751

== ENCOUNTER → 2018-06-02 | Outpatient (CLI) | payer OTHER ==
[2018-02-11 12:35] VITALS: BMI 27.0
[2018-06-02 13:57] VITALS: BP 125/64
== END ==
LOC: SPU 07:25
PROVIDERS: ATTEND Family Medicine
DX: S82.842B Displaced bimalleolar fracture of left lower leg, initial encounter for open fracture type I or II (principal)

== ENCOUNTER → 2018-06-07 | Outpatient (REF) | payer OTHER ==
[2018-02-11 12:35] VITALS: BMI 27.0
== END ==
LOC: ZZLCC 08:26
PROVIDERS: ATTEND Family Medicine
DX: L03.116 Cellulitis of left lower limb (principal); N18.3 Chronic kidney disease, stage 3 (moderate); I25.10 Atherosclerotic heart disease of native coronary artery without angina pectoris
CPT/HCPCS: 82040; 82247; 82310; 82374; 82435; 82550; 82565; 82947; 84075; 84132; 84155; 84295; 84450; 84460; 84520; 85027; 85651; 86140

== ENCOUNTER 2018-06-15 09:49 | Emergency (ER) | payer MEDICARE, BC ==
[2018-02-11 12:35] VITALS: BMI 27.0
--- NOTE | 2018-06-15 09:42 | ER Report ---
History and Physical Time Seen By MD: 09:42 HPI/ROS CHIEF COMPLAINT: Decreased mental status, fever HISTORY OF PRESENT ILLNESS: Patient is an 82-year-old male with multiple medical problems including chronic kidney disease stage III, history of current treatment for a left ankle wound on daptomycin 700 mg daily through PICC line. Sentence in the emergency department for declining level of alertness and generalized fatigue over the last 24 hours. Report by EMS states patient [facility] a [facility]. He did receive a liter of IV fluids through his PICC line last evening as well. Because of the continued decline in mental status patient's primary care provider Dr. Wright, was contacted and he instructed for the patient to be evaluated in the emergency department. The patient is a poor historian secondary to cognitive communication dysfunction. So history from patient is somewhat limited. The [facility] jail records were reviewed. The patient is a DNR/DNI. REVIEW OF SYSTEMS: Constitutional: Declining level of alertness, fever Skin: Grade 3 decubitus ulcer to the medial aspect of the left ankle. Patient otherwise unable to provide useful review of systems Allergies: Coded Allergies: No Known Drug Allergies (Unverified , 06/15/18) Home Meds Active Scripts Quetiapine Fumarate (SEROQUEL) 25 Mg Tablet, 12.5 MG PO QAM, #15 TAB Prov:[facility] 03/03/18 Quetiapine Fumarate (SEROQUEL) 25 Mg Tablet, 25 MG PO QHS, #30 TAB Prov:[facility] 03/03/18 Apixaban (ELIQUIS) 2.5 Mg Tablet, 2.5 MG PO BID, #60 TAB Prov:[facility] 03/03/18 Hydralazine Hcl (HYDRALAZINE HCL) 50 Mg Tablet, 50 MG PO BID, #60 TAB Prov:TORRI LOWRY MD 02/12/18 Acetaminophen (TYLENOL) 325 Mg Tablet, 325 MG PO Q6H PRN for PAIN MDD 4000mg for 30 Days, TAB Prov:TORRI LOWRY MD 02/12/18 Reported Medications Insulin Glargine,Hum.rec.anlog (Basaglar Kwikpen U-100) 100 Unit/Ml (3 Ml) Insuln.pen, 27 UNITS SQ DAILY 06/15/18 Triamcinolone Acetonide 0.1% Cr 15 Gm Tube (TRIAMCINOLONE ACETONIDE 0.1% CREAM) 15 Gm Cream..g., 1 APPLIC TP BID, TUBE 02/10/18 Insulin Glargine 100 Un/Ml Pen (LANTUS SOLOSTAR PEN) 100 Unit/1 Ml Insuln.pen, 27 UNIT SQ QHS, ML 02/10/18 Doxazosin Mesylate (DOXAZOSIN MESYLATE) 8 Mg Tablet, 8 MG PO HS 02/10/18 Amlodipine Besylate (AMLODIPINE BESYLATE) 10 Mg Tablet, 1 TAB PO QDAY, TAB 02/10/18 Insulin Aspart 100 Un/Ml Pen (NOVOLOG FLEXPEN) 100 Unit/1 Ml Insuln.pen, 4 UNIT SQ TID, ML With meals. 11/01/17 Nitroglycerin (NITROSTAT) 0.4 Mg Subl, 0.4 MG SL Q5MIN 11/01/17 Clobetasol Propionate/Emoll (CLOBETASOL EMOLLIENT 0.05% CRM) 15 Gm Cream..g., 0 TP BID 11/01/17 Calcitriol (CALCITRIOL) 0.25 Mcg Cap, 0.25 MCG PO 5 times a week, CAP 11/01/17 Metoprolol Succinate (TOPROL XL) 100 Mg Tab.er.24h, 1 TAB PO QDAY, TAB 08/13/16 Oxygen (OXYGEN) 2 L Inha, 2 L INH HS PRN for SEE COMMENT, L 12/06/14 Discontinued Reported Medications Benazepril Hcl (BENAZEPRIL HCL) 40 Mg Tablet, 40 MG PO QDAY, TAB 04/08/18 Tramadol Hcl (TRAMADOL HCL) 50 Mg Tablet, 50-100 MG PO Q4-6H, TAB 03/22/18 Simvastatin (SIMVASTATIN) 40 Mg Tablet, 40 MG PO HS, TAB 02/10/18 Discontinued Scripts Cephalexin Monohydrate (CEPHALEXIN) 500 Mg Cap, 500 MG PO Q8H for 10 Days, #30 CAP 0 Refills Prov:NANCY HOPE MD 03/22/18 Past Medical/Surgical History Past medical history for renal mass, chronic kidney disease stage III GFR of 30- 59. History of multiple falls history of pneumonia history of Mobitz type I, history of pacemaker placement, history of coronary artery disease, type II diabetes, urinary tract infection. Patient is anticoagulated with Eliquis, displaced bimalleolar fracture of left lower leg initial encounter for open fr acture, generalized muscle weakness, history of urinary tract infection, chronic atrial fibrillation, history of cognitive communication deficit, history of acute embolism and thrombosis of unspecified deep veins of the lower extremity bilaterally. Hx Smoking: Yes Smoking Status: Never Smoker Exposure to Second Hand Smoke?: No Hx Substance Use Disorder: No Hx Alcohol Use: Yes (Yes beer & Gin) Constitutional Vital Sign - Last 24 Hours 06/15/18 06/15/18 06/15/18 06/15/18 09:44 09:49 09:54 09:59 Temp 100.0 Pulse 60 60 60 60 Resp 30 26 24 B/P (MAP) 144/60 Pulse Ox 92 92 89 92 O2 Delivery Nasal Cannula 06/15/18 06/15/18 06/15/18 06/15/18 10:00 10:02 10:04 10:09 Pulse ??? 60 Resp 38 24 B/P (MAP) 164/73 (103) 161/81 (107) Pulse Ox 90 06/15/18 06/15/18 06/15/18 06/15/18 10:14 10:16 10:19 10:24 Pulse 60 60 60 Resp 48 21 29 B/P (MAP) 158/68 (98) Pulse Ox 84 90 88 06/15/18 06/15/18 10:29 10:30 Temp 97.6 Pulse 60 Resp 28 B/P (MAP) 147/67 (93) Pulse Ox 93 Physical Exam General/Constitutional: Patient is awake, repetitive words. Not answering specific questions. Head: Normocephalic and atraumatic. Eyes: Conjunctival clear, Pupils are equal and reactive to light. Extraocular muscles are intact and symmetrical. Sclera are clear and anicteric. Ears:External canals are clear. Tympanic membranes are clear with normal la ndmarks and light reflex. Nares: No rhinorrhea or bleeding. Turbinates are pink and moist. Oropharyngeal: Mucous membranes are moist. There is no pharyngeal erythema or exudate. There are no palatal petechiae. Uvula is midline and symmetrical. Neck: Supple, no adenopathy. Cardiovascular: Heart is regular rate and rhythm without audible murmurs, rubs or gallops. Pulmonary: Lungs are clear to auscultation bilaterally. There are no wheezes, rales, or rhonchi. Chest rise is symmetrical Abdomen: Soft, nontender, no guarding or peritoneal signs. Extremities: No gross deformities, No peripheral cyanosis. Able to move all 4 extremities. Neuro: Alert, verbally combative; confused Skin: No rashes, skin is warm dry and well perfused, examination of the chronic ankle wound reveals a grade 3 decubitus ulcer with good granulation tissue and no surrounding erythema no purulent discharge. Medical Decision Making Data Points Result Diagram: 06/15/18 1000 06/15/18 1000 Laboratory Hematology Test 06/15/18 10:00 06/15/18 10:10 06/15/18 10:15 06/15/18 12:00 Red Blood Count 3.45 M/uL (4.00-5.60) Mean Corpuscular Volume 88.0 fL (80.0-96.0) Mean Corpuscular Hemoglobin 28.9 pg (26.0-33.0) Mean Corpuscular Hemoglobin Concent 32.9 g/dL (32.0-36.0) Red Cell Distribution Width 16.9 % (11.5-14.5) Mean Platelet Volume 8.1 fL (7.2-11.1) Neutrophils (%) (Auto) 59.1 % (39.4-72.5) Lymphocytes (%) (Auto) 26.4 % (17.6-49.6) Monocytes (%) (Auto) 13.6 % (4.1-12.4) Eosinophils (%) (Auto) 0.3 % (0.4-6.7) Basophils (%) (Auto) 0.6 % (0.3-1.4) Nucleated RBC Relative Count (auto) 0.3 /100WBC Neutrophils # (Auto) 2.4 K/uL (2.0-7.4) Lymphocytes # (Auto) 1.1 K/uL (1.3-3.6) Monocytes # (Auto) 0.5 K/uL (0.3-1.0) Eosinophils # (Auto) 0.0 K/uL (0.0-0.5) Basophils # (Auto) 0.0 K/uL (0.0-0.1) Nucleated RBC Absolute Count (auto) 0.01 K/uL Erythrocyte Sedimentation Rate 70 mm/HOUR (0-20) Prothrombin Time 15.7 seconds (12.0-14.4) Prothromb Time International Ratio 1.24 Activated Partial Thromboplast Time 34 seconds (23-35) Sodium Level 138 mmol/L (137-145) Potassium Level 4.9 mmol/L (3.5-5.0) Chloride Level 107 mmol/L (98-107) Carbon Dioxide Level 21 mmol/L (22-30) Blood Urea Nitrogen 60 mg/dl (9-21) Creatinine 3.30 mg/dl (0.66-1.25) Glomerular Filtration Rate Calc 18.0 Random Glucose 300 mg/dl (75-110) Lactate 1.8 mmol/L (0.7-2.1) Calcium Level 9.9 mg/dl (8.4-10.2) Magnesium Level 2.5 mg/dl (1.7-2.2) Total Bilirubin 0.2 mg/dl (0.2-1.3) Aspartate Amino Transf (AST/SGOT) 57 U/L (0-35) Alanine Aminotransferase (ALT/SGPT) 35 U/L (0-56) Alkaline Phosphatase 66 U/L (0-126) C-Reactive Protein 14.6 mg/dl (<1.0) Total Protein 6.1 g/dl (6.3-8.2) Albumin 2.9 g/dl (3.5-5.0) Urine Color Yellow Urine Clarity Clear Urine pH 5.0 pH (4.8-9.5) Urine Specific [place] 1.014 Urine Protein 30 mg/dL (NEGATIVE) Urine Glucose (UA) 150 mg/dL (NEGATIVE) Urine Ketones Negative mg/dL (NEGATIVE) Urine Blood Negative (NEGATIVE) Urine Nitrite Negative (NEGATIVE) Urine Bilirubin Negative (NEGATIVE) Urine Urobilinogen Negative mg/dL (0.2-1.9) Urine Leukocyte Esterase Negative (NEGATIVE) Urine RBC None /HPF (0-2/HPF) Urine WBC 1 /HPF (0-5/HPF) Urine Squamous Epithelial Cells Many /LPF (NONE-FEW) Urine Transitional Epithelial Cells Few /LPF (NONE-FEW) Urine Bacteria Negative /HPF (NONE-FEW) Urine Hyaline Casts Few /LPF (NONE-FEW) Urine Mucus None /HPF (NONE-FEW) Stool Occult Blood (IFOB) Positive (NEGATIVE) Troponin I 0.104 ng/ml Chemistry Test 06/15/18 10:00 06/15/18 10:10 06/15/18 10:15 06/15/18 12:00 White Blood Count 4.0 k/uL (4.5-11.0) Red Blood Count 3.45 M/uL (4.00-5.60) Hemoglobin 10.0 g/dL (14.0-18.0) Hematocrit 30.4 % (42.0-52.0) Mean Corpuscular Volume 88.0 fL (80.0-96.0) Mean Corpuscular Hemoglobin 28.9 pg (26.0-33.0) Mean Corpuscular Hemoglobin Concent 32.9 g/dL (32.0-36.0) Red Cell Distribution Width 16.9 % (11.5-14.5) Platelet Count 221 K/uL (150-450) Mean Platelet Volume 8.1 fL (7.2-11.1) Neutrophils (%) (Auto) 59.1 % (39.4-72.5) Lymphocytes (%) (Auto) 26.4 % (17.6-49.6) Monocytes (%) (Auto) 13.6 % (4.1-12.4) Eosinophils (%) (Auto) 0.3 % (0.4-6.7) Basophils (%) (Auto) 0.6 % (0.3-1.4) Nucleated RBC Relative Count (auto) 0.3 /100WBC Neutrophils # (Auto) 2.4 K/uL (2.0-7.4) Lymphocytes # (Auto) 1.1 K/uL (1.3-3.6) Monocytes # (Auto) 0.5 K/uL (0.3-1.0) Eosinophils # (Auto) 0.0 K/uL (0.0-0.5) Basophils # (Auto) 0.0 K/uL (0.0-0.1) Nucleated RBC Absolute Count (auto) 0.01 K/uL Erythrocyte Sedimentation Rate 70 mm/HOUR (0-20) Prothrombin Time 15.7 seconds (12.0-14.4) Prothromb Time International Ratio 1.24 Activated Partial Thromboplast Time 34 seconds (23-35) Glomerular Filtration Rate Calc 18.0 Lactate 1.8 mmol/L (0.7-2.1) Calcium Level 9.9 mg/dl (8.4-10.2) Magnesium Level 2.5 mg/dl (1.7-2.2) Total Bilirubin 0.2 mg/dl (0.2-1.3) Aspartate Amino Transf (AST/SGOT) 57 U/L (0-35) Alanine Aminotransferase (ALT/SGPT) 35 U/L (0-56) Alkaline Phosphatase 66 U/L (0-126) C-Reactive Protein 14.6 mg/dl (<1.0) Total Protein 6.1 g/dl (6.3-8.2) Albumin 2.9 g/dl (3.5-5.0) Urine Color Yellow Urine Clarity Clear Urine pH 5.0 pH (4.8-9.5) Urine Specific [place] 1.014 Urine Protein 30 mg/dL (NEGATIVE) Urine Glucose (UA) 150 mg/dL (NEGATIVE) Urine Ketones Negative mg/dL (NEGATIVE) Urine Blood Negative (NEGATIVE) Urine Nitrite Negative (NEGATIVE) Urine Bilirubin Negative (NEGATIVE) Urine Urobilinogen Negative mg/dL (0.2-1.9) Urine Leukocyte Esterase Negative (NEGATIVE) Urine RBC None /HPF (0-2/HPF) Urine WBC 1 /HPF (0-5/HPF) Urine Squamous Epithelial Cells Many /LPF (NONE-FEW) Urine Transitional Epithelial Cells Few /LPF (NONE-FEW) Urine Bacteria Negative /HPF (NONE-FEW) Urine Hyaline Casts Few /LPF (NONE-FEW) Urine Mucus None /HPF (NONE-FEW) Stool Occult Blood (IFOB) Positive (NEGATIVE) Troponin I 0.104 ng/ml Coagulation Test 06/15/18 10:00 Prothrombin Time 15.7 seconds Prothromb Time International Ratio 1.24 Activated Partial Thromboplast Time 34 seconds Urinalysis Test 06/15/18 10:10 Urine Color Yellow Urine Clarity Clear Urine pH 5.0 pH (4.8-9.5) Urine Specific [place] 1.014 Urine Protein 30 mg/dL (NEGATIVE) Urine Glucose (UA) 150 mg/dL (NEGATIVE) Urine Ketones Negative mg/dL (NEGATIVE) Urine Blood Negative (NEGATIVE) Urine Nitrite Negative (NEGATIVE) Urine Bilirubin Negative (NEGATIVE) Urine Urobilinogen Negative mg/dL (0.2-1.9) Urine Leukocyte Esterase Negative (NEGATIVE) Urine RBC None /HPF (0-2/HPF) Urine WBC 1 /HPF (0-5/HPF) Urine Squamous Epithelial Cells Many /LPF (NONE-FEW) Urine Transitional Epithelial Cells Few /LPF (NONE-FEW) Urine Bacteria Negative /HPF (NONE-FEW) Urine Hyaline Casts Few /LPF (NONE-FEW) Urine Mucus None /HPF (NONE-FEW) EKG/Imaging EKG Interpretation EKG shows atrial flutter with a ventricular rate of 70 bpm. No evidence of pacer spikes however once magnet was applied; patient went into asynchronous and fixed mode at a rate of approximately 60 bpm with pacer spikes apparent on the rhythm strip Monitor Interpretation: Atrial Flutter Imaging FACILITY: [facility] [place] PATIENT NAME: Pawel Azul : 1935 MR: [id number] V: [id number] EXAM DATE: ORDERING PHYSICIAN: DARYL HAMILTON TECHNOLOGIST: Location[place] [facility] [place] Patient: Pawel Azul : 1935 Visit/Account:[id number] Date of Sevice: 06/15/2018 Exam type: CHEST SINGLE AP History: grade 3 decubitus ulcer over ankle Comparison: March 22, 2018. Findings: There is patchy airspace consolidation seen in the right mid to lower lung field and throughout the left lung. These findings were not present on the prior study. The cardiac silhouette is enlarged but unchanged. Dual lead cardiac pacemaker again noted. IMPRESSION: 1. Patchy airspace consolidation as noted bilaterally which was not present on the prior study. Findings are concerning for multifocal pneumonia Report Dictated By: Astrid Kitchen MD at 06/15/2018 10:53 AM Report E-Signed By: Astrid Kitchen MD at 06/15/2018 10:54 AM WSN:[email or web address] FACILITY: [facility] [place] PATIENT NAME: Pawel Azul : 1935 MR: [id number] V: [id number] EXAM DATE: ORDERING PHYSICIAN: DARYL HAMILTON TECHNOLOGIST: Location: [facility] [place] Patient: Pawel Azul : 1935 Visit[facility]Account:[id number] [facility] Exam type: ANKLE 2 VIEW LEFT History: grade 3 decubitus ulcer over ankle Comparison: May 10, 2018. Findings: Two views the left ankle were submitted. There are post surgical changes from side plate and screws transfixing an old distal left fibular fracture is ununited fracture through the medial malleolus that appear some are to the prior study. There is irregular cortical thickening and heterotopic bone seen along the posterior aspect of the distal left fibula which may be related to healing fracture. There is soft tissue swelling soft tissue gas seen along the medial aspect of the left ankle consistent with the clinical history of grade 3 decubitus ulcer. Extensive vascular calcifications are noted IMPRESSION: 1. There is soft tissue swelling and soft tissue gas over the medial aspect left ankle consistent with clinical history of a grade 3 decubitus ulcer Postsurgical changes of the distal left fibula as described above with increasing cortical thickening Ununited fracture through the medial malleolus appears similar to the prior study Report Dictated By: Astrid Kitchen MD at 06/15/2018 10:54 AM Report E-Signed By: Astrid Kitchen MD at 06/15/2018 10:57 AM WSN:[email or web address] ED Course/Re-evaluation Clinical Indication for ER IV: IV Access ED Course 06/15/2018 11:24:58 am bloodwork including CBC, ESR, C-reactive protein are unchanged from yesterday. However patient does have a troponin of 0.1 which is running high and of the indeterminate range. Chest x-ray shows multi lobar pneumonia patient is currently on daptomycin but certainly the coverage is not broad enough to cover for pneumonia. We will start the patient on Rocephin and Zithromax IV. My suspicion is the elevated troponin is secondary to the pneumonia rather than actual acute coronary syndrome. I did discuss the possibility with the family that this patient could have a cardiac issue causing ischemia. Discussed the possible treatments which would require transfer to a higher level of care. Speaking with both the patient's son, Humza by phone at [phone]; and the patient's they do not feel that they would pursue any type of invasive cardiac intervention. Both and son are current power of contract attorney for this patient as he is unable to make his own medical decisions. They would feel if he would require hospitalization they would not want transfer, understanding the patient's condition could worsen. They feel that they would not take any major steps or interventions including cardiac catheterization, dialysis or major surgery as they feel that patient would not want this done. 06/15/2018 12:41:22 pm 2 hour troponin is unchanged. I did speak with Dr Vincent regarding this patient. History physical exam all pertinent lab data and imaging studies were reviewed. Both the patient's family and myself and feel the patient can be appropriately managed at the [facility] with doses of Rocephin and Zithromax and have him continue dapsone as prescribed. Patient's next Rocephin and Zithromax would be due tomorrow. I will place the patient on a 4 more days of Zithromax along with 4 days of IV Rocephin Decision to Disposition Date: Jun 15, 2018 Decision to Disposition Time: 12:46 Depart Departure Latest Vital Signs Vital Signs Date Time Temp Pulse Resp B/P (MAP) Pulse Ox O2 Delivery O2 Flow Rate FiO2 06/15/18 10:30 97.6 147/67 (93) 06/15/18 10:29 60 28 93 06/15/18 09:44 Nasal Cannula Impression: Primary Impression: Pneumonia Condition: Improved Disposition: HOME OR SELF-CARE Referrals: ERROL WRIGHT DO (PCP) 2 Days if no improvement Patient Instructions: Bacterial Pneumonia (DC) Additional Instructions: Rocephin 1 g IV piggyback every 24 hours for 4 days; next dose on June 16 Azithromycin 500 mg IV piggyback every 24 hours for 4 days; next dose on June 16 Continue daptomycin as directed Problem Qualifiers Primary Impression: Pneumonia Pneumonia type: due to unspecified organism Laterality: bilateral Lung location: unspecified part of lung Qualified Codes: J18.9 - Pneumonia, unspecified organism DARYL HAMILTNO MD Jun 15, 2018 09:42
[~2018-06-15 09:49] MED LIST changes: -INSU100I10 SQ
[2018-06-15] MEDS ORDERED: NS(*) 0.9% 1000 ML BAG 1,000 ML IV ONE (10:00)
[2018-06-15 10:13] LABS: PLATELET COUNT, AUTOMATED 221 K/uL (150-450)
--- NOTE | 2018-06-15 10:15 | EKG ---
FACILITY: [facility] - [place] PATIENT NAME: KATHYA BRYAN : [id number] MR: [id number] V: [id number] EXAM DATE: ORDERING PHYSICIAN: DARYL HAMILTON TECHNOLOGIST: ALMA ROSA Murphy Reason : SEPSIS Blood Pressure : / mmHG Vent. Rate : 060 BPM Atrial Rate : 267 BPM P-R Int : 000 ms QRS Dur : 140 ms QT Int : 466 ms P-R-T Axes : 089 079 094 degrees QTc Int : 466 ms Atrial flutter Left bundle branch block Abnormal ECG Confirmed by TORRI LOWRY ([id number]) on 06/15/2018 7:52:49 PM Referred By: Confirmed By:TORRI LOWRY
[2018-06-15 10:26] LABS: INR 1.24
--- NOTE | 2018-06-15 10:59 | RADIOLOGY IMAGING REPORT ---
FACILITY: [facility] [place] PATIENT NAME: Pawel Azul : 1935 MR: [id number] V: [id number] EXAM DATE: ORDERING PHYSICIAN: DARYL HAMILTON TECHNOLOGIST: Location: [facility] [place] Patient: Pawel Azul : 1935 Visit/Account:[id number] Date of Sevice: 06/15/2018 Exam type: CHEST SINGLE AP History: grade 3 decubitus ulcer over ankle Comparison: March 22, 2018. Findings: There is patchy airspace consolidation seen in the right mid to lower lung field and throughout the l eft lung. These findings were not present on the prior study. The cardiac silhouette is enlarged bu t unchanged. Dual lead cardiac pacemaker again noted. IMPRESSION: 1. Patchy airspace consolidation as noted bilaterally which was not present on the prior study. Fin dings are concerning for multifocal pneumonia Report Dictated By: Astrid Kitchen MD at 06/15/2018 10:53 AM Report E-Signed By: Astrid Kitchen MD at 06/15/2018 10:54 AM WSN:[email or web address]
--- NOTE | 2018-06-15 11:01 | RADIOLOGY IMAGING REPORT ---
FACILITY: [facility] [place] PATIENT NAME: Pawel Azul : 1935 MR: [id number] V: [id number] EXAM DATE: ORDERING PHYSICIAN: DARYL HAMILTON TECHNOLOGIST: Location: [facility] Patient: Pawel Azul : 1935 Visit/Account:[id number] Date of Sevice: 06/15/2018 Exam type: ANKLE 2 VIEW LEFT History: grade 3 decubitus ulcer over ankle Comparison: May 10, 2018. Findings: Two views the left ankle were submitted. There are post surgical changes from side plate and screws transfixing an old distal left fibular fracture is ununited fracture through the medial malleolus halima t appear some are to the prior study. There is irregular cortical thickening and heterotopic bone se en along the posterior aspect of the distal left fibula which may be related to healing fracture. Th ere is soft tissue swelling soft tissue gas seen along the medial aspect of the left ankle consistent with the clinical history of grade 3 decubitus ulcer. Extensive vascular calcifications are noted IMPRESSION: 1. There is soft tissue swelling and soft tissue gas over the medial aspect left ankle consistent wi th clinical history of a grade 3 decubitus ulcer Postsurgical changes of the distal left fibula as described above with increasing cortical thickening Ununited fracture through the medial malleolus appears similar to the prior study Report Dictated By: Astrid Kitchen MD at 06/15/2018 10:54 AM Report E-Signed By: Astrid Kitchen MD at 06/15/2018 10:57 AM WSN:[email or web address]
[2018-06-15] MEDS ORDERED: cefTRIAXone 1 GM VIAL IVP ONE (11:05)
[2018-06-15] MEDS ORDERED: AZITHROMYCIN(*) 500 MG 500 MG in NS(*) 0.9% 250 ML BAG 250 ML IVPB ONE (11:05)
[2018-06-15] MEDS ORDERED: INSU100I10 SQ (12:13)
[2018-06-15 13:00] VITALS: BP 109/58
== END 2018-06-15 13:15 | disposition home or self-care (01) ==
LOC: ER 09:53
DX: J18.9 Pneumonia, unspecified organism (principal)
CPT/HCPCS: 36415; 71045; 73600; 81001; 82274; 83605; 83735; 84484; 85025; 85610; 85651; 85730; 86140; 86850; 86900; 86901; 87040; 87088; 93005; 96365; 96366; 96375; 99284; J0456; J0696; J7030; J7050; 82040; 82247; 82310; 82374; 82435; 82565; 82947; 84075; 84132; 84155; 84295; 84450; 84460; 84520; C1758

== ENCOUNTER → 2018-06-15 | Outpatient (CLI) | payer MEDICARE, BC ==
[2018-02-11 12:35] VITALS: BMI 27.0
[~2018-06-15] MED LIST changes: +INSU100I10 SQ
== END ==
LOC: AMB 13:05
PROVIDERS: ATTEND Nurse Practitioner
DX: R41.82 Altered mental status, unspecified (principal)
CPT/HCPCS: A0425; A0428

== ENCOUNTER → 2018-06-15 | Outpatient (CLI) | payer MEDICARE, BC ==
[2018-02-11 12:35] VITALS: BMI 27.0
== END ==
LOC: AMB 09:19
PROVIDERS: ATTEND Nurse Practitioner
DX: R41.82 Altered mental status, unspecified (principal); E10.65 Type 1 diabetes mellitus with hyperglycemia; N18.3 Chronic kidney disease, stage 3 (moderate); R17 Unspecified jaundice; R09.02 Hypoxemia
CPT/HCPCS: A0425; A0429

== ENCOUNTER → 2018-06-16 | Outpatient (CLI) | payer MEDICARE, BC ==
[2018-02-11 12:35] VITALS: BMI 27.0
[~2018-06-16] MED LIST changes: +INSU100I10 SQ
== END ==
LOC: AMB 20:12
PROVIDERS: ATTEND Nurse Practitioner
DX: R41.82 Altered mental status, unspecified (principal); E10.65 Type 1 diabetes mellitus with hyperglycemia; F03.90 Unspecified dementia, unspecified severity, without behavioral disturbance, psychotic disturbance, mood disturbance, and anxiety
CPT/HCPCS: A0425; A0429

== ENCOUNTER → 2018-06-17 | Outpatient (CLI) | payer MEDICARE, BC ==
[2018-02-11 12:35] VITALS: BMI 27.0
[~2018-06-17] MED LIST changes: -AMLO-113 PO; +AMLO-127 PO
== END ==
LOC: AMB
PROVIDERS: ATTEND Nurse Practitioner
DX: R41.82 Altered mental status, unspecified (principal); Z74.01 Bed confinement status
CPT/HCPCS: A0425; A0428